=== PATIENT | male | born 1945 | race Caucasian/White ===

== ENCOUNTER 2024-09-14 16:15 | Emergency (ER) | payer OTHER, SELFPAY ==
[2024-09-14 16:22] VITALS: BP 167/94; PULSE 72; RESP 18; TEMP 36.5; O2SAT 97; BMI 23.5
--- NOTE | 2024-09-14 16:45 | ED.GENADULT ---
HPI - General Adult General Chief complaint: Abdominal Pain Stated complaint: Abdominal Pain Time Seen by Provider: 09/14/24 16:23 Source: patient Mode of arrival: ambulatory Limitations: no limitations History of Present Illness HPI narrative: 79-year-old male with a history of hypertension, hyperlipidemia, upper extremity paresthesia, recent diagnosis of bronchitis, history of cholecystectomy presents today with epigastric pain for the last 2 or 3 days. Mylanta makes it better. Nothing seems to make it worse. It is not associated with eating. Does not take his appetite away. He denies diarrhea or constipation. He denies fevers or chills. He denies pain with movement. Denies alcohol use. Denies tobacco use. Is currently on a Medrol Dosepak for his bronchitis. Otherwise denies any new medications. Pain does not radiate into his back. Pain does radiate into the left and right upper quadrant. Related Data Home Medications ?Medication ?Instructions ?Recorded ?Confirmed albuterol 90 mcg/actuation aerosol mcg inhalation Q4-6H PRN 09/14/24 inhaler amlodipine 5 mg tablet 5 mg PO DAILY 09/14/24 09/14/24 aspirin 81 mg chewable tablet 81 mg PO DAILY 09/14/24 09/14/24 (Roberto Chewable Low Dose Aspirin) famotidine 20 mg tablet (Acid 20 mg PO DAILY 09/14/24 09/14/24 Sock Ironer (famotidine)) gabapentin 100 mg capsule 100 mg PO TID 09/14/24 09/14/24 lisinopril 5 mg tablet 5 mg PO DAILY 09/14/24 09/14/24 methylprednisolone 4 mg tablets in See Rx Instructions PO .COMPLEX 09/14/24 09/14/24 a dose pack (Medrol (Artemio)) Previous Rx's ?Medication ?Instructions ?Recorded sucralfate 1 gram tablet (Carafate) 1 g PO QID PRN #30 tabs 09/14/24 Allergies Allergy/AdvReac Type Severity Reaction Status Date / Time No Known Drug Allergies Allergy Verified 09/14/24 16:33 Review of Systems Status of ROS: Reports: 10 or more systems reviewed and unremarkable except as noted in History and below PFSH PFSH Social History Smoking Status: Former smoker How often do you have a drink containing alcohol: never AUDIT-C Alcohol total score: 0 Non-prescribed substance use: denies use Exam Narrative: Exam Narrative: Well-nourished well-developed patient in no acute distress. Alert and oriented. Answers questions appropriately. Mood and affect are appropriate. Thoughts are goal oriented and rational. No tangential or magical thinking noted. Patient speaks in full sentences without needing to catch his breath. HEENT: Normocephalic atraumatic. Pupils are equally round reactive to light. Extraocular muscles are intact. Conjunctivae are moist without any icterus noted. Moist mucous membranes. Posterior pharynx is normal. Neck is soft without any lymphadenopathy or thyromegaly. No masses are appreciated. Cardiovascular: Heart is regular rate and rhythm S1 and S2 are present without any murmurs. Lungs: Clear to auscultation bilaterally no wheezes rhonchi or rales are appreciated. Patient takes deep breaths without any discomfort. Abdomen: Soft and nondistended with normal bowel sounds. He has mild epigastric discomfort. Mild right and left upper quadrant discomfort. Negative Carson sign. Hyperactive bowel sounds. Extremities: Bilateral lower extremities are without edema. Skin: Well perfused without any obvious rashes. Const: Vital Signs, click to edit/add: Vital Signs - 24 hr 09/14/24 16:22 Temperature 97.7 F Pulse Rate [Pulse Oximeter] 72 Respiratory Rate 18 Blood Pressure [Ri t Upper Arm] 167/94 H Pulse Oximetry 97 Oxygen Delivery Me thod Room Air Course Course ED Course: Patient was given a dose of Carafate. EKG, read by me, shows normal sinus rhythm, pulse 63. Right bundle-branch block. Blood work was unremarkable. Patient felt better after Carafate. Vital Signs Vital signs: Initial Vital Signs Temperature 97.7 F 09/14/24 16:22 Temperature Source Temporal Artery Scan 09/14/24 16:22 Pulse Rate 72 09/14/24 16:22 Respiratory Rate 18 09/14/24 16:22 Blood Pressure 167/94 H 09/14/24 16:22 Blood Pressure Mean 118 H 09/14/24 16:22 Blood Pressure Position Sitting 09/14/24 16:22 Pulse Oximetry 97 09/14/24 16:22 Oxygen Delivery Method Room Air 09/14/24 16:22 Vital Signs Temperature 97.7 F 09/14/24 16:22 Pulse Rate 72 09/14/24 16:22 Respiratory Rate 18 09/14/24 16:22 Blood Pressure 167/94 H 09/14/24 16:22 Pulse Oximetry 97 09/14/24 16:22 Oxygen Delivery Method Room Air 09/14/24 16:22 Temperature 97.7 F 09/14/24 16:22 Pulse Rate 72 09/14/24 16:22 Respiratory Rate 18 09/14/24 16:22 Blood Pressure 167/94 H 09/14/24 16:22 Pulse Oximetry 97 09/14/24 16:22 Oxygen Delivery Method Room Air 09/14/24 16:22 Medications Administered Medications: Discontinued Medications Generic Name Dose Route Start Last Admin Trade Name Freq PRN Reason Stop Dose Admin Sucralfate 1 gm 09/14/24 16:39 09/14/24 16:56 Sucralfate 1 Gm Tablet PO 09/14/24 16:40 1 gm ONCE ONE Administration Medical Decision Making MDM Narrative Medical decision making narrative: 79-year-old male with epigastric discomfort likely due to gastritis versus peptic ulcer disease. Other things considered included pancreatitis, ischemic bowel, hepatitis. Recommend daily Prilosec and Carafate p.r.n.. Follow-up as needed. Lab Data Lab results reviewed: Yes I reviewed the patient's lab results Labs: Lab Results 09/14/24 09/14/24 Range/Units 16:58 16:58 WBC 6.88 (4.50-11.00) K/uL RBC 4.18 L (4.30-5.90) m/uL Hgb 12.7 L (13.5-17.5) gm/dL Hct 38.0 (37.0-53.0) % MCV 91 (80-100) fL MCH 30 (26-34) pg MCHC 33 (32-36) gm/dL RDW Coeff of Diamond 12.2 (11.5-15.5) % Plt Count 300 (140-440) K/uL Neut % (Auto) 76.4 H (42.0-72.0) % Lymph % (Auto) 10.9 L (20-44) % [place] % (Auto) 11.3 H (0.0-11.0) % Eos % (Auto) 0.0 (0.0-7.0) % Baso % (Auto) 0.1 (0.0-3.0) % Neut # (Auto) 5.30 (1.7-7.0) K/uL Lymph # (Auto) 0.70 L (0.90-2.90) K/uL [place] # (Auto) 0.80 (0.00-0.90) K/UL Eos # (Auto) 0.00 (0.00-0.50) K/uL Baso # (Auto) 0.01 (0.00-0.30) K/uL Abs Immat Gran (auto) 0.09 (0.00-0.30) K/uL Imm/Tot Granulo (auto) 1.3 % Sodium 133 L (135-149) mmol/L Potassium 4.8 (3.6-5.1) mmol/L Chloride 96 (96-114) mmol/L Carbon Dioxide 29 (20-32) mmol/L Anion Gap 8 (7-15) mEq/L BUN 37 H (7-30) mg/dL Creatinine 0.9 (0.5-1.5) mg/dL Estimated Creat Clear 55.08 Estimated GFR 86 ml/min Glucose 135 H (60-115) mg/dL Lactate 1.2 (0.5-1.9) mmol/L Calcium 9.8 (8.4-10.6) mg/dL Total Bilirubin 1.1 (0.1-1.5) mg/dL Direct Bilirubin 0.3 (0.0-0.5) mg/dL AST 53 H (12-35) U/L ALT 44 (4-50) U/L Alkaline Phosphatase 65 (40-150) U/L Troponin I < 0.01 L Cancelled (0.01-0.04) ng/mL C-Reactive Protein < 0.5 L (0.5-1.0) mg/dL Total Protein 7.8 (6.0-8.3) g/dL Albumin 4.8 (3.3-5.0) g/dL Lipase 53 (23-300) U/L ECG Data Attestation: I personally reviewed and interpreted this ECG as follows: Discharge Plan Discharge Clinical Impression: Gastritis Patient Disposition: Home, Self-Care Condition: Stable Instructions: Diet for Stomach Ulcers and Gastritis (ED) Additional Instructions: Your pain is likely caused by an inflammation of the stomach or an ulcer of the stomach. You need to take a daily medication to decrease the amount of acid that is inside your stomach. You can buy omeprazole or Prilosec [id number] and take 1 tablet daily. In the meantime, you will be prescribed Carafate which will coat your stomach and relief your discomfort. You can take this up to 4 times a day. Usually, people do not need this for more than 1 week, until the Prilosec kicks in. You may need to have an endoscopy for a camera to look inside your stomach if you are not feeling better soon. I recommend you follow-up with your primary care provider in approximately 1 week to discuss how you are feeling and to discuss if you need any further testing. You can stop taking the Famotidine- this is similar to Prilosec but is a shorter acting, meaning it does not last as long. Prescriptions: New sucralfate [Carafate] 1 gram tablet 1 g PO QID PRNQty: 30 0RF No Action aspirin [Roberto Chewable Aspirin] 81 mg tablet,chewable 81 mg PO DAILY gabapentin 100 mg capsule 100 mg PO TID methylprednisolone [Medrol (Artemio)] 4 mg tablets,dose pack See Rx Instructions .ROUTE .COMPLEX Rx Instructions: orally per package directions amlodipine 5 mg tablet 5 mg PO DAILY famotidine [Acid Sock Ironer (famotidine)] 20 mg tablet 20 mg PO DAILY lisinopril 5 mg tablet 5 mg PO DAILY albuterol 90 mcg/actuation aerosol inhalation Q4-6H PRN Follow Up/Referrals: Provider,Not a Local [Primary Care Provider] - Stand Alone Forms: Local Eye [facility] Info Instructions
[2024-09-14] MEDS: SUCRALFATE 1 GM TABLET PO (16:56)
[2024-09-14 17:00] VITALS: BP 170/93; PULSE 64; O2SAT 94
[2024-09-14 17:04] LABS: Basophils Absolute Auto 0.01 K/uL (0.00-0.30); Basophils Percent Auto 0.1 % (0.0-3.0); Hemoglobin* 12.7 gm/dL (13.5-17.5); Immature Granulocytes Abs Auto 0.09 K/uL (0.00-0.30); Immature Granulocytes Pct Auto 1.3 %; Lymphocytes Percent Auto 10.9 % (20-44); Mean Corpuscular HGB Conc 33 gm/dL (32-36); Mean Corpuscular Hemoglobin 30 pg (26-34); Mean Corpuscular Volume 91 fL (80-100); Monocytes Percent Auto 11.3 % (0.0-11.0); Neutrophils Percent Auto 76.4 % (42.0-72.0); Platelet Count* 300 K/uL (140-440); RDW Coefficient of Variation % 12.2 % (11.5-15.5); Red Blood Count 4.18 m/uL (4.30-5.90); White Blood Count* 6.88 K/uL (4.50-11.00)
[2024-09-14 17:05] LABS: Lactate* 1.2 mmol/L (0.5-1.9)
[2024-09-14 17:24] LABS: Albumin* 4.8 g/dL (3.3-5.0); Chloride* 96 mmol/L (96-114); Sodium* 133 mmol/L (135-149)
[2024-09-14 17:25] LABS: Potassium* 4.8 mmol/L (3.6-5.1)
[2024-09-14 17:28] LABS: Alkaline Phosphatase* 65 U/L (40-150); Anion Gap 8 mEq/L (7-15); Aspartate Amino Transferase* 53 U/L (12-35); Bilirubin Direct* 0.3 mg/dL (0.0-0.5); Bilirubin Total* 1.1 mg/dL (0.1-1.5); Blood Urea Nitrogen* 37 mg/dL (7-30); Calcium* 9.8 mg/dL (8.4-10.6); Carbon Dioxide* 29 mmol/L (20-32); Creatinine* 0.9 mg/dL (0.5-1.5); Est. Creatinine Clearance* 55.08; Estimated Glomerular Filt Rate 86 ml/min; Glucose* 135 mg/dL (60-115); Lipase* 53 U/L (23-300); Total Protein* 7.8 g/dL (6.0-8.3)
[2024-09-14 17:29] VITALS: BP 159/109
[2024-09-14 17:29] LABS: Alanine Aminotransferase* 44 U/L (4-50)
[2024-09-14 17:30] LABS: Slide Review Reflex No
[2024-09-14 17:32] LABS: C Reactive Protein* < 0.5 mg/dL (0.5-1.0)
[2024-09-14 17:44] LABS: Troponin I* < 0.01 ng/mL (0.01-0.04)
[2024-09-14 18:00] VITALS: BP 158/74
== END 2024-09-14 18:44 | disposition home or self-care (01) ==
PROVIDERS: Emergency Provider Family Medicine
DX: K29.70 Gastritis, unspecified, without bleeding (principal)
CPT/HCPCS: 36415; 80048; 80076; 83605; 83690; 84484; 85025; 86140; 93005; 99284; A9270

== ENCOUNTER 2024-11-17 19:00 | Emergency (ER) | payer OTHER, SELFPAY ==
--- OUTSIDE RECORDS SUMMARY | 2024-11-17 19:03 | XMS_ITS | Encounter Summary ---
Author Organization [facility] Address [address] [place] [address] Care Team Providers Care It Technician Name Role Phone Tita Coates APRN, C.N.P., D.N.P. Primary Car e Provider Reason for Visit * Reason Comments Carpal Tunnel Carpal Tunnel * Outpatient (Routine) - Closed Specialty Diagnoses / Procedures Referred By Yaneth dawson Referred To Contact Orthopedic Surgery Diagnoses Carpal Tunnel Syndrome Bilateral Tita Coates APRN, C.N.P., D.N.P. [address] [place] [address] Phone: tel: fax: [facility] Region Referral ID Status Reason Start Date Expiration Date Visits Re quested Visits Authorized [id number] Closed 10/09/2024 04/10/2026 1 1 Encounter Details Date Type Department Care Team (Latest Contact Info) Description 10/30/2024 1:15 PM CDT Comprehensive Visit Department of Orthopedic Surgery in [place], [place] [address] [phone] Leonila Levy PWilber.-Eufemia., P.A. [address] [phone] Carpal Tunnel Syndrome Bilateral Social History Tobacco Use Types Packs/Day Years Used Date Smoking Tobacco: Former Cigarettes Q uit: 1988 Smokeless Tobacco: Never Alcohol Use Standard Drinks/Week Comments No 0 (1 standard drink = 0.6 oz pur e alcohol) [facility] Utilities Answer Date Recorded In the past 12 months has e electric, gas, oil, or water company threatened to shut off services in your home? No 10/27/2023 Humiliation, Afraid, Rape, and Kick questionnair e Answer Date Recorded Within the last year, have y ou been afraid of your partner or ex-partner? No 10/27/2023 Within the last year, have y ou been humiliated or emotionally abused in other ways by your partner or ex-partner? No Within the last year, have y ou been kicked, hit, slapped, or otherwise physically hurt by your partner or ex-partner? No 10/27/2023 Within the last year, have y ou been raped or forced to have any kind of sexual activity by your partner or ex-partner? No 10/27/2023 Social Connection and Isolat ion Panel [NHANES] Answer Date Recorded In a typical week, how many times do you talk on the phone with family, friends, or neighbors? More than three times a week 10/22/2021 How often do you get togethe r with friends or relatives? More than three times a week 10/22/2021 How often do you attend chur ch or samaritan services? Never 10/22/2021 Do you belong to any clubs o r organizations such as adventism groups, unions, fraternal or athletic groups, or school groups? No 10/22/2021 How often do you attend meet ings of the clubs or organizations you belong to? Never 10/22/2021 Are you , , di vorced, , never , or living with a partner? 10/22/2021 AUDIT-C Answer Date Recorded Q1: How often do you have a drink containing alc ohol? Never 10/22/2021 Average Number of Drinks Not on file 022 Frequency of Binge Drinking Not on file 01/2022 Overall Financial Resource Strain (CARDIA) Answe r Date Recorded How hard is it for you to pa y for the very basics like food, housing, medical care, and heating? Not hard at all 10/22/2021 PHQ-2 Answer Date Recorded PHQ-2 Score 0 09/05/2024 [facility] - Occupational Stress Questionnaire Answer Date Recorded Do you feel stress - tense, restless, nervous, or anxious, or unable to sleep at night because your mind is troubled all the time - these days? Not at all 10/22/2021 Exercise Vital Sign Answer Date Recorde d On average, how many days pe r week do you engage in moderate to strenuous exercise (like a brisk walk)? 4 days 10/27/2023 On average, how many minutes do you engage in exercise at this level? 10 min 10/27/2023 Hunger Vital Sign Answer Date Recorded Within the past 12 months, y ou worried that your food would run out before you got the money to buy more. Never true 10/27/19 24 Within the past 12 months, t he food you bought just didn't last and you didn't have money to get more. Never true 10/27/2023 PRAPARE - Transportation Answer Date Re corded In the past 12 months, has l ack of transportation kept you from medical appointments or from getting medications? No 10/16 In the past 12 months, has l ack of transportation kept you from meetings, work, or from getting things needed for daily living? No 10/27/2023 Depression Answer Date Recor ded PHQ-9 Total Score (max 27) 0 10/26 Nutrition Answer Date Recorded On average, how many serving s of fruits and vegetables do you eat per day (serving size is equal to 1 cup or approximately the size of a tennis ball)? 0-2 10/27/2023 Dental Answer Date Recorded Dental: Regular Dentist No 10/23/19 22 Employment Answer Date Recorded Employment status Employed and actively working without restrictions 10/27/2023 Housing Stability Answer Date Recorded What is your living situation today? I have a [facility] [place] place to live 10/27/2023 Education Answer Date Recorded What is the highest level of school you have completed or the highest degree you have received? 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 - 10/30/2024 1:15 PM CDT The patient has been informed of the other medical supply locations in the immediate area. The patient has been fitted with a Comfort Form wrist brace size medium for his Bilateral wrist as requestedby Leonila Levy PA-C Instructions were given on the proper care and usage of the product with the patient verbalizing understanding of the instructions. [facility] return and warranty policy was given and reviewed with the patient paperwork has been faxed to the [facility]. Marvin Lawrence A.T.C. Clinical Statistical Engineer Department of Orthopedics documented in this encounter Consult Notes * Leonila Levy P.A.-C., P.A. - 10/30/2024 1:15 PM CDT CHIEF COMPLAINT Bilateral hand numbness HISTORY OF PRESENT ILLNESS Mr. Zamarripa is a pleasant 79 y.o. year old male here today for bilateral hand numbness. This has been going on for about 1 year. The left is worse than the right. 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 He has the worst pain at night, he states that his thumb, index, middle and sometimes the ring finger will go numb, at bedtime they become significantly painful. He has not been wearing any braces. He gets up to move around and changed positions which is helpful for him, then he is able to go back to sleep for about 15 minutes before he is awakened again due to numbness and pain. During the day he occasionally has numbness in his hand when he is driving or holding ontoobjects for period of time. He states that his symptoms are the same on the right side however muchless bothersome for him. PHYSICAL EXAM GENERAL: This is a well-nourished, well-developed 79 y.o. male. He is alert and oriented x3. No acute distress. He is cooperative and responds appropriately to all questions. MUSCULOSKELETAL: No tenderness to palpation of the left or right hand. Negative Tinel's at the wrist and elbow bilaterally, negative Phalen's test bilaterally. Negative median nerve compression test bilaterally. Negative Nathaniel's test bilaterally. NEURO: Sensation is intact to light touch throughout bilateral upper extremities. Cap refill is less than 2 seconds. DIAGNOSTICS Bilateral upper extremity EMG performed on 10/09/2024 reviewed and shows electrophysiologic evidence of severe median neuropathies at the wrists bilaterally consistent with carpal tunnel syndrome. 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 ASSESSMENT/PLAN #1 Carpal Tunnel Syndrome Bilateral We have discussed that his EMG is consistent with bilateral severe carpal tunnel syndrome. We have discussed options including corticosteroid injection and carpal tunnel release. Due to the severity of his carpal tunnel syndrome I have recommended surgical release. He states that his insurance [facility]allows [facility]. I will reach out to colleagues in [place] for potential surgery to occur there. I will call him when I have heard back from their facility. documented in this encounter Plan of Treatment Not on file documented as of this encounter Visit Diagnoses Diagnosis Carpal Tunnel Syndrome Bilateral documented in this encounter Additional Health Concerns Assessment Noted Time PHQ-9 Depression Total Score: 0 10/27/19 24 10:34 AM CDT documented as of this encounter Care Teams It Technician Relationship Specialty Start Date End Date Tita Coates APRN, C.N.P., D.N.P. [address], [place] [address] PCP - General 03/18/24 documented as of this encounter
--- OUTSIDE RECORDS SUMMARY | 2024-11-17 19:03 | XMS_ITS | Encounter Summary ---
Author Organization [facility] Address [address] [place] [address] Care Team Providers Care Site Safety Coordinator Name Role Phone JaxonTita Vick BUENO, C.N.P., D.N.P. Primary Car e Provider Encounter Details Date Type Department Care Team (Late st Contact Info) Description 11/02/2024 Clinical Communication Department of Orthopedic Surgery in [place], [place] [address] [address] Leonila Levy P.A.-C., P.A. [address] [phone] Social History Tobacco Use Types Packs/Day Years Used Date Smoking Tobacco: Former Cigarettes Q uit: 1988 Smokeless Tobacco: Never Alcohol Use Standard Drinks/Week Comments No 0 (1 standard drink = 0.6 oz pur e alcohol) [facility] Utilities Answer Date Recorded In the past 12 months has [employer], gas, oil, or water [employer] threatened to shut off services in your [...] often do you attend chur ch or anabaptist services? Never 10/22/2021 Do you belong to any clubs o r organizations such as uatsdin groups, unions, fraternal or athletic groups, or [...] Answer Date Recorded PHQ-2 Score 0 09/05/2024 [facility] - Occupational Stress Questionnaire Answer Date Recorded [...] Date Recorded Dental: Regular Dentist No 10/23/19 Employment Answer Date Recorded Employment status Employed and actively working without restrictions 10/27/2023 Housing Stability Answer Date Recorded What is your living situation today? I have a [facility] place to live 10/27/2023 Education Answer Date Recorded What is the highest level of school you have completed or the highest degree you have received? 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 - 11/06/2024 8:16 AM CDT Referral placed to [facility] region. * Telephone Encounter - Mimi Chand C.M.A. - 11/02/2024 4:51 PM CDT Contacted patient and informed him of Leonila Levy's advise. Please let patient know that he could have surgery in [facility] or possibly [place] (he would have to see Dr. Salinas) for consult and possible surgery for his carpal tunnel surgery at a [facility]. I can send a referral for him based on where he would like to go. Patient verified understanding and stated that he would like the Referral to go to [place]. Please place Referral for [place] location. Msg forwarded to provider for review and response. documented in this encounter Plan of Treatment Not on file documented as of this encounter Visit Diagnoses Not on filedocumented in this encounter Additional Health Concerns Assessment Noted Time PHQ-9 Depression Total Score: 0 10/27/19 24 10:34 AM CDT documented as of this encounter Care Teams Site Safety Coordinator Relationship Specialty Start Date End Date Tita Coates APRN, C.N.P., D.N.P. [address] [place] [address] PCP - General 03/18/24 documented as of this encounter
--- OUTSIDE RECORDS SUMMARY | 2024-11-17 19:03 | XMS_ITS | Encounter Summary ---
Author Organization [facility] Address [address] [place] [address] Care Team Providers Care Bean Roaster Name Role Phone Tita Coates APRN, C.N.P., D.N.P. Primary Car e Provider Reason for Referral * Medication Prior Authorization - Closed Specialty Diagnoses / Procedures Referred By Contalyssa t Referred To Contact Diagnoses Hypertension Essential Primary Tita Coates APRN, C.N.P., D.N.P. [address] [address] Phone: tel: fax: Referral ID Status Reason Start Date Expiration Date Visits Re quested Visits Authorized [id number] Closed 1 1 Encounter Details Date Type Department Care Team (Late st Contact Info) Description 10/09/2024 Orders Only Department of Internal Medicine in [place], [place] [address] [place] [phone] Tita Coates APRN, C.N.P., D.N.P. [address] [phone] Hypertension Essential Primary Social History Tobacco Use Types Packs/Day Years Used Date Smoking Tobacco: Former Cigarettes Q uit: 1988 Smokeless Tobacco: Never Alcohol Use Standard Drinks/Week Comments No 0 (1 standard drink = 0.6 oz pur e alcohol) [facility] Utilities Answer Date Recorded In the past [...] often do you attend chur ch or orthodox services? 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 [address] [phone] PCP - General 03/18/24 documented as of this encounter
--- OUTSIDE RECORDS SUMMARY | 2024-11-17 19:03 | XMS_ITS | Encounter Summary ---
Author Organization [facility] Address [address] [place] [address] Care Team Providers Care Mds Rn Name Role Phone Tita Coates MYLES, C.N.P., D.N.P. Primary Car e Provider Reason for Visit * Reason Comments Med Refill Encounter Details Date Type Department Care Team (Late st Contact Info) Description 09/23/2024 Refill Department of Family Medicine, [facility], in [place], [place] [address] [phone] Elsy Winn APRN, C.N.P., D.N.P. [address] [phone] Med Refill Social History Tobacco Use Types Packs/Day Years Used Date Smoking Tobacco: Former Cigarettes Q uit: 1988 Smokeless Tobacco: Never Alcohol Use Standard Drinks/Week Comments No 0 (1 standard drink = 0.6 oz pur e alcohol) [facility] Utilities Answer Date Recorded In the past 12 months has [employer], gas, oil, or water company threatened [...] often do you attend chur ch or yarsani services? Never 10/22/2021 Do you belong to any clubs o r organizations such as anglican groups, unions, fraternal or athletic groups, or [...] Answer Date Recorded PHQ-2 Score 0 09/05/2024 [facility] of Occupat ional Health - Occupational Stress [...] money to buy more. Never true 10/27/19 Within the past 12 months, t he [...] your living situation today? I have a [facility] place to live 10/27/2023 Education Answer Date Recorded What is the highest level of school you have completed or the highest degree you have received? 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 [address] [place] [phone] PCP - General 03/18/24 documented as of this encounter
--- OUTSIDE RECORDS SUMMARY | 2024-11-17 19:03 | XMS_ITS | Encounter Summary ---
Author Organization [facility] Address [address] [place] [address] Care Team Providers Care Obstetrics Gynecology Physician Name Role Phone Tita Coates APRN, C.N.P., D.N.P. Primary Car e Provider Reason for Visit * Reason Onset Date Comments Results 09/05/2024 Encounter Details Date Type Department Care Team (Late st Contact Info) Description 09/05/2024 Results Follow-Up Department of Internal Medicine in [place], [place] [address] [phone] Tita Coates APRN, C.N.P., D.N.P. [address] [phone] Albumin, Random, Urine, EMG Social History Tobacco Use Types Packs/Day Years Used Date Smoking Tobacco: Former Cigarettes Q uit: 1988 Smokeless Tobacco: Never Alcohol Use Standard Drinks/Week Comments No 0 (1 standard drink = 0.6 oz pur e alcohol) [facility] Utilities Answer Date Recorded In the past [...] 10/22/2021 How often do you attend chur or church services? Never 10/22/2021 Do you belong to any clubs o r organizations such as restorationism groups, unions, fraternal or athletic groups, or [...] Answer Date Recorded PHQ-2 Score 0 09/05/2024 [facility] of Occupat ional Health - Occupational Stress [...] your living situation today? I have a [facility] place to live 10/27/2023 Education Answer Date Recorded What is the highest level of school you have completed or the highest degree you have received? 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 [address] [place] [phone] PCP - General 03/18/24 documented as of this encounter
--- OUTSIDE RECORDS SUMMARY | 2024-11-17 19:03 | XMS_ITS | Encounter Summary ---
Author Organization [facility] Address [address] [place] [address] Care Team Providers Care Top Stop Attacher Name Role Phone Tita Alcala APRN, C.N.P., D.N.P. Primary Car e Provider Reason for Visit * Reason Comments Emg * Outpatient (Routine) - Closed Specialty Diagnoses / Procedures Referred By Yaneth dawson Referred To Contact Diagnoses Numbness Hand Procedures EMG Tita Alcala APRN, C.N.P., D.N.P. [address] [address] Phone: tel: fax: [facility] Referral ID Status Reason Start Date Expiration Date Visits Re quested Visits Authorized [id number] Closed 09/05/2024 12/06/2025 1 1 Encounter Details Date Type Department Care Team (Late st Contact Info) Description 10/09/2024 11:15 AM CDT Diagnostic Department of Neurology in [place], [place] [address] [place] [phone] Ayana Brooks D.O. [address] [place] [address] Numbness Hand Social History Tobacco Use Types Packs/Day Years Used Date Smoking Tobacco: Former Cigarettes Q uit: 1988 Smokeless Tobacco: Never Alcohol Use Standard Drinks/Week Comments No 0 (1 standard drink = 0.6 oz pur e alcohol) [facility] Utilities Answer Date Recorded In the [...] often do you attend chur ch or hindu services? Never 10/22/2021 Do you belong to any clubs o r organizations such as jewish groups, unions, fraternal or athletic groups, or [...] Answer Date Recorded PHQ-2 Score 0 09/05/2024 [facility] of Occupat ional Health - Occupational Stress [...] your living situation today? I have a [facility] place to live 10/27/2023 Education Answer Date Recorded What is the highest level of school you have completed or the highest degree you have received? 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 09-Oct-2024 Electromyography Final Report Study Number: 1 EMG Director Of Family Service Center: Ayana Brooks 127 or [phone] Referred by: TITA ALCALA () Referred for: L>R hand numbness Referral Code: 211 RX: 211 SUMMARY: Prior to starting the procedure, the patient's identity was verified, pertinent available records were reviewed, the nature of the procedure was explained, the appropriate sites of the exam were confirmed directly with the patient, and a pre-procedure pause was performed for final verification of all of the above. Nerve conduction studies showed low amplitude median compound muscle action potentials with prolonged median motor distal latencies bilaterally. Median sensory responses were absent bilaterally. Ulnar motor studies were normal bilaterally. The ulnar sensory nerve action potentials were reduced bilaterally and radial sensory nerve action potentials were reduced on the left. Needle examination remarkable for large motor units in C5-6 innervated muscles on the left. CLINICAL INTERPRETATION: Abnormal study. There is electrophysiologic evidence of the followin) Severe median neuropathies at both wrists as seen with carpal tunnel syndrome. 2) Old/chronic inactive C5-C6 radiculopathy on the left. 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 Wilder Brooks (127 or [phone]) NERVE CONDUCTIONS Record Rep Normal Normal Distal Normal F-Wave F-Wave Temp Nerve Type Site Stim Side Amp Amp CV CV Lat Lat Lat Est ( C) Median Motor APB L 3.1 (> 4.0) 51 (> 48) 8.4 (< 4.5) 33.8 Ulnar Motor ADM L 6.5 (> 6.0) 52 (> 51) 2.4 (< 3.6) 33.5 Median Sensory Dig II L NR (> 15.0) (> 56) NR (< 3.6) 33.1 Radial Sensory Wrist L 11 (> 20.0) (> 49) 2.2 (< 2.9) 32.9 Ulnar Sensory Dig V L 6 (> 10.0) 54 (> 54) 3.0 (< 3.1) 33.8 Median Motor APB R 2.7 (> 4.0) 47 (> 48) 8.5 (< 4.5) 33.7 Ulnar Motor ADM R 6.4 (> 6.0) 52 (> 51) 2.8 (< 3.6) 34.2 Median Sensory Dig II R NR (> 15.0) (> 56) NR (< 3.6) 33.3 Ulnar Sensory Dig V R 4 (> 10.0) 54 (> 54) 2.9 (< 3.1) 34.7 NEEDLE EMG Ins Spont MUP Recruitment Duration Amplitude Phases Muscle Side Act Fib Fasc Normal Activ Reduced Rapid Long Short High Low % Turns First dorsal interosseous L NL 0 0 ----- +/- +/- +/- Extensor indicis proprius L NL 0 0 NL Pronator teres L NL 0 0 NL Biceps brachii L NL 0 0 ----- + + + Deltoid L NL 0 0 ----- + + + Triceps brachii L NL 0 0 NL First dorsal interosseous R NL 0 0 NL Pronator teres R NL 0 0 ----- +/- +/- +/- Triceps brachii R NL 0 0 NL This interpretation has been electronically signed: Ayana Brooks D.O. at 10/09/2024 12:54:29 PM CDT Tita Alcala APRN, C.N.P., D.N.P. NEUROLOGY OR DERABLES Final Result EMG documented in this encounter Visit Diagnoses Diagnosis Numbness Hand documented in this encounter Additional Health Concerns Assessment Noted Time PHQ-9 Depression Total Score: 0 10/27/19 24 10:34 AM CDT documented as of this encounter Care Teams Top Stop Attacher Relationship Specialty Start Date End Date Tita Alcala APRN, C.N.P., D.N.P. [address] [place] [phone] PCP - General 03/18/24 documented as of this encounter
--- OUTSIDE RECORDS SUMMARY | 2024-11-17 19:03 | XMS_ITS | Encounter Summary ---
Author Organization [facility] Address [address] [place] [address] Care Team Providers Care Rotary Furnace Tender Name Role Phone Tita Coates APRN, C.N.P., D.N.P. Primary Car e Provider Encounter Details Date Type Department Care Team (Late st Contact Info) Description 10/09/2024 Clinical Communication Department of Internal Medicine in [place], [place] [address] [phone] Tita Coates APRN, C.N.P., D.N.P. [address] [phone] Social History Tobacco Use Types Packs/Day Years Used Date Smoking Tobacco: Former Cigarettes Q uit: 1988 Smokeless Tobacco: Never Alcohol Use Standard Drinks/Week Comments No 0 (1 standard drink = 0.6 oz pur e alcohol) [facility] Utilities Answer Date Recorded In the past 12 months has [employer], gas, oil, or water [employer] threatened to shut off services in your [...] often do you attend chur ch or tenriism services? Never 10/22/2021 Do you belong to any clubs o r organizations such as episcopal groups, unions, fraternal or athletic groups, or [...] Answer Date Recorded PHQ-2 Score 0 09/05/2024 [facility] of Occupat ional Health - Occupational Stress [...] your living situation today? I have a [facility] place to live 10/27/2023 Education Answer Date Recorded What is the highest level of school you have completed or the highest degree you have received? 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 - 10/09/2024 11:43 AM CDT Patient was in for EMG testing today and brought a letter with him that he received from [employer] 09/27/24 stating that they need more information before they can fill his amlodipine 10 mg tab prescription. You can either call them at [phone] or fax the information to [phone]. Thank you. documented in this encounter Plan of Treatment Not on file documented as of this encounter Visit Diagnoses Not on filedocumented in this encounter Additional Health Concerns Assessment Noted Time PHQ-9 Depression Total Score: 0 10/27/19 10:34 AM CDT documented as of this encounter Care Teams Rotary Furnace Tender Relationship Specialty Start Date End Date Tita Coates APRN, C.N.P., D.N.P. [address] [place] [phone] PCP - General 03/18/24 documented as of this encounter
--- OUTSIDE RECORDS SUMMARY | 2024-11-17 19:03 | XMS_ITS | Encounter Summary ---
Author Organization [facility] Address [address] [place] [address] Care Team Providers Care Diamond Driller Helper Name Role Phone JaxonTita Vick BUENO C.N.PMey, D.N.P. Primary Car e Provider Reason for Referral * Outpatient (Routine) - Authorized Specialty Diagnoses / Procedures Referred By Yaneth dawson Referred To Contact Orthopedic Surgery Diagnoses Carpal Tunnel Syndrome Bilateral Leonila Levy P.A.-C., P.A. [address] [phone] Phone: tel: fax: [facility] Region Referral ID Status Reason Start Date Expiration Date V isits Requested Visits Authorized [id number] Authorized 11/06/2024 05/08/2026 1 1 Scheduling Instructions Wants to see Dr. Salinas, with potential to have surgery in [place]. Encounter Details Date Type Department Care Team (Late st Contact Info) Description 11/06/2024 Orders Only Department of Orthopedic Surgery in [place], [place] [address] [phone] Leonila Levy P.A.-C., P.A. [address] [phone] Carpal Tunnel Syndrome Bilateral (Primary Dx) Social History Tobacco Use Types Packs/Day Years Used Date Smoking Tobacco: Former Cigarettes Q uit: 1988 Smokeless Tobacco: Never Alcohol Use Standard Drinks/Week Comments No 0 (1 standard drink = 0.6 oz pur e alcohol) [facility] Utilities Answer Date Recorded In the [...] How often do you attend chur or muslim services? 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 Gender Identity Not on file Sexual Orientation Not on file documented as of this encounter Plan of Treatment Scheduled Referrals Name Type Priority Associated Diagnoses Order Schedule Orthopedic Surgery - Wrist / hand non surgical consult (clinic) Outpatient Referral Routine Carpal Tunnel Syndrome Bilateral Expected: 11/06/2024 (Approximate), Expires: 02/05/2026 documented as of this encounter Visit Diagnoses Diagnosis Carpal Tunnel Syndrome Bilateral- Primary documented in this encounter Additional Health Concerns Assessment Noted Time PHQ-9 Depression Total Score: 0 10/27/19 10:34 AM CDT documented as of this encounter Care Teams Diamond Driller Helper Relationship Specialty Start Date End Date Tita Coates APRN, C.N.P., D.N.P. [address] [place] [phone] PCP - General 03/18/24 documented as of this encounter
--- OUTSIDE RECORDS SUMMARY | 2024-11-17 19:03 | XMS_ITS | Encounter Summary ---
Author Organization [facility] Address [address] [place] [address] Care Team Providers Care Can Tender Name Role Phone Tita Coates APRN, C.N.P., D.N.P. Primary Car e Provider Reason for Referral * Outpatient (Routine) - Closed Specialty Diagnoses / Procedures Referred By Yaneth dawson Referred To Contact Orthopedic Surgery Diagnoses Carpal Tunnel Syndrome Bilateral Tita Coates APRN, C.N.P., D.N.P. [address] [address] Phone: tel: fax: [facility] Referral ID Status Reason Start Date Expiration Date Visits Re quested Visits Authorized [id number] Closed 10/09/2024 04/10/2026 1 1 Encounter Details Date Type Department Care Team (Late st Contact Info) Description 10/09/2024 Orders Only Department of Internal Medicine in [place], [place] [address] [place] [phone] Tita Coates APRN, C.N.P., D.N.P. [address] [phone] Carpal Tunnel Syndrome Bilateral (Primary Dx) Social History Tobacco Use Types Packs/Day Years Used Date Smoking Tobacco: Former Cigarettes Q uit: 1988 Smokeless Tobacco: Never Alcohol Use Standard Drinks/Week Comments No 0 (1 standard drink = 0.6 oz pur e alcohol) [facility] Utilities Answer Date Recorded In the past 12 months has th e electric, gas, oil, or water company [...] any clubs o r organizations such as christian groups, unions, fraternal or athletic groups, or [...] Answer Date Recorded PHQ-2 Score 0 09/05/2024 [facility] of Occupat ional [facility] - Occupational Stress Questionnaire Answer [...] your living situation today? I have a [facility] place to live 10/27/2023 Education Answer Date Recorded What is the highest level of school you have completed or the highest degree you have received? 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 Gender Identity Not on file Sexual Orientation Not on file documented as of this encounter Plan of Treatment Scheduled Referrals Name Type Priority Associated Diagnoses Order Schedule Orthopedic Surgery - Wrist / hand non surgical consult (clinic) Outpatient Referral Routine Carpal Tunnel Syndrome Bilateral Expected: 10/09/2024 (Approximate), Expires: 01/09/2026 documented as of this encounter Visit Diagnoses Diagnosis Carpal Tunnel Syndrome Bilateral- Primary documented in this encounter Additional Health Concerns Assessment Noted Time PHQ-9 Depression Total Score: 0 10/27/19 10:34 AM CDT documented as of this encounter Care Teams Can Tender Relationship Specialty Start Date End Date Tita Coates APRN, C.N.P., D.N.P. [address] [phone] PCP - General 03/18/24 documented as of this encounter
--- OUTSIDE RECORDS SUMMARY | 2024-11-17 19:04 | XMS_ITS | Clinical Summary ---
Author Organization [email or web address] Address [address] [place] [id number] Care Team Providers Care Director Of Global Sales Name Role Phone Thiago Huffman MD Primary Care Provider Allergies No known active allergies Medications DOCOSAHEXANOIC ACID/EPA (FISH OIL ORAL) Take 1,000 mg by mouth once daily. 1 Active atorvastatin (LIPITOR) 10 mg tablet Take 10 mg by mouth at bedtime. 9 Active amLODIPine (NORVASC) 10 mg tabletIndications :HTN (hypertension) Take 1 Tablet (10 mg) by mouth once daily. 10 Tablet 2 Active metoprolol succinate SR (TOPROL XL) 12.5 mg as half tablet Take 12.5 mg by mouth once daily. Active aspirin (ECOTRIN) 81 mg enteric coated tablet Take 81 mg by mouth once daily with a meal. Active albuterol 0.083% (2.5 mg/3 mL) neb solutionIndicatio ns:COPD exacerbation (HC) Inhale 3 mL (2.5 mg) via a nebulizer every 6 hours if needed for Shortness Of Breath or Wheezing. 30 Each 4 Active rx albuterol HFA (PROVENTIL; VENTOLIN) (90 mcg each actuation) inhaler (ED DC MED)Indications:C OPD exacerbation (HC) Inhale 2 Puffs by mouth every 4 hours if needed (wheezing). 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 Cholangitis 11/30/2022 Acute pancreatitis 11/28/2022 Solitary pulmonary nodule 12/16/2018 Rigors 12/16/2018 Liver mass 12/16/2018 Increased bilirubin level 12/16/2018 Diverticulosis 12/16/2018 Cholangiectasis 12/16/2018 Abdominal pain 12/15/2018 Hypercholesterolemia 11/21/2017 Essential hypertension 08/04/2009 Chronic obstructive pulmonary disease 08/04/2009 Immunizations Immunization Administration Dates Next Due Influenza A (H1N1), Inactivated 03/07/2016,07/02 Influenza Virus, Unspecified 04/26/2017, 03/08/2016,04/15/2015,2012 Influenza, High-dose Inactivated 019,03/28/2018,04/26/2017,2014,07/19/2012 Influenza, High-dose Quadriv alent Inactivated 06/04/2021 Influenza, IIV3 (Age 6-35 mos) 05/31/2008 Influenza, IIV3 (Age >=3 years) 06/01/2010 Influenza, IIV4 06/30/2022,05/02/2014 Pneumococcal Poly,23-Valent (Pneumovax) 09/10/2009 Pneumococcal conj 13-Valent (Prevnar 13) 01/31/2015 Tdap 04/03/2019,10/13/2007 Zoster (Zostavax-ZVL, live) 12/09/2011 Family History Medical History Relation Name Comments Cancer Father Full of cancer of unknown type. at age 60. No Known Problems Mother of dsouza dden at around age 90. No Known Problems Other The patien t had no siblings and no biological children. Anesthesia Problem No Family History Relation Name Status Comments Father Mother Other Other Social History Tobacco Use Types Packs/Day Years Used Date Smoking Tobacco: Former Cigarettes Q uit: 1989 Smokeless Tobacco: Never Tobacco Cessation:Counseling Given: Not Answered Comments:He quit smoking around 1989. Alcohol Use Standard Drinks/Week Comments No 0 (1 standard drink = 0.6 oz pur e alcohol) PHQ-2 Answer Date Recorded PHQ-2 TOTAL SCORE 0 01/27/2023 Interpersonal Safety Answer Date Record ed Are you being hit, kicked, p ushed or yelled at (see row info)? No 04/22/2024 Interpersonal Safety Abuse 12 - 18 Not on file 04/22/2024 Interpersonal Safety Ambulatory Vulnerability No t on file 04/22/2024 Sex and Gender Information Value Date Recorded Sex Assigned at Not on file Legal Sex Male 6:19 AM COLLECTION ADMINISTRATOR Gender Identity Not on file Sexual Orientation Not on file Obstetrics History Last Filed Vital Signs Vital Sign Reading Time Taken Comments Blood Pressure 152/85 04/22/2024 8:00 PM CDT Pulse 65 04/22/2024 8:00 PM CDT Temperature 36.9 C (98.4 F) 04/22/2024 5:11 PM CDT Respiratory Rate 17 04/22/2024 6:30 PM CDT Oxygen Saturation 98% 04/22/2024 8:00 PM CDT Inhaled Oxygen Concentration - - Weight 69.8 kg (153 lb 14.1 oz) 04/22/2024 5:12 PM CDT Height 172.7 cm (5' 8) 04/22/2024 5:12 PM CDT Body Mass Index 23.4 04/22/2024 5:12 PM CDT Plan of Treatment Health Maintenance Due Date Last Done Comments Medicare Wellness for age 65+ 2009 Zoster (shingles) series for age 50+ (2 of 3) 02/03/2012 12/09/2011 RSV vaccine for adults or (1 - 1-dose 75+ series) 2019 BMI (ht and wt on same day) for age 18+ 01/28/2024 01/27/2023 Depression screening for age 12+ 01/28/2024 01/28/20 23 COVID-19 vaccine series ( season) 2024 06/30/2023, 06/30/2022, 06/04/2021, Additional history exists Influenza Vaccine (Season Ended) 2025 06/30/2022, 04/12/2019, 03/28/2018, Additional history exists Tetanus booster 04/03/2029 04/03/2019, 10/13/2007 Pneumococcal series for age 50+ Completed 5, 09/10/2009 Tdap Completed 04/03/2019, 10/13/2007 Medical Devices Implanted Type Area Pill Maker Device Identifier Shelf Expiration Date Model / Serial / Lot Stent Biliary [id number] Advanix Duodenal Bend Plst - [id number] Implanted:Qty: 1 on 12/03/2022 by Regan Heath MD at [facility] N/A: Common Bile Duct [facility] [id number] / / [id number] Insurance MEDICARE PART A HB ONLY [employer] CHOICE PPO MR Advance Directives * Full Code (Latest Code Status on File) Date Activated Date Inactivated Comments 02/01/2023 10:16 AM 02/01/2023 4:34 PM Question Answer Comments Code Status Discussion: Unable to Assess Preferences, Provider to review later * Full Code Date Activated Date Inactivated Comments 12/01/2022 7:58 AM 12/05/2022 5:21 PM Question Answer Comments Code Status Discussion: Reviewed Preferences * Full Code Date Activated Date Inactivated Comments 11/30/2022 10:48 PM 12/01/2022 7:58 AM Question Answer Comments Code Status Discussion: Unable to Assess Preferences, Provider to review later * Full Code Date Activated Date Inactivated Comments 11/27/2022 9:32 PM 11/30/2022 10:26 PM Question Answer Comments Code Status Discussion: Reviewed Preferences * Full Code Date Activated Date Inactivated Comments 09/21/2010 7:23 PM 09/22/2010 8:07 AM Care Teams Director Of Global Sales Relationship Specialty Start Date End Date Thiago Huffman MD PCP - General Family Practice 01/21/23
[2024-11-17 19:05] VITALS: BP 171/66; PULSE 78; RESP 16; TEMP 36.9; O2SAT 98; BMI 22.8
--- OUTSIDE RECORDS SUMMARY | 2024-11-17 19:05 | XMS_ITS | Continuity of Care Document ---
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 Primary Car e Provider Source Comments Patient records contain information from all sites at [facility]. For routine questions regarding patient records, call [phone] during business hours, M-F 8:00 AM - 5:00 PM Central Time. Record requests for emergency care only can be directed to [phone] at any time.[facility] Encounters Date Type Department Care Team Description 5 Orders Only Department of Orthopedic Surgery in [address] [address] Leonila Levy P.A.-C., P.A. Carpal Tunnel Syndrome Bilateral (Primary Dx) 5 Clinical Communication Department of Orthopedic Surgery in [place], [place] [address] [place] [phone] Leonila Levy P.A.-C., P.A. 5 1:15 PM CDT Comprehensive Visit Department of Orthopedic Surgery in [address] [address] Leonila Levy P.A.-C., P.A. Carpal Tunnel Syndrome Bilateral 5 Orders Only Department of Internal Medicine in [address] [address] Katharine Alcala APRN C.N.P., D.N.P. Carpal Tunnel Syndrome Bilateral (Primary Dx) 5 Orders Only Department of Internal Medicine in [address] [phone] Katharine Alcala APRN C.N.P., D.N.P. Hypertension Essential Primary 5 Clinical Communication Department of Internal Medicine in [address] [address] Katharine Alcala APRN C.N.P., D.N.P. 5 11:15 AM CDT Diagnostic Department of Neurology in [address] [address] Ayana Brooks D.O. Numbness Hand 5 Refill Department of [facility], [facility], in [address] [address] Elsy Winn APRN C.N.P., D.N.P. Med Refill 5 Clinical Communication Department of Internal Medicine in [address] [address] Katharine Alcala APRN C.N.PMey, D.N.P. Nurse Visit (BP check) 5 8:30 AM SUPERVISOR SPRING [employer] Nurse Only Department of Family Medicine, [facility], in [address] [address] Katharine Alcala APRN C.N.P., D.N.P. Jovanni Mast, L.P.N. Nurse Visit (BP check) 5 Results Follow-Up Department of Internal Medicine in [address] [address] Katharine Alcala APRN, C.N.P., D.N.P. Albumin, Random, Urine, EMG 5 Orders Only Department of Internal Medicine in [address] [address] Katharine Alcala APRN, C.N.P., D.N.P. Hypertension Essential Primary (Primary Dx) 5 8:23 AM SUPERVISOR SPRING UP - 5 11:59 PM SUPERVISOR SPRING UP Hospital Encounter Department of Laboratory Medicine in [address] [address] Katharine Alcala APRN, C.N.P., D.N.P. Hypertension Essential Primary Discharge Disposition: Home or Self Care 5 8:00 AM SUPERVISOR SPRING [employer] Office Visit Department of Internal Medicine in [address] [address] Katharine Alcala APRN, C.N.P., D.N.P. Numbness Hand (Primary Dx); Chronic Obstructive Pulmonary Disease (HCC); Hypertension Essential Primary 5 Refill Department of Family Medicine, [facility], in [address] [address] Elsy Winn APRN, C.N.P., D.N.P. Med Refill 5 Refill Department of Internal Medicine in [address] [place] [address] Katharine Alcala APRN C.N.P., D.N.P. Med Refill 4 11:15 AM SUPERVISOR SPRING UP Comprehensive Visit Department of Ophthalmology in [place] [address] Jordan Gaspar M.D. Injury Conjunctiva And Corneal Abrasion Without Foreign Body Left Eye Initial 4 2:30 PM SUPERVISOR SPRING UP Office Visit Department of [facility], [facility], in [address] [address] Israel Mar M.D., M.B.A. Injury Conjunctiva And Corneal Abrasion Without Foreign Body Left Eye Initial (Primary Dx) 4 Clinical Communication Department of [facility], [facility], in [address] [address] Thiago Huffman M.D. Blood Pressure Check 4 8:30 AM CDT Nurse Only Department of [facility], [facility], in [address] [address] Thiago Huffman M.D. Eisterhold, Kellee J, L.P.NMey Blood Pressure Check 4 Clinical Communication Department of [facility], [facility], in [address] [address] Thiago Huffman M.D. 4 8:45 AM CDT Nurse Only Department of [facility], [facility], in [address] [address] Elsy Winn APRN, C.N.P., D.N.P. Darren Simon, L.P.N. Blood Pressure Check 4 11:02 AM CDT - 4 11:59 PM CDT Hospital Encounter Department of Laboratory Medicine in [address] [address] Elsy Winn APRN C.N.PMey, D.N.P. Hypertension Essential Primary; Screening Examination Diabetes Mellitus; Hypercholesterolemia; Screening Test Laboratory Discharge Disposition: Home or Self Care 4 11:00 AM CDT Office Visit Department of Family Medicine, [facility], in [place], [place] [address] [place] [phone] Elsy Winn APRN C.N.P., D.N.P. Sissy Robles R.N. Annual Medicare Examination Return (Primary Dx) 4 10:30 AM CDT Office Visit Department of Family Medicine, [facility], in [place], [place] [address] [place] [address] Elsy Winn APRN, C.N.PMey, D.N.P. Hypercholesterolemia (Primary Dx); Chronic Obstructive Pulmonary Disease (HCC); Hypertension Essential Primary; Screening Examination Diabetes Mellitus; Screening Test Laboratory 4 Orders Only Department of Family Medicine, [facility], in [place], [place] [address] [place] [phone] Elsy Winn APRN C.N.PMey, D.N.P. 4 Refill Department of Family Medicine, [facility], in [place], [place] [address] [place] [phone] Thiago Huffman M.D. Med Refill 4 Refill Department of Family Medicine, [facility], in [place], [place] [address] [place] [phone] Thiago Huffman M.D. Med Refill 3 Refill Department of Family Medicine, [facility], in [place], [place] [address] [place] [address] Thiago Huffman M.D. Med Refill 3 Orders Only Department of Family Medicine, [facility], in [address] [address] Refugio Falk P.A.-C. 3 2:28 PM CDT - 3 11:59 PM CDT Hospital Encounter Department of Laboratory Medicine in [address] [address] Refugio Falk P.A.-C. Cholangitis Acute Discharge Disposition: Home or Self Care 3 2:15 PM CDT Office Visit Department of [facility], in [address] [address] Thiago Huffman M.D. Procedure And Treatment Not Carried Out Due To Patient Leaving Prior To Being Seen By Health Care Provider (Primary Dx) 3 2:00 PM CDT Office Visit Department of Family [facility], in [address] [address] Refugio Falk P.A.-C. Diarrhea (Primary Dx); Cholangitis Acute 3 10:37 AM CDT - 3 11:59 PM CDT Hospital Encounter Department of Laboratory Medicine in [address] [address] Ryan Villatoro M.B.B.SMey, Darlene Cholangitis Acute Discharge Disposition: Home or Self Care 3 10:00 AM CDT Office Visit Department of [facility], in [address] [address] Ryan Villatoro M.B.B.SMey, Darlene Cholangitis Acute (Primary Dx); Chronic Obstructive Pulmonary Disease (HCC) 3 Clinical Communication Department of Family [facility], in [place], [place] [address] [place] [phone] Tia Stephenson R.N. Post Hospital Follow-up (TCM call completed) 3 Orders Only [facility] Thiago Huffman M.D. 3 4:59 PM CDT - 3 11:59 PM CDT Emergency [facility] [address] [place] [phone] Pancreatitis Acute (HCC) (Primary Dx); Pain Chest; Abdominal Pain; Shortness Of Breath Discharge Disposition: Admitted as an Inpatient 3 Refill Department of Family Medicine, [facility], in [place], [place] [address] [place] [phone] Thiago Huffman M.D. Med Refill 3 Refill Department of Family Medicine, [facility], in [place], [place] [address] [place] [phone] Thiago Huffman M.D. Med Refill 2 2:40 PM CDT Office Visit Express [facility] in [address] [address] Jaime Fowler P.A.-C. Chronic Obstructive Pulmonary Disease Exacerbation (HCC) (Primary Dx) 2 Refill Department of Family Medicine, [facility], in [place], [place] [address] [place] [phone] Thiago Huffman M.D. Med Refill 2 Orders Only [facility] Thiago Schaeffer M.D. 2 3:15 PM CDT Nurse Only Department of Family Medicine, [facility], in [address] [address] Brennan Pepper APRN C.N.P. Liane Zepeda, L.P.N. Hypertension (Home device comparison) 2 9:30 AM CDT Office Visit Department of Family Medicine, [facility], in [place], [place] [address] [place] [phone] Brennan Pepper APRN, C.N.P. Hypertension Essential Primary (Primary Dx) 2 11:57 AM CDT - 2 4:27 PM CDT Emergency [facility] [address] [place] [phone] Hypertension Emergency (Primary Dx); Chronic Obstructive Pulmonary Disease (HCC) Discharge Disposition: Home or Self Care 2 10:30 AM CDT Office Visit Department of Family Medicine, [facility], [place], [place] [address] [place] [phone] Jina Avila APRN, C.N.P. Cough Unspecified Type (Primary Dx); Shortness Of Breath; Hypertensive Crisis Unspecified 2 3:15 PM CDT Office Visit Department of Family Medicine, [facility], in [place], [place] [address] [place] [phone] Rancho Winslow M.D. Chronic Obstructive Pulmonary Disease Exacerbation (HCC) (Primary Dx) 2 Refill Department of Family Medicine, [facility], in [place], [place] [address] [place] [phone] Linda Winslow M.D. Med Refill 2 Refill Department of Family Medicine, [facility], in [place], [place] [address] [place] [phone] Linda Winslow M.D. Med Refill 1 5:14 AM SUPERVISOR SPRING UP - 1 10:00 AM SUPERVISOR SPRING UP Emergency [facility] [address] [place] [phone] Other Chest Pain (Primary Dx); Pain Chest Discharge Disposition: Home or Self Care 1 9:40 AM SUPERVISOR SPRING UP Immunization Department of Family [facility], [address] [phone] Antonia Millard M.D. 1 Orders Only [facility] Anton[facility] Millard M.D. 1 4:23 PM CDT - 1 11:59 PM CDT Hospital Encounter Department of Radiology in [place], [place] [address] [place] [address] Zeinab Morris P.AMey-C. Pain Leg Left Discharge Disposition: Home or Self Care 1 Clinical Communication Department of Family [facility], [facility], [place], [place] [address], [place] [address] Thiago Huffman M.D. COVID Inquiry 1 4:00 PM CDT Office Visit Department of Family Medicine, [facility], in [place], [place] [address] [place] [address] Zeinab Morris P.AMey-CMey Pain Leg Left (Primary Dx) 1 1:00 PM CDT Immunization Department of Family [facility], [address] [address] Casa Roper M.D. Encounter For COVID-19 Vaccine Immunization 1 8:40 AM SUPERVISOR SPRING UP Immunization Department of Family [facility], [address] [address] Antonia Millard M.D. Encounter For COVID-19 Vaccine Immunization (Primary Dx) 1 Clinical Communication Department of Family Medicine, [facility], in [place], [place] [address] [place] [phone] Thiago Huffman M.D. COVID Inquiry 1 Refill Department of Family Medicine, [facility], in [place], [place] [address], [place] [address] Thiago Huffman M.D. Med Refill 1 Orders Only [facility] Antonia Millard M.D. [address] [facility], [facility], Sixth Floor [address] [place] [phone] Thiago Huffman M.D. Med Refill 0 Refill [facility], Sixth Floor [address] [place] [address] Thiago Huffman M.D. Med Refill 0 Orders Only [facility] [address] [place] [phone] Marah Lamb, MYLES, C.N.P. 0 Refill Department of Family Medicine, [facility], in [place], [place] [address], [place] [address] Thiago Huffman M.D. Med Refill 0 Orders Only [facility] Thiago Schaeffer M.D. 0 Clinical Communication Division of Pulmonary Medicine in [place], [place] [address] [place] [phone] Germain Posada M.D. 0 Documentation Division of Pulmonary Medicine in [place], [place] [address] [place] [address] Hector Blevins M.D. 0 Clinical Communication Division of Pulmonary Medicine in [place], [place] [address] [place] [address] Germain Posada M.D. 0 12:10 PM SUPERVISOR SPRING UP - 0 11:59 PM SUPERVISOR SPRING UP Hospital Encounter Department of Radiology, [place], [place] [address] [place] [address] Germain Posada M.D. Nodule Pulmonary Discharge Disposition: Home or Self Care 9 6:33 AM CDT - 9 11:59 PM CDT Hospital Encounter Department of Radiology, [place], [place] [address] [place] [address] Thiago Huffman M.D. Nodule Pulmonary Discharge Disposition: Home or Self Care 9 1:30 PM CDT Comprehensive Visit Division of Pulmonary Medicine in [place], [place] [address] [place] [address] Germain Posada M.D. Nodule Pulmonary Solitary (Primary Dx); Nodule Pulmonary 9 8:05 AM CDT - 9 11:59 PM CDT Hospital Encounter Department of Laboratory Medicine in [place], [place] [address] [place] [phone] Thiago Huffman M.D. Nodule Pulmonary Discharge Disposition: Home or Self Care 9 8:00 AM CDT - 9 8:04 AM CDT Hospital Encounter Department of Laboratory Medicine in [place], [place] [address] [place] [address] Thiago Huffman M.D. Nodule Pulmonary Discharge Disposition: Home or Self Care 9 7:32 PM CDT - 9 11:59 PM CDT Hospital Encounter Department of Radiology in [place], [place] [address] [place] [phone] Jaime Fowler P.A.-C. Infection Upper Respiratory Discharge Disposition: Home or Self Care 9 6:00 PM CDT Office Visit Urgent Care in [address] [address] Jaime Fowler P.A.-C. Infection Upper Respiratory (Primary Dx) 9 Clinical Communication Department of Family Medicine, [facility], in [address] [address] Thiago Huffman M.D. 9 7:15 AM CDT Internal E-Consult Division of Pulmonary Medicine in [place], [place] [address] [place] [phone] Sabrina Garnett M.D. Nodule Pulmonary 9 Orders Only Department of [facility] Medicine, [facility], in [address] [address] Thiago Huffman M.D. Nodule Pulmonary (Primary Dx) 9 2:24 PM CDT - 9 11:59 PM CDT Hospital Encounter Department of Radiology in [address] [address] Thiago Huffman M.D. Nodule Pulmonary Discharge Disposition: Home or Self Care 9 8:50 AM CDT - 9 11:59 PM CDT Hospital Encounter Department of Laboratory Medicine in [place], [place] [address] [place] [address] Thiago Huffman M.D. Mass Hepatic Discharge Disposition: Home or Self Care 9 Clinical Communication Department of Radiology in [place], [place] [address] [place] [address] Thiago Huffman M.D. 9 Clinical Communication Department of Family Medicine, [facility], in [place], [place] [address] [place] [address] Thiago Huffman M.D. 9 11:45 AM CDT Office Visit Department of Family Medicine, [facility], in [place], [place] [address] [place] [address] Thiago Huffman M.D. Nodule Pulmonary (Primary Dx); Abscess Hepatic Bacterial (HCC) 9 Clinical Communication Section of Infectious Diseases in [place], [place] [address] [place] [address] Britney Pineda R.N. [facility] End 9 2:05 PM CDT Office Visit Section of Infectious Diseases in [place], [place] [address] [place] [address] Liana Ramirez M.B.B.S. Long-Term Antibiotic Treatment (Primary Dx) 9 11:34 AM CDT - 9 11:59 PM CDT Hospital Encounter Department of Radiology, [facility], in [place], [place] [address] [place] [address] Raman Snider M.D. Mass Hepatic Discharge Disposition: Home or Self Care 9 8:00 AM CDT Infusion Department of Infusion Therapy in [place], [place] [address] [address] Marah Lamb APRN, C.N.P. Mass Hepatic (Primary Dx); Rigors 9 8:00 AM CDT Infusion Department of Infusion Therapy in [place], [place] [address] [address] Marah Lamb APRN, C.N.P. Rigors (Primary Dx); Mass Hepatic 9 9:05 AM CDT - 9 9:29 AM CDT Hospital Encounter [facility], Second Floor [address] [place] [address] Basilia Barahona D.O. Mass Hepatic (Primary Dx) Discharge Disposition: Home or Self Care 9 9:25 AM CDT - 9 9:51 AM CDT Hospital Encounter [facility], Second Floor [address] [place] [address] Basilia Barahona D.O. Mass Hepatic (Primary Dx) Discharge Disposition: Home or Self Care 9 Clinical Communication Section of Infectious Diseases in [place], [place] [address] [place] [address] Cosmo Dempsey R.N. OPAT Normal Labs 9 8:00 AM CDT Infusion Department of Infusion Therapy in [address] [address] Marah Lamb APRN, C.N.P. Long-Term Antibiotic Treatment (Primary Dx); Mass Hepatic; Rigors 9 8:00 AM CDT Infusion Department of Infusion Therapy in [place], [place] [address] [address] Marah Lamb APRN, C.N.P. Mass Hepatic (Primary Dx); Rigors 9 8:00 AM CDT Infusion Department of Infusion Therapy in [place], [place] [address] [address] Marah Lamb APRN, C.N.P. Mass Hepatic (Primary Dx); Rigors 9 Orders Only Section of Infectious Diseases in [place], [place] [address] [place] [address] Glo Quigley, Kindra.A.-Amisha 9 Clinical Communication Section of Infectious Diseases in [place], [place] [address] [place] [address] Lily Herrmann, Pharm.D., R.Ph., [facility] 9 8:00 AM CDT Infusion Department of Infusion Therapy in [place], [place] [address] [place] [phone] Marah Lamb APRN, C.N.P. Rigors (Primary Dx); Mass Hepatic 9 8:30 AM CDT Infusion Department of Infusion Therapy in [place], [place] [address] [place] [address] Marah Lamb APRN, C.N.P. Mass Hepatic (Primary Dx); Rigors 9 9:08 AM CDT - 9 9:34 AM CDT Hospital Encounter [facility], Second Floor [address] [place] [address] Christiano Bales M.D. Mass Hepatic (Primary Dx) Discharge Disposition: Home or Self Care 9 9:09 AM CDT - 9 9:28 AM CDT Hospital Encounter [facility], Second Floor [address] [place] [address] Christiano Bales M.D. Mass Hepatic (Primary Dx) Discharge Disposition: Home or Self Care 9 Orders Only Section of Infectious Diseases in [place], [place] [address] [place] [address] Raman Snider M.D. Mass Hepatic (Primary Dx) 9 Clinical Communication Section of Infectious Diseases in [place], [place] [address] [place] [address] Lily Herrmann, Pharm.D., R.Ph., [facility] 9 8:30 AM CDT Infusion Department of Infusion Therapy in [place], [place] [address] [address] Marah Lamb APRN, C.N.P. Long-Term Antibiotic Treatment (Primary Dx); Mass Hepatic; Rigors 9 9:30 AM CDT Lab Department of Infusion Therapy in [address] [phone] Kym Car MPAS, P.A.-C., M.S. Vianey Parkinson, R.[place]ano. [employer] Antibiotic Treatment 9 8:00 AM CDT Infusion Department of Infusion Therapy in [address] [phone] Marah Lamb APRN, C.N.P. Rigjusto (Primary Dx); Mass Hepatic 9 9:00 AM CDT Infusion Department of Infusion Therapy in [address] [phone] Marah Lamb APRN, C.N.P. Mass Hepatic (Primary Dx); Rigors 9 8:00 AM CDT Infusion Department of Infusion Therapy in [address] [phone] Marah Lamb APRN, C.N.P. Mass Hepatic (Primary Dx); Rigors 9 Clinical Communication Section of Infectious Diseases in [place], [place] [address] [place] [address] Anya Angela R.N. OPAT Intervention Note 9 10:30 AM CDT Infusion Department of Infusion Therapy in [address] [phone] Marah Lamb APRN, C.N.P. Rigors (Primary Dx); Mass Hepatic 9 8:56 AM CDT - 9 9:17 AM CDT Hospital Encounter [facility], Second Floor [address] [place] [address] Len Malone M.D. Mass Hepatic (Primary Dx) Discharge Disposition: Home or Self Care 9 9:00 AM CDT - 9 9:26 AM CDT Hospital Encounter [facility], Second Floor [address] [place] [address] Len Malone M.D. Mass Hepatic (Primary Dx) Discharge Disposition: Home or Self Care 9 8:00 AM CDT Infusion Department of Infusion Therapy in [address] [address] Marah Lamb APRN, C.N.P. [employer] Antibiotic Treatment (Primary Dx); Rigors; [facility] Hepatic 9 8:00 AM CDT Infusion Department of Infusion Therapy in [address] [place] [address] Marah Lamb APRN, C.N.P. Rigjusto (Primary Dx); [facility] Hepatic 9 8:30 AM CDT Infusion Department of Infusion Therapy in [address] [address] Marah Lamb APRN, C.N.P. Mass Hepatic (Primary Dx); Rigors 9 8:00 AM CDT Infusion Department of Infusion Therapy in [address] [place] [address] Marah Lamb APRN, C.N.P. Rigjusto (Primary Dx); [facility] Hepatic 9 8:30 AM CDT Infusion Department of Infusion Therapy in [address] [address] AdonisMarah burnham APRN, C.NJenny Mass Hepatic (Primary Dx); Rigors 9 9:01 AM CDT - 9 9:24 AM CDT Hospital Encounter [facility], Second Floor [address] [place] [address] Fox Luciano M.D. Mass Hepatic (Primary Dx) Discharge Disposition: Home or Self Care 9 9:07 AM CDT - 9 9:33 AM CDT Hospital Encounter [facility], Second Floor [address] [place] [address] Fox Luciano M.D. Mass Hepatic (Primary Dx) Discharge Disposition: Home or Self Care 9 Orders Only Section of Infectious Diseases in [place], [place] [address] [place] [address] Rhoda Gill, P.A.Elsa 9 Clinical Communication Section of Infectious Diseases in [place], [place] [address] [place] [address] Raman Snider M.D. ITC order 9 Clinical Communication Section of Infectious Diseases in [place], [place] [address] [place] [phone] Britney Pineda R.N. OPAT Normal Labs 9 8:00 AM CDT Infusion Department of Infusion Therapy in [place], [place] [address] [place] [address] Marah Lamb APRN CMeyNMeyPMey Mass Hepatic (Primary Dx); [employer] Antibiotic Treatment; Rigors 9 9:03 AM CDT - 9 9:36 AM CDT Hospital Encounter [facility], Second Floor [address] [place] [address] Christiano Bales M.D. Mass Hepatic (Primary Dx) Discharge Disposition: Home or Self Care 9 9:49 AM CDT - 9 11:59 PM CDT Hospital Encounter Department of Radiology in [address] [address] Raman Snider M.D. Mass Hepatic; Pain Cervical Discharge Disposition: Home or Self Care 9 8:00 AM CDT Infusion Department of Infusion Therapy in [address] [address] Marah Lamb APRN, C.N.P. Mass Hepatic (Primary Dx); Rigors 9 3:10 PM CDT Lab Department of Infusion Therapy in [place], [place] [address] [place] [address] Raman Snider M.D. Mass Hepatic (Primary Dx); Pain Cervical; Rigors 9 Clinical Communication Department of Infusion Therapy in [address] [address] Irene Adams, R.NMey 9 Clinical Communication Department of Infusion Therapy in [address] [address] Irene Adams, R.N. 9 1:50 PM CDT Office Visit Section of Infectious Diseases in [place], [place] [address] [place] [phone] Raman Snider M.D. Long-Term Antibiotic Treatment (Primary Dx); Mass Hepatic; Pain Cervical 9 8:00 AM CDT Infusion Department of Infusion Therapy in [address] [address] Marah Lamb APRN, C.N.P. Mass Hepatic (Primary Dx); Rigors 9 12:53 PM CDT - 9 11:59 PM CDT Hospital Encounter Department of Radiology, [facility], in [place], [place] [address] [place] [address] Carlyle Kessler M.D. Mass Hepatic Discharge Disposition: Home or Self Care 9 10:30 AM CDT Infusion Department of Infusion Therapy in [place], [place] [address] [place] [address] Marah Lamb APRN C.N.PMey Mass Hepatic (Primary Dx); Rigors 9 8:47 AM CDT - 9 8:54 AM CDT Hospital Encounter [facility], Second Floor [address] [place] [address] Fox Luciano M.D. Mass Hepatic (Primary Dx) Discharge Disposition: Home or Self Care 9 9:16 AM CDT - 9 10:13 AM CDT Hospital Encounter [facility], Second Floor [address] [place] [address] Fox Luciano M.D. Mass Hepatic (Primary Dx) Discharge Disposition: Home or Self Care 9 8:00 AM CDT Infusion Department of Infusion Therapy in [place], [place] [address] [place] [address] Marah Lamb APRN, C.N.PMey Mass Hepatic (Primary Dx); Rigors 9 10:30 AM CDT - 9 11:59 AM CDT Hospital Encounter Department of Radiology in [place], [place] [address] [place] [address] Sade Vera APRN, C.N.P. Jayshree Blanca M.D. Carroll, Evelyn F, M.D. Mass Hepatic Discharge Disposition: Home or Self Care 9 8:00 AM CDT Infusion Department of Infusion Therapy in [place], [place] [address] [place] [phone] Marah Lamb APRN, C.N.PMey Mass Hepatic (Primary Dx); Rigors 9 Clinical Communication Section of Infectious Diseases in [place], [place] [address] [place] [address] Anya Angela R.N. OPAT Normal Labs 9 9:36 AM CDT - 9 11:59 PM CDT Hospital Encounter Department of Laboratory Medicine in [place], [place] [address] [place] [phone] Brennan Pepper APRN C.N.P. Pain Neck Discharge Disposition: Home or Self Care 9 Orders Only Department of [facility], [facility], in [address] [address] Brennan Pepper APRN, C.N.P. Pain Neck (Primary Dx) 9 9:00 AM CDT Nurse Only Department of [facility], in [address] [address] Gayatri Summers Nurse Visit 9 8:00 AM CDT Infusion Department of Infusion Therapy in [address] [address] Marah Lamb APRN C.N.P. Mass Hepatic (Primary Dx); Rigors 9 8:00 AM CDT Infusion Department of Infusion Therapy in [place], [place] [address] [place] [phone] Marah Lamb APRN C.N.P. Mass Hepatic (Primary Dx); Rigors 9 3:30 PM CDT Office Visit Department of Family Medicine, [facility], in [place], [place] [address] [place] [address] Brennan Pepper APRN C.N.PMey Pain Neck (Primary Dx); Pain Wrist Left 9 8:30 AM CDT Infusion Department of Infusion Therapy in [place], [place] [address], [place] [address] Marah Lmab APRN, C.N.PMey Mass Hepatic (Primary Dx); Rigors 9 9:19 AM CDT - 9 9:40 AM CDT Hospital Encounter [facility], Second Floor [address] [place] [address] Basilia Barahona D.O. Mass Hepatic (Primary Dx) Discharge Disposition: Home or Self Care 9 6:29 PM CDT - 9 5:45 PM CDT Emergency [facility] [address] [place] [address] Strain Of Muscle Fascia And Tendon At Neck Level Sequela (Primary Dx) Discharge Disposition: Home or Self Care 9 9:16 AM CDT - 9 9:31 AM CDT Hospital Encounter [facility], Second Floor [address] [place] [address] Basilia Barahona D.O. Mass Hepatic (Primary Dx) Discharge Disposition: Home or Self Care 9 8:00 AM CDT Infusion Department of Infusion Therapy in [place], [place] [address] [address] Marah Lamb APRN, C.N.P. Mass Hepatic (Primary Dx); Rigors 9 Orders Only Department of Radiology, [facility], in [place], [place] [address] [place] [address] Sade Vera APRN, C.N.PMey Mass Hepatic (Primary Dx) 9 8:47 AM CDT - 9 10:25 AM CDT Hospital Encounter Department of Laboratory Medicine in [address] [address] Thiago Huffman M.D. Diarrhea Discharge Disposition: Home or Self Care 9 Orders Only Department of Family Medicine, [facility], in [place], [place] [address] [place] [phone] Thiago Huffman M.D. Diarrhea (Primary Dx) 9 10:26 AM CDT - 9 2:05 PM CDT Hospital Encounter Department of Radiology in [place], [place] [address] [place] [phone] Leann Smith APRN, C.N.P., M.S.N. Roel Kellogg M.D. Mass Hepatic Discharge Disposition: Home or Self Care 9 8:30 AM CDT Infusion Department of Infusion Therapy in [place], [place] [address] [place] [phone] Marah Lamb APRN, C.N.PMey Mass Hepatic (Primary Dx); Rigors 9 Clinical Communication Section of Infectious Diseases in [place], [place] [address] [place] [address] Cosmo Dempsey R.N. OPAT Normal Labs 9 9:00 AM CDT Infusion Department of Infusion Therapy in [place], [place] [address] [place] [phone] Marah Lamb APRN C.N.PMey Mass Hepatic (Primary Dx); Rigors 9 8:00 AM CDT Infusion Department of Infusion Therapy in [place], [place] [address] [place] [phone] Marah Lamb APRN C.N.P. Mass Hepatic (Primary Dx); Rigors 9 8:30 AM CDT Infusion Department of Infusion Therapy in [place], [place] [address] [address] Marah Lamb APRN, C.N.P. Mass Hepatic (Primary Dx); Rigors 9 9:21 AM CDT - 9 9:40 AM CDT Hospital Encounter [facility], Second Floor [address] [place] [address] Christiano Bales M.D. Mass Hepatic (Primary Dx) Discharge Disposition: Home or Self Care 9 9:13 AM CDT - 9 9:29 AM CDT Hospital Encounter [facility], Second Floor [address] [place] [address] Christiano Bales M.D. Mass Hepatic (Primary Dx) Discharge Disposition: Home or Self Care 9 8:00 AM CDT Infusion Department of Infusion Therapy in [place], [place] [address] [address] Marah Lamb APRN, C.N.P. Mass Hepatic (Primary Dx); Rigors 9 8:00 AM CDT Infusion Department of Infusion Therapy in [place], [place] [address] [address] Marah Lamb APRN, C.N.P. Mass Hepatic (Primary Dx); Rigors 9 Clinical Communication Section of Infectious Diseases in [place], [place] [address] [place] [address] Cosmo Dempsey R.N. OPAT Intervention 9 8:00 AM CDT Infusion Department of Infusion Therapy in [place], [place] [address] [address] Marah Lamb APRN, C.NMeyPMey Mass Hepatic (Primary Dx); Rigors 9 Orders Only Department of Radiology, [facility], in [place], [place] [address] [place] [address] Leann Smith APRN, C.N.PMey, M.S.N. Mass Hepatic (Primary Dx) 9 Orders Only Department of Infusion Therapy in [place], [place] [address] [address] Lena Oleary R.N. Mass Hepatic (Primary Dx) 9 11:07 AM CDT - 9 11:59 PM CDT Hospital Encounter Department of Radiology in [place], [place] [address] [place] [address] Marah Lamb APRN, C.N.P. Jayshree Blanca M.D. Frimpong, Richard G, M.D. Mass Hepatic Discharge Disposition: Home or Self Care 9 8:00 AM CDT Infusion Department of Infusion Therapy in [place], [place] [address] [place] [phone] Marah Lamb APRN C.N.PMey Mass Hepatic (Primary Dx); Rigors 9 8:00 AM CDT Infusion Department of Infusion Therapy in [place], [place] [address] [address] Marah Lamb APRN C.N.P. Mass Hepatic (Primary Dx); Rigors 9 10:45 AM CDT Office Visit Department of Family Medicine, [facility], in [place], [place] [address] [place] [address] Thiago Huffman M.D. Mass Hepatic (Primary Dx); Nodule Pulmonary Solitary 9 9:20 AM CDT - 9 9:42 AM CDT Hospital Encounter [facility], Second Floor [address] [place] [address] eLn Malone M.D. Mass Hepatic (Primary Dx) Discharge Disposition: Home or Self Care 9 9:07 AM CDT - 9 9:33 AM CDT Hospital Encounter [facility], Second Floor [address] [place] [address] Len Malone M.D. Mass Hepatic (Primary Dx) Discharge Disposition: Home or Self Care 9 8:00 AM CDT Infusion Department of Infusion Therapy in [address] [address] Marah Lamb APRN, C.N.P. Mass Hepatic (Primary Dx); Rigors 9 Clinical Communication Department of Internal Medicine in [place], [place] [address] [place] [phone] Janeth Rollins R.N. Post Hospital Follow-up (TCM Complete) 9 Clinical Communication [facility] [address] [address] Marah Lamb APRN, C.N.P. Pre-visit Testing Orders 9 Clinical Communication [facility] [address] [address] Carlyle Kessler M.D. 9 12:00 PM CDT Infusion Department of Infusion Therapy in [place], [place] [address] [place] [address] Marah Lamb APRN, C.N.P. Mass Hepatic (Primary Dx); Rigors 9 Clinical Communication Department of Family Medicine, [facility], in [place], [place] [address] [place] [phone] Thiago Huffman M.D. Medical Information 9 Episode Changes [facility] [address] [place] [phone] Elsa Lang 9 Clinical Communication [facility] [address] [place] [phone] Marah Lamb APRN, C.N.P. 9 5:54 PM CDT - 9 6:04 PM CDT Hospital Encounter [facility], Sixth Floor [address] [place] [phone] Pedro Treadwell M.D. Lizette Garcia M.D., M.S. Cece Mcgowan M.D. Marcia Schaefer M.D., Ph.D. Sushant Christian D.O. Abdominal Pain (Primary Dx); Hypertension Essential Primary Discharge Disposition: Home or Self Care 9 Clinical Communication Department of Family Medicine, [facility], in [place], [place] [address] [address] Thiago Huffman M.D. 9 12:55 PM CDT Ancillary Procedure Department of Gastroenterology 9 1:46 PM CDT Anesthesia Event Division of Gastroenterology in [address] [address] Jon Lundberg APRN, CRNA 9 1:21 PM CDT - 9 11:59 PM CDT Hospital Encounter Department of Radiology, [facility] in [place], [place] [address] [place] [address] Marah Lamb APRN, C.N.P. Discharge Disposition: Home or Self Care 9 2:23 PM CDT - 9 5:53 PM CDT Hospital Encounter [facility] Discharge Disposition: Home or Self Care 9 11:16 AM CDT - 9 2:22 PM CDT Hospital Encounter Department of Radiology in [address] [address] Lucila Jimenez P.A.-C., P.A. Pain Right Upper Quadrant Discharge Disposition: Home or Self Care 9 9:41 AM CDT - 9 11:15 AM CDT Hospital Encounter Department of Radiology in [place], [place] [address] [place] [phone] Lucila Jimenez P.A.-C., P.A. Night Sweats Discharge Disposition: Home or Self Care 9 9:15 AM CDT Office Visit Urgent Care in [address] [address] Lucila Jimenez P.A.-C., P.A. Night Sweats (Primary Dx); Pain Right Upper Quadrant 9 Refill Department of Family Medicine, [facility], in [address] [address] Thiago Huffman M.D. Med Refill 8 4:30 PM CDT Office Visit Department of Family Medicine, [facility], in [place], [place] [address] [place] [phone] Thiago Huffman M.D. Hypertension Essential Primary (Primary Dx); Chronic Obstructive Pulmonary Disease (HCC) 8 6:26 PM CDT - 8 5:45 PM CDT Emergency [facility] [address] [place] [phone] Shortness Of Breath (Primary Dx) Discharge Disposition: Home or Self Care 8 5:45 PM CDT Office Visit Urgent Care in [place], [place] [address] [place] [phone] Jaime Fowler P.A.-C. Dyspnea On Exertion (Primary Dx) 8 11:22 AM CDT - 8 11:59 PM CDT Hospital Encounter Department of Radiology in [address] [address] Thiago Huffman M.D. Cough; Chronic Obstructive Pulmonary Disease (HCC) Discharge Disposition: Home or Self Care 8 11:30 AM CDT Office Visit Department of Family Medicine, [facility], in [address] [address] Thiago Huffman M.D. Cough (Primary Dx); Chronic Obstructive Pulmonary Disease (HCC) 8 3:30 PM CDT Office Visit Urgent Care in [address] [address] Gabrielle Caceres P.A.-C. Bronchitis Acute (Primary Dx) 8 10:15 AM CDT Office Visit Department of Family Medicine, [facility], in [address] [address] Thiago Huffman M.D. Hypertension Essential Primary (Primary Dx); Chronic Obstructive Pulmonary Disease (HCC); Hypercholesterolemia 8 Refill Department of Family Medicine, [facility], in [address] [address] Thiago Huffman M.D. Med Refill 8 8:33 AM [employer] - 8 11:59 PM [employer] Hospital Encounter Department of Laboratory Medicine in [address] [address] Michael Schmitz, MYLES, C.N.P. Department Of Transportation Examination Department Of Weekend-a-gogo Discharge Disposition: Home or Self Care 8 Abstract Department of Internal Medicine in [place], [place] [address] [place] [phone] Provider, Historical 8 9:15 AM [employer] Office Visit Department of Internal Medicine in [place], [place] [address] [place] [phone] Michael Schmitz, MYLES, C.N.P. Department Of Transportation Examination Department Of Motor Vehicles (Primary Dx) 8 Refill Department of Family Medicine, [facility], in [place], [place] [address] [place] [phone] Thiago Huffman M.D. Med Refill 7 10:39 AM CDT - 7 11:59 PM CDT Hospital Encounter [facility] Thiago Huffman M.D. 7 Orders Only Department of Family Medicine, [facility], in [place], [place] [address] [place] [phone] Thiago Huffman M.D. Hypertension NOS; Hypercholesterolemia Familial 7 2:58 PM CDT - 7 11:59 PM CDT Hospital Encounter [facility] José Antonio Sams M.D. 7 11:38 AM CDT - 7 11:59 PM CDT Hospital Encounter [facility] Lupillo Worrell M.D. 7 8:14 AM CDT - 7 11:59 PM CDT Hospital Encounter [facility] Koby Baumann, P.A.-CMey 7 5:39 AM CDT - 7 11:59 PM CDT Hospital Encounter HX NO MAPPING Koby Baumann P.A.-C. 7 8:57 AM CDT - 7 11:59 PM CDT Hospital Encounter [facility] Thiago Huffman M.D. 7 9:42 AM CDT - 7 11:59 PM CDT Hospital Encounter [facility] Thiago Huffman M.D. 7 9:22 AM CDT - 7 11:59 PM CDT Hospital Encounter [facility] Thiago Huffman M.D. 7 2:30 PM [employer] - 7 11:59 PM [employer] Hospital Encounter [facility] Sabrina Guzman M.D. 7 1:52 PM [employer] - 7 11:59 PM [employer] Hospital Encounter [facility] Cade Roper M.D. 7 10:03 AM [employer] - 7 11:59 PM [employer] Hospital Encounter [facility] Thiago Huffman M.D. 7 7:59 AM [employer] - 7 11:59 PM [employer] Hospital Encounter [facility] Thiago Huffman M.D. 6 1:35 PM CDT - 6 11:59 PM CDT Hospital Encounter [facility] José Antonio Sams M.D. 6 8:59 AM CDT - 6 11:59 PM CDT Hospital Encounter [facility] Thiago Huffman M.D. 6 9:55 AM CDT - 6 11:59 PM CDT Hospital Encounter [facility] Thiago Huffman M.D. 5 7:52 AM CDT - 5 11:59 PM CDT Hospital Encounter [facility] Navi Cruz M.D. 5 8:42 AM CDT - 5 11:59 PM CDT Hospital Encounter [facility] Navi Cruz M.D. 5 1:45 PM CDT - 5 11:59 PM CDT Hospital Encounter [facility] Navi Cruz M.D. 5 12:42 PM CDT - 5 11:59 PM CDT Hospital Encounter [facility] Sowmya Huang, [facility], P.A.-C. 4 4:29 PM CDT - 4 11:59 PM CDT Hospital Encounter [facility] Ryan Woodson M.D. 4 12:58 PM CDT - 4 11:59 PM CDT Hospital Encounter [facility] Cade Roper M.D. 4 9:09 AM CDT - 4 11:59 PM CDT Hospital Encounter [facility] Navi Cruz M.D. 4 9:25 AM CDT - 4 11:59 PM CDT Hospital Encounter [facility] Thiago Huffman M.D. 3 12:09 PM CDT - 3 11:59 PM CDT Hospital Encounter [facility] Cade Roper M.D. 3 10:54 AM CDT - 3 11:59 PM CDT Hospital Encounter [facility] Khushi Mobley, C.N.P. 3 2:16 PM CDT - 3 11:59 PM CDT Hospital Encounter [facility] Tono Medina M.D. 2 8:00 AM CDT - 2 11:59 PM CDT Hospital Encounter [facility] Navi Cruz M.D. 2 8:03 AM CDT - 2 11:59 PM CDT Hospital Encounter [facility] Navi Cruz M.D. 2 7:31 AM CDT - 2 11:59 PM CDT Hospital Encounter [facility] aNvi Cruz M.D. 2 10:57 AM CDT - 2 11:59 PM CDT Hospital Encounter [facility] Navi Cruz M.D. 2 1:39 PM CDT - 2 11:59 PM CDT Hospital Encounter [facility] Navi Cruz M.D. 1 3:36 PM [employer] - 1 11:59 PM [employer] Hospital Encounter [facility] Navi Cruz M.D. 1 2:05 PM [employer] - 1 11:59 PM [employer] Hospital Encounter [facility] Navi Cruz M.D. 1 8:42 AM [employer] - 1 11:59 PM [employer] Hospital Encounter HX NO MAPPING Thanh Card M.D. 1 9:35 AM [employer] - 1 11:59 PM [employer] Hospital Encounter [facility] Navi Cruz M.D. 1 9:23 AM [employer] - 1 11:59 PM [employer] Hospital Encounter [facility] Navi Cruz M.D. 1 9:23 AM [employer] - 1 11:59 PM [employer] Hospital Encounter [facility] Navi Cruz M.D. 1 7:51 AM [employer] - 1 11:59 PM [employer] Hospital Encounter [facility] Navi Cruz M.D. 0 Hospital Encounter [facility] Navi Cruz M.D. 0 Hospital Encounter [facility] Thiago Huffman M.D. 0 Hospital Encounter [facility] Provider, Historical 0 Hospital Encounter [facility] Provider, Historical 0 Hospital Encounter [facility] ElliottepifaniovickTaya APRN, C.N.P. 0 Hospital Encounter [facility] Provider, Historical 9 Hospital Encounter [facility] Norberto Multani M.D. 9 Hospital Encounter [facility] Navi Cruz M.D. 8 Hospital Encounter [facility] Navi Cruz M.D. 8 Hospital Encounter [facility] Navi Cruz M.D. 8 Hospital Encounter [facility] Navi Cruz M.D. 8 Hospital Encounter [facility] Navi Cruz M.D. 8 Hospital Encounter [facility] Provider, Historical 8 Hospital Encounter [facility] José Antonio Sams M.D. 8 Hospital Encounter [facility] Ramos Glasgow M.D. 8 Hospital Encounter [facility] Provider, Historical 8 Hospital Encounter [facility] Provider, Historical 8 Hospital Encounter [facility] Tia Hurst M.D. 8 Hospital Encounter HX NO MAPPING Andrés Betancur M.D. 6 Hospital Encounter [facility] Ryan Kennedy M.D. 5 Hospital Encounter [facility] Sheela Chaudhari M.D. 5 Hospital Encounter [facility] Ryan Kennedy M.D. 5 Hospital Encounter [facility] Ryan Kennedy M.D. 5 Hospital Encounter [facility] Sheela Chaudhari M.D. 5 Hospital Encounter [facility] Khoi Oh M.D. 5 Hospital Encounter [facility] Sheela Chaudhari M.D. 5 Hospital Encounter [facility] Ryan Kennedy M.D. 5 Hospital Encounter [facility] Provider, Historical 5 Hospital Encounter [facility] Norberto Multani M.D. 2 Hospital Encounter [facility] Kristian Hartmann M.D. 1 Hospital Encounter [facility] Provider, Historical 1 Hospital Encounter [facility] FAMILYRyan Soares M.D. 1 Hospital Encounter [facility] FAMILYRyan Soares M.D. Allergies No known active allergies Medications aspirin [address] tablet Take 1 tablet by mouth daily. 10/06/19 16 Active albuterol 90 mcg/actuation inhaler Inhale 2 puffs every 4 (four) hours as needed for wheezing. 6.7 g 1 10/09/19 22 Active atorvastatin (Lipitor) 10 mg tablet Take 1 tablet (10 mg total) by mouth at bedtime. 90 tablet 3 08/07/19 25 Active metoprolol succinate (Toprol XL) 25 mg 24 hr tablet Take 0.5 tablets (12.5 mg total) by mouth daily. Do not crush or chew. 45 tablet 3 09/05/19 25 Active albuterol 2.5 mg /3 mL nebulizer solution Inhale 3 mL (2.5 mg total) by nebulization every 4 (four) hours as needed for wheezing. 75 mL 3 09/05/19 25 Active gabapentin (Neurontin) 100 mg capsuleIndicati ons:Numbness Hand Take 1 capsule (100 mg total) by mouth 3 (three) times a day. 60 capsule 1 09/05/19 25 Active lisinopriL 5 mg tabletIndicatio ns:Hypertension Essential Primary Take 1 tablet (5 mg total) by mouth daily. 30 tablet 5 09/05/19 25 Active amLODIPine (Norvasc) 5 mg tabletIndicatio ns:Hypertension Essential Primary Take 1 tablet (5 mg total) by mouth daily. 90 tablet 3 10/10/19 25 Active omega-3 fatty acids 500 mg capsule Take 500 mg by mouth daily. 09/16/19 11 025 Discontin ued(Thera py completed ) ofloxacin (Ocuflox) 0.3 % ophthalmic solution Administer 1 drop into the left eye 4 (four) times a day. 10 mL 06/04/20 24 025 Discontin ued(Thera py completed ) methylPREDNISol one (MedroL DosePak) 4 mg tabletIndicatio ns:Chronic Obstructive Pulmonary Disease (HCC) Follow package directions. 21 tablet 09/05/19 25 025 Discontin ued(Thera py completed ) Active Problems Problem Noted Date Diagnosed Date Diverticulosis 12/16/2018 Hypercholesterolemia 11/21/2017 Hypertension Essential Primary 08/04/2009 Chronic Obstructive Pulmonary Disease 08/04/2009 Resolved Problems Problem Noted Date Diagnosed Date Resolved Date History Of Falling 12/10/2022 Other Cholangitis 11/30/2022 12/10/2022 10/27/2023 Other Specified Diseases Of Biliary Tract 11/30/2022 12/10/2022 10/27/2023 Acute Pancreatitis Without N ecrosis Or Infection Unspecified 11/28/2022 12/10/2022 10/27/2023 Mass Hepatic 12/16/2018 10/27/2023 Rigors 12/16/2018 10/27/2023 Dilated Common Bile Duct 12/16/201805/2024 Elevated Bilirubin 12/16/2018 Nodule Pulmonary Solitary 12/16/2018 Hepatomegaly 12/16/2018 12/10/2022 10/27/2023 Jaundice 12/16/2018 12/10/2022 10/27/2023 Other Specified Diseases Of Biliary Tract 12/16/2018 12/10/2022 10/27/2023 Abdominal Pain 12/15/2018 10/27/2023 Immunizations Immunization Administration Dates Next Due HZV (ZOSTAVAX) 12/09/2011 Influenza TIV (IM) 07/30/2024,06/01/2010 Influenza high dose QV(65 ye ars or older) (PF) 06/04/2021 Influenza, Quadrivalent, Adj uvanted, Preservative Free 06/30/2023 Influenza, Unspecified 04/26/2017,2015,04/15/2015,2012 PCV13 01/31/2015 PPSV23 09/10/2009 RZV (SHINGRIX) 10/28/2023,06/30/2023 SARS-COV-2 (COVID-19) - PFIZ ER (Discontinued)(12 years or older) 06/04/2021,10/03/2020,09/10/2020 Tdap 04/03/2019,10/13/2007 influenza trivalent high dos e (HD)(PF) 04/12/2019,03/28/2018 influenza vaccine quad (FLUZONE/FLUARIX) (6 months and older)(PF) 06/30/2022 Social History Smoking Status as of 11/17/2024 Tobacco Use Types Packs/Day Years Used Date Smoking Tobacco: Never Assessed [facility] Utilities Answer Date Recorded In the past 12 months has Dash Hudson, [employer], or water [employer] threatened to shut off services in your [...] week 10/22/2021 How often do you attend [facility] or [facility] services? Never 10/22/2021 Do you belong to any clubs o r organizations such as congregation groups, unions, fraternal or athletic groups, or [...] Answer Date Recorded PHQ-2 Score 0 09/05/2024 [facility] - Occupational Stress Questionnaire Answer Date Recorded [...] your living situation today? I have [facility] place to live 10/27/2023 Education Answer Date Recorded What is the highest level of school you have completed or the highest degree you have received? 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 Sex Male 10:26 AM [employer] Gender Identity Not on file Sexual Orientation Not on file Last Filed Vital Signs Vital Sign Reading Time Taken Comments Blood Pressure 99/55 09/12/2024 8:48 AM [employer] Pulse 55 09/12/2024 8:48 AM [employer] Temperature 36.1 C (97 F) 09/05/2024 7:59 AM [employer] Respiratory Rate 16 09/05/2024 7:59 AM [employer] Oxygen Saturation 96% 09/05/2024 7:59 AM [employer] Inhaled Oxygen Concentration - - Weight 76.8 kg (169 lb 5 oz) 09/05/2024 7:59 AM [employer] Height 168 cm (5' 6.14) 09/05/2024 7:59 AM [employer] Body Mass Index 27.21 09/05/2024 7:59 AM [employer] Plan of Treatment Not on file Procedures Procedure Name Priority Date/Time Associated Diagnosis Comments EMG Routine 10/09/2024 10:50 AM CDT Numbness Hand BASIC METABOLIC PANEL, S/P Routine 09/05/2024 8:32 AM [employer] Hypertension Essential Primary ALBUMIN, RANDOM, U Routine 09/05/2024 8:30 AM [employer] Hypertension Essential Primary GLUCOSE, FASTING, S/P Routine 10/27/2023 11:38 AM CDT Screening Examination Diabetes Mellitus LIPID PANEL, S Routine 10/27/2023 11:37 AM CDT Hypercholesterolemi a COMPREHENSIVE METABOLIC PANEL, S/P Routine 10/27/2023 11:37 AM CDT Hypertension Essential Primary HCV AB SCRN W/REFLEX TO HCV PCR, S Routine 10/27/2023 11:37 AM CDT Screening Test Laboratory CBC WITH DIFFERENTIAL, B Routine 12/17/2022 2:36 PM CDT Cholangitis Acute COMPREHENSIVE METABOLIC PANEL, S/P Routine 12/17/2022 2:36 PM CDT Cholangitis Acute CBC WITH DIFFERENTIAL, B Routine 12/10/2022 10:50 AM CDT Cholangitis Acute COMPREHENSIVE METABOLIC PANEL, S/P Routine 12/10/2022 10:50 AM CDT Cholangitis Acute US ABDOMEN COMPLETE RAD - Semiurgent (Fast; most ED patients; some inpatients) 11/30/2022 11:09 AM CDT DX CHEST PORTABLE 1 VIEW RAD - Semiurgent (Fast; most ED patients; some inpatients) 11/29/2022 10:11 PM CDT Shortness Of Breath CT ABDOMEN PELVIS WITHOUT IV CONTRAST RAD - Semiurgent (Fast; most ED patients; some inpatients) 11/27/2022 7:20 PM CDT Abdominal Pain DX CHEST AP OR PA AND LATERAL 2 VIEWS RAD - Routine (most inpatients and all outpatients) 11/27/2022 5:33 PM CDT Pain Chest SARS CORONAVIRUS 2, PCR STAT 05/01/2022 3:[address] HEAD WITHOUT IV CONTRAST RAD - Semiurgent (Fast; most ED patients; some inpatients) 10/14/2021 1:16 PM CDT DX CHEST AP OR PA AND LATERAL 2 VIEWS RAD - Semiurgent (Fast; most ED patients; some inpatients) 10/14/2021 1:[address] CHEST ANGIOGRAM AND PULMONARY ARTERIES WITH IV CONTRAST RAD - Semiurgent (Fast; most ED patients; some inpatients) 06/30/2021 7:11 AM [employer] Pain Chest DX PELVIS 1-2 VIEWS RAD - Routine (most inpatients and all outpatients) 11/24/2020 4:43 PM CDT Pain Leg Left DX FEMUR LEFT 2 VIEWS RAD - Routine (most inpatients and all outpatients) 11/24/2020 4:43 PM CDT Pain Leg Left CT CHEST WITHOUT IV CONTRAST RAD - Routine (most inpatients and all outpatients) 08/06/2019 12:35 PM [employer] Nodule Pulmonary PET CT SKULL TO THIGH RAD - Routine (most inpatients and all outpatients) 05/08/2019 8:31 AM CDT Nodule Pulmonary ECG Routine 04/26/2019 8:36 AM CDT Nodule Pulmonary CBC WITH DIFFERENTIAL, B Routine 04/26/2019 8:10 AM CDT Nodule Pulmonary DX CHEST AP OR PA AND LATERAL 2 VIEWS RAD - Routine (most inpatients and all outpatients) 04/24/2019 8:02 PM CDT Infection Upper Respiratory CBC WITH DIFFERENTIAL, B STAT 04/24/2019 7:47 PM CDT Infection Upper Respiratory CT CHEST WITHOUT IV CONTRAST RAD - Routine (most inpatients and all outpatients) 04/10/2019 2:52 PM CDT Nodule Pulmonary CREATININE WITH EGFR, S/P Routine 04/09/2019 9:03 AM CDT Mass Hepatic CT ABDOMEN PELVIS WITH IV CONTRAST RAD - Routine (most inpatients and all outpatients) 02/13/2019 12:58 PM CDT Mass Hepatic CREATININE WITH EGFR, S/P Routine 02/09/2019 8:08 AM CDT [employer] Antibiotic Treatment CBC WITH DIFFERENTIAL, B Routine 02/09/2019 8:08 AM CDT [employer] Antibiotic Treatment ALANINE AMINOTRANSFERASE (ALT), S/P Routine 02/09/2019 8:08 AM CDT Long-Term Antibiotic Treatment ALKALINE PHOSPHATASE, S/P Routine 02/09/2019 8:08 AM CDT Long-Term Antibiotic Treatment CREATININE WITH EGFR, S/P Routine 02/02/2019 9:04 AM CDT Long-Term Antibiotic Treatment CBC WITH DIFFERENTIAL, B Routine 02/02/2019 9:04 AM CDT [employer] Antibiotic Treatment ALANINE AMINOTRANSFERASE (ALT), S/P Routine 02/02/2019 9:04 AM CDT [employer] Antibiotic Treatment ALKALINE PHOSPHATASE, S/P Routine 02/02/2019 9:04 AM CDT Long-Term Antibiotic Treatment CREATININE WITH EGFR, S/P Routine 01/26/2019 8:24 AM CDT Long-Term Antibiotic Treatment CBC WITH DIFFERENTIAL, B Routine 01/26/2019 8:24 AM CDT Long-Term Antibiotic Treatment ALANINE AMINOTRANSFERASE (ALT), S/P Routine 01/26/2019 8:24 AM CDT Long-Term Antibiotic Treatment ALKALINE PHOSPHATASE, S/P Routine 01/26/2019 8:24 AM CDT [employer] Antibiotic Treatment CREATININE WITH EGFR, S/P Routine 01/19/2019 8:12 AM CDT Long-Term Antibiotic Treatment CBC WITH DIFFERENTIAL, B Routine 01/19/2019 8:12 AM CDT Long-Term Antibiotic Treatment ALANINE AMINOTRANSFERASE (ALT), S/P Routine 01/19/2019 8:12 AM CDT Long-Term Antibiotic Treatment ALKALINE PHOSPHATASE, S/P Routine 01/19/2019 8:12 AM CDT Long-Term Antibiotic Treatment MR CERVICAL SPINE WITHOUT AND WITH IV CONTRAST RAD - Routine (most inpatients and all outpatients) 01/17/2019 10:44 AM CDT Mass Hepatic Pain Cervical BACTERIA / NARGIS CULTURE, BLOOD Routine 01/16/2019 3:45 PM CDT Mass Hepatic Pain Cervical BACTERIA / NARGIS CULTURE, BLOOD Routine 01/16/2019 3:44 PM CDT Mass Hepatic Pain Cervical CT ABDOMEN PELVIS WITH IV CONTRAST RAD - Routine (most inpatients and all outpatients) 01/15/2019 1:50 PM CDT Mass Hepatic IR ABSCESS DRAIN REMOVAL RAD - Routine (most inpatients and all outpatients) 01/11/2019 11:51 AM CDT Mass Hepatic TICK-BORNE AB PANEL Routine 01/10/2019 9:43 AM CDT Pain Neck CBC WITH DIFFERENTIAL, B Routine 01/09/2019 8:14 AM CDT Mass Hepatic ALANINE AMINOTRANSFERASE (ALT), S/P Routine 01/09/2019 8:14 AM CDT Mass Hepatic CREATININE WITH EGFR, S/P Routine 01/09/2019 8:14 AM CDT Mass Hepatic ALKALINE PHOSPHATASE, S/P Routine 01/09/2019 8:14 AM CDT Mass Hepatic IR ABSCESS DRAIN EXCHANGE RAD - Routine (most inpatients and all outpatients) 01/04/2019 1:31 PM CDT Mass Hepatic CBC WITH DIFFERENTIAL, B Routine 01/02/2019 8:19 AM CDT Mass Hepatic ALANINE AMINOTRANSFERASE (ALT), S/P Routine 01/02/2019 8:19 AM CDT Mass Hepatic CREATININE WITH EGFR, S/P Routine 01/02/2019 8:19 AM CDT Mass Hepatic ALKALINE PHOSPHATASE, S/P Routine 01/02/2019 8:19 AM CDT Mass Hepatic IR ABSCESS DRAIN CHECK RAD - Routine (most inpatients and all outpatients) 12/26/2018 1:17 PM CDT Mass Hepatic ALKALINE PHOSPHATASE, S/P Routine 12/26/2018 8:35 AM CDT Mass Hepatic CBC WITH DIFFERENTIAL, B Routine 12/26/2018 8:35 AM CDT Mass Hepatic ALANINE AMINOTRANSFERASE (ALT), S/P Routine 12/26/2018 8:35 AM CDT Mass Hepatic CREATININE WITH EGFR, S/P Routine 12/26/2018 8:35 AM CDT Mass Hepatic US LIVER DRAIN PLACEMENT RAD - Routine (most inpatients and all outpatients) 12/20/2018 3:21 PM CDT COMPREHENSIVE METABOLIC PANEL, S/P Routine 12/20/2018 2:[address] PERIPHERALLY INSERTED CENTRAL CATHETER (PICC) Routine 12/19/2018 12:48 PM CDT Hypertension Essential Primary CBC WITHOUT DIFFERENTIAL, B Routine 12/19/2018 7:54 AM CDT COMPREHENSIVE METABOLIC PANEL, S/P Routine 12/19/2018 7:54 AM CDT FL FLUORO LESS THAN 1 HOUR Routine 12/18/2018 2:31 PM CDT LDA ANE ENDOTRACHEAL AIRWAY Routine 12/18/2018 1:58 PM CDT ERCP Routine 12/18/2018 12:55 PM CDT ERCP Routine 12/18/2018 12:55 PM CDT GASTROENTEROLOGY IMAGE EXAM Routine 12/18/2018 12:55 PM CDT US LIVER ASPIRATION WITH IMAGE GUIDANCE RAD - Routine (most inpatients and all outpatients) 12/18/2018 10:47 AM CDT CYTOLOGY FINE NEEDLE ASPIRATION (INCLUDES CORE BIOPSIES Routine 12/18/2018 10:35 AM CDT FUNGAL SMEAR Timed 12/18/2018 10:30 AM CDT FUNGAL CULTURE, ROUTINE Timed 12/18/2018 10:30 AM CDT GRAM STAIN Timed 12/18/2018 10:30 AM CDT BACTERIAL CULTURE, ANAEROBIC + SUSC Timed 12/18/2018 10:30 AM CDT BACTERIAL CULTURE, AEROBIC + SUSC Timed 12/18/2018 10:30 AM CDT CBC WITHOUT DIFFERENTIAL, B Routine 12/18/2018 2:59 AM CDT COMPREHENSIVE METABOLIC PANEL, S/P Routine 12/18/2018 2:59 AM CDT CBC WITHOUT DIFFERENTIAL, B Timed 12/17/2018 6:27 AM CDT HEPATIC FUNCTION PANEL, S Timed 12/17/2018 6:27 AM CDT BASIC METABOLIC PANEL, S/P Timed 12/17/2018 6:27 AM CDT PROTHROMBIN TIME (PT), P STAT 12/16/2018 3:20 PM CDT BACTERIA / NARGIS CULTURE, BLOOD Routine 12/16/2018 1:10 AM CDT ALPHA-FETOPROTEIN (AFP) TM, S Routine 12/16/2018 12:52 AM CDT CBC WITHOUT DIFFERENTIAL, B Routine 12/16/2018 12:52 AM CDT COMPREHENSIVE METABOLIC PANEL, S/P Routine 12/16/2018 12:52 AM CDT BACTERIA / NARGIS CULTURE, BLOOD Routine 12/16/2018 12:52 AM CDT RESPIRATORY ASSESS AND TREAT Routine 12/16/2018 12:12 AM CDT DIPSTICK, POCT, U (DIPC1) Routine 12/15/2018 8:54 PM CDT MICROSCOPIC MANUAL STAT 12/15/2018 8:52 PM CDT URINALYSIS WITH MICROSCOPIC STAT 12/15/2018 8:[address], U STAT 12/15/2018 8:52 PM CDT BACTERIAL CULTURE, AEROBIC + SUSC, URINE STAT 12/15/2018 8:52 PM CDT US ABDOMEN LIMITED LIVER RAD - Semiurgent (Fast; most ED patients; some inpatients) 12/15/2018 8:46 PM CDT LACTATE, B/P STAT 12/15/2018 7:53 PM CDT LIPASE, S/P STAT 12/15/2018 7:53 PM CDT HEPATIC FUNCTION PANEL, S STAT 12/15/2018 7:53 PM CDT BASIC METABOLIC PANEL, S/P STAT 12/15/2018 7:53 PM CDT CBC WITHOUT DIFFERENTIAL, B STAT 12/15/2018 7:[address] ABDOMEN PELVIS WITH IV CONTRAST RAD - Routine (most inpatients and all outpatients) 12/15/2018 1:05 PM CDT Pain Right Upper Quadrant MICROSCOPIC AUTOMATED STAT 12/15/2018 11:02 AM CDT URINALYSIS WITH MICROSCOPIC IF INDICATED, U STAT 12/15/2018 11:02 AM CDT Night Sweats DX CHEST AP OR PA AND LATERAL 2 VIEWS RAD - Routine (most inpatients and all outpatients) 12/15/2018 10:34 AM CDT Night Sweats LIPASE, S/P STAT 12/15/2018 9:49 AM CDT Pain Right Upper Quadrant AMYLASE, TOT, S STAT 12/15/2018 9:49 AM CDT Pain Right Upper Quadrant COMPREHENSIVE METABOLIC PANEL, S/P STAT 12/15/2018 9:49 AM CDT Pain Right Upper Quadrant CBC WITH DIFFERENTIAL, B STAT 12/15/2018 9:49 AM CDT Pain Right Upper Quadrant DX CHEST AP OR PA AND LATERAL 2 VIEWS RAD - Semiurgent (Fast; most ED patients; some inpatients) 03/24/2018 8:01 PM CDT Shortness Of Breath DX CHEST AP OR PA AND LATERAL 2 VIEWS RAD - Routine (most inpatients and all outpatients) 01/30/2018 11:32 AM CDT Cough Chronic Obstructive Pulmonary Disease (HCC) LIPID PANEL, S Routine 11/21/2017 11:14 AM CDT Hypertension Essential Primary Hypercholesterolemi a COMPREHENSIVE METABOLIC PANEL, S/P Routine 11/21/2017 11:14 AM CDT Hypertension Essential Primary Hypercholesterolemi a URINALYSIS, DIPSTICK Routine 09/21/2017 8:39 AM [employer] Department Of Transportation Examination [employer] DX CHEST AP OR PA AND LATERAL 2 VIEWS Routine 04/26/2017 4:24 PM CDT ECG Routine 04/26/2017 4:16 PM CDT THYROID-STIMULATING HORMONE-SENSITIVE (S-TSH) Routine 04/26/2017 4:10 PM CDT POTASSIUM, S/P Routine 04/26/2017 4:10 PM CDT SODIUM, S/P Routine 04/26/2017 4:10 PM CDT AUTOMATED DIFFERENTIAL, B Routine 04/26/2017 4:10 PM CDT CBC WITH DIFFERENTIAL, B Routine 04/26/2017 4:10 PM CDT US SCROTUM Routine 12/03/2016 10:02 AM CDT BACTERIAL CULTURE, AEROBIC, URINE Routine 12/03/2016 9:43 AM CDT URINALYSIS, MIDSTREAM, WITH CULTURE IF INDICATED Routine 12/03/2016 9:12 AM CDT CHLAMYDIA TRACHOMATIS AMPLIFIED RNA Routine 12/03/2016 9:12 AM CDT CHLAMYDIA/GONORRHOEAE AMPLIFIED RNA Routine 12/03/2016 9:12 AM CDT DIPSTICK, U Routine 09/27/2016 9:41 AM CDT COMPREHENSIVE METABOLIC PANEL, S/P Routine 07/28/2016 8:09 AM [employer] LIPID PANEL, S Routine 07/28/2016 8:09 AM [employer] DIPSTICK, U Routine 10/06/2015 10:09 AM CDT LIPID PANEL, S Routine 01/30/2015 8:59 AM CDT ALANINE AMINOTRANSFERASE (ALT), S/P Routine 01/30/2015 8:59 AM CDT CBC WITHOUT DIFFERENTIAL, B Routine 10/31/2014 2:58 PM CDT PROSTATE-SPECIFIC AG (PSA) SCRN, S Routine 10/31/2014 2:58 PM CDT GLUCOSE, FASTING, S/P Routine 10/31/2014 2:58 PM CDT ALANINE AMINOTRANSFERASE (ALT), S/P Routine 10/31/2014 2:58 PM CDT LIPID PANEL, S Routine 10/31/2014 2:58 PM CDT DX CHEST AP OR PA AND LATERAL 2 VIEWS Routine 12/17/2013 4:53 PM CDT DIPSTICK, U Routine 10/10/2013 9:23 AM CDT ASPARTATE AMINOTRANSFERASE (AST), S/P Routine 03/01/2012 8:11 AM CDT LIPID PANEL, S Routine 03/01/2012 8:11 AM CDT ASPARTATE AMINOTRANSFERASE (AST), S/P Routine 12/31/2011 8:35 AM CDT GLUCOSE, P Routine 12/02/2011 7:37 AM CDT LIPID PANEL, S Routine 12/02/2011 7:37 AM CDT PROSTATE-SPECIFIC AG (PSA) SCRN, S Routine 12/02/2011 7:37 AM CDT URINE MICROSCOPIC Routine 10/21/2011 12:06 PM CDT URINALYSIS, ROUTINE Routine 10/21/2011 12:06 PM CDT SURGICAL PATHOLOGY Routine 09/22/2010 12:00 AM [employer] SURGICAL PATHOLOGY Routine 09/22/2010 12:00 AM [employer] DX CHEST AP OR PA AND LATERAL 2 VIEWS Routine 08/02/2009 10:32 AM [employer] DX CHEST AP OR PA AND LATERAL 2 VIEWS Routine 04/29/2008 2:16 PM CDT RADIOLOGY IMAGE EXAM Routine 04/29/2008 2:05 PM CDT Results * EMG (10/09/2024 10:50 AM CDT) 10/09/2024 11:1 5 AM CDT Narrative EMG - 10/09/2024 12:55 PM CDT Table formatting from the original result was not included. 09-Oct-2024 Electromyography Final Report Study Number: 1 EMG Storm Window Installer: Ayana Brooks 127 or [phone] Referred by: KATHARINE ALCALA () Referred for: L>R hand numbness [...] sensory predominant polyneuropathy. Wilder Brooks (127 or [phone]) NERVE CONDUCTIONS Record Rep Normal Normal Distal [...] Brooks D.O. at 10/09/2024 12:54:29 PM CDT us Katharine Alcala APRN, C.N.P., D.N.P. NEUROLOGY OR DERABLES Final Result [facility] * Basic Metabolic Panel (09/05/2024 8:32 AM [employer]) Only the most recent of3 resultswithin the time period is included. [facility] Potassium, P 4.4 3.6 - 5.2 mmol/L 09/05/2024 9:14 AM [employer] Sodium, P 140 135 - 145 mmol/L 09/05/2024 9:14 AM [employer] Chloride, P 104 98 - 107 mmol/L 09/05/2024 9:14 AM [employer] Bicarbonate, P 25 22 - 29 mmol/L 09/05/2024 9:14 AM [employer] Anion Gap, P 11 7 - 15 09/05/2024 9:14 AM [employer] BUN (Blood Urea Nitrogen), P 18 8 - 24 mg/dL 09/05/2024 9:14 AM [employer] Creatinine 0.76 0.74 - 1.35 mg/dL 09/05/2024 9:14 AM [employer] Estimated GFR (eGFR) >90 >=60 mL/min/BSA 09/05/2024 9:14 AM [employer] Comment: Estimated GFR calculated using the 2020 CKD_EPI creatinine equation. Calcium, Total, P 9.0 8.8 - 10.2 mg/dL 09/05/2024 9:14 AM [employer] Glucose, P 97 70 - 140 mg/dL 09/05/2024 9:14 AM [employer] Blood (Blood, Venous) 09/05/2024 8:32 AM [employer] 09/05/2024 8:49 AM [employer] us Katharine Alcala APRN, C.N.P., D.N.P. LAB BLOOD AD D-ON Final Result [facility] [address] [place] [address], [facility] OWAT [facility] [place] [address] [place] [address] * (ABNORMAL) Albumin, Random, Urine (09/05/2024 8:30 AM [employer]) Microalbumin 56.0 mg/L 09/05/2024 9:26 AM [employer] Creatinine 105 mg/dL 09/05/2024 9:26 AM [employer]AT Albumin/Creatinin e Ratio 53(H) <17 mg/g 09/05/2024 9:26 AM [employer] Urine (Urine, Midstream) 09/05/2024 8:30 AM [employer] 09/05/2024 8:40 AM [employer] us Katharine Alcala APRN, C.N.P., D.N.P. LAB URINE OR DERABLES Final Result Performing Organization Address [facility] Co de Phone Number [facility] [address] [place] [address], [facility] OWAT [facility] [place] [address] [place] [address] * Glucose, Fasting (10/27/2023 11:38 AM CDT) Only the most recent of2 resultswithin the time period is included. Glucose, P 93 70 - 100 mg/dL 10/27/2023 12:26 PM CDT OWAT Last Intake 6 hr 10/27/2023 11:41 AM CDT OWAT Blood (Blood, Venous) 10/27/2023 11:38 AM CDT 10/27/2023 11:40 AM CDT us Elsy Winn APRN, C.N.P., D.N.P. LAB BLOO D NON ADD-ON Final Result Performing Organization Address [facility] Co de Phone Number [facility] [address] [place] [address], [facility] OWAT [facility] [place] [address] [place] [address] * Lipid Panel (10/27/2023 11:37 AM CDT) Only the most recent of7 resultswithin the time period is included. Triglycerides 57 mg/dL 10/27/2023 12:31 PM CDT OWAT Comment: ----REFERENCE VALUE---- Normal: <150 mg/dL Borderline High: 150-199 mg/dL High: 200-499 mg/dL Very High: > or =500 mg/dL Cholesterol, Total 127 mg/dL 2023 12:31 PM CDT OWAT Comment: ----REFERENCE VALUE---- Desirable: < 200 mg/dL Borderline High: 200 - 239 mg/dL High: > or = 240 mg/dL Cholesterol, LDL, Calculated 66 mg/dL 10/27/2023 12:31 PM CDT OWAT Comment: ----REFERENCE VALUE---- Desirable: <100 mg/dL Above Desirable: 100-129 mg/dL Borderline High: 130-159 mg/dL High: 160-189 mg/dL Very High: >=190 mg/dL ----ADDITIONAL INFORMATION---- LDL cholesterol calculated using the Tejada/NIH equation. Cholesterol, HDL 49 >=40 mg/dL 10/27/19 12:31 PM CDT OWAT Cholesterol, Non-HDL, Calculated 78 mg/dL 10/27/2023 12:31 PM CDT OWAT Comment: ----REFERENCE VALUE---- Desirable: <130 mg/dL Above Desirable: 130-159 mg/dL Borderline High: 160-189 mg/dL High: 190-219 mg/dL Very High: > or =220 mg/dL Fasting (8 HR or more) No 10/27/2023 11:40 AM CDT OWAT Blood (Blood, Venous) 10/27/2023 11:37 AM CDT 10/27/2023 11:40 AM CDT Elsy Winn APRN, C.N.P., D.N.P. LAB BLOO D ADD-ON Final Result [facility] [address] [place] [address], [facility] [place] [address] [place] [address] * HCV Ab Scrn w/Reflex to HCV PCR, Serum (10/27/2023 11:37 AM CDT) HCV Ab Screen, S Negative Negative 10/27/19 2:32 PM CDT MKTO Comment: Biotin has been identified by the learn to swim instructor as a potential interfering substance. Higher concentrations of biotin may be found in multivitamins, hair/nail supplements, and workout supplements. If the result does not match clinical observations, repeat testing after patient refrains from the use of supplements for at least 12 hours. Blood (Blood, Venous) 10/27/2023 11:37 AM CDT 10/27/2023 1:34 PM CDT Narrative [facility] - 10/27/2023 2:32 PM CDT Specimen Information: Specimen ID: [id number] Specimen Type: Blood Specimen Collection Start Date: 10/27/2023 11:37 AM Specimen Received Date: 10/27/2023 1:34 PM Specimen ID: [id number] Specimen Type: Blood Specimen Collection Start Date: 10/27/2023 11:37 AM Specimen Received Date: 10/27/2023 1:59 PM [facility] Nolan Winn APRN C.N .P., D.N.P. LAB MICROBIOLOGY - BLOOD [place] [address], [facility] [place] [address] * Comprehensive Metabolic Panel (10/27/2023 11:37 AM CDT) Only the most recent of10 resultswithin the time period is included. Potassium, P 4.9 3.6 - 5.2 mmol/L 10/27/2023 12:31 PM CDT OWAT Sodium, P 141 135 - 145 mmol/L 10/27/2023 12:31 PM CDT OWAT Chloride, P 104 98 - 107 mmol/L 10/27/2023 12:31 PM CDT OWAT Bicarbonate, P 28 22 - 29 mmol/L 10/27/2023 12:31 PM CDT OWAT Anion Gap, P 9 7 - 15 10/27/2023 12:31 PM CDT OWAT BUN (Blood Urea Nitrogen), P 17 8 - 24 mg/dL 10/27/2023 12:31 PM CDT OWAT Creatinine 0.79 0.74 - 1.35 mg/dL 10/27/2023 12:31 PM CDT OWAT Estimated GFR (eGFR) >90 >=60 mL/min/BS A 10/27/2023 12:31 PM CDT OWAT Comment: Estimated GFR calculated using the 2020 CKD_EPI creatinine equation. Calcium, Total, P 9.4 8.8 - 10.2 mg/dL 10/27/2023 12:31 PM CDT OWAT Glucose, P CANCELED mg/dL 10/27/2023 11:41 AM CDT OWAT Comment: Duplicate test request. Result canceled by the ancillary. Protein, Total, P 7.5 6.3 - 7.9 g/dL 10/27/2023 12:31 PM CDT OWAT Albumin, P 4.4 3.5 - 5.0 g/dL 10/27/2023 12:31 PM CDT OWAT Aspartate Aminotransferase (AST), P 26 8 - 48 U/L 10/27/2023 12:31 PM CDT OWAT Alkaline Phosphatase, P 97 40 - 129 U/L 10/27/2023 12:31 PM CDT OWAT Alanine Aminotransferase (ALT), P 26 7 - 55 U/L 10/27/2023 12:31 PM CDT OWAT Bilirubin, Total, P 0.6 0.0 - 1.2 mg/dL 10/27/2023 12:31 PM CDT OWAT Blood (Blood, Venous) 10/27/2023 11:37 AM CDT 10/27/2023 11:40 AM CDT Elsy Winn APRN, C.N.P., D.N.P. LAB BLOO D ADD-ON Final Result [facility] [address] [place] [address], [facility] OWAT [facility] [place] [address] [place] [address] * (ABNORMAL) CBC with Differential, Blood (12/17/2022 2:36 PM CDT) Only the most recent of13 resultswithin the time period is included. Hemoglobin 12.1(L) 13.2 - 16.6 g/dL 12/17/2022 2:41 PM CDT FB60 Hematocrit 38.2(L) 38.3 - 48.6 % 12/17/2022 2:41 PM CDT FB60 Erythrocytes 4.00(L) 4.35 - 5.65 x10(12)/L 12/17/2022 2:41 PM CDT FB60 MCV 95.5 78.2 - 97.9 fL 12/17/2022 2:41 PM CDT FB60 RBC Distrib Width 14.1 11.8 - 14.5 % 12/17/2022 2:41 PM CDT FB60 Platelet Count 546(H) 135 - 317 x10(9)/L 12/17/2022 2:41 PM CDT FB60 Leukocytes 5.5 3.4 - 9.6 x10(9)/L 12/17/2022 2:41 PM CDT FB60 Neutrophils 3.73 1.56 - 6.45 x10(9)/L 12/17/2022 2:41 PM CDT FB60 Lymphocytes 0.84(L) 0.95 - 3.07 x10(9)/L 12/17/2022 2:41 PM CDT FB60 Monocytes 0.67 0.26 - 0.81 x10(9)/L 12/17/2022 2:41 PM CDT FB60 Eosinophils 0.18 0.03 - 0.48 x10(9)/L 12/17/2022 2:41 PM CDT FB60 Basophils 0.05 0.01 - 0.08 x10(9)/L 12/17/2022 2:41 PM CDT FB60 Blood (Blood, Venous) 12/17/2022 2:36 PM CDT 12/17/2022 2:36 PM CDT us Refugio Falk P.A.-C. LAB BLOOD ADD-ON Final Result [facility] [address] [facility] [place] [address], [facility] FB60 [facility] [place] [address] [place] [address] * US Abdomen Complete (11/30/2022 11:09 AM CDT) Anatomical Region Laterality Modality Abdomen, Ultrasound RST LOS, Ultrasound ARZ LOS, Ultrasound FLA LOS N/A Ultrasound 11/30/2022 11:2 9 AM CDT Impressions 11/30/2022 11:39 AM CDT No suspicious hepatic abnormality is identified. Dilated intrahepatic ducts as well as the common bile duct. Polypoid echogenic material in the gallbladder suggests biliary sludge. For further assessment of the biliary system, consider correlation with MRI/MRCP as clinically appropriate. Narrative 11/30/2022 11:39 AM CDT EXAM: US ABDOMEN COMPLETE COMPARISON: Liver ultrasound 12/15/2018 FINDINGS: Liver: No suspicious hepatic abnormality is identified. Gallbladder: Polypoid echogenic material without internal vascularity suggests biliary sludge. No definite findings to suggest acute cholecystitis. Negative sonographic Carson's sign. Intrahepatic ducts: Dilated measuring up to 8.7 mm Common duct: Dilated measuring up to 12.3 mm Pancreas: Not seen due to overlying bowel gas. Right kidney: Length: 11.2 cm. Normal echogenicity. No hydronephrosis. Left kidney: Length: 12.1 cm. Normal echogenicity. No hydronephrosis. Spleen: Normal. Spleen length: 9.1 cm Aorta: Normal caliber. Distal aorta is obscured due to bowel gas. IVC: Normal where seen. Ascites: Trace free fluid in the left upper and right upper quadrants. Procedure Note Simon Ramires M.D. - 11/30/2022 EXAM: US ABDOMEN COMPLETE COMPARISON: Liver ultrasound 12/15/2018 FINDINGS: Liver: No suspicious hepatic abnormality is identified. Gallbladder: Polypoid echogenic material without internal vascularitysuggests biliary sludge. No definite findings to suggest acute cholecystitis. Negative sonographicMurphy's sign. Intrahepatic ducts: Dilated measuring up to 8.7 mm Common duct: Dilated measuring up to 12.3 mm Pancreas: Not seen due to overlying bowel gas. Right kidney: Length: 11.2 cm. Normal echogenicity. No hydronephrosis. Left kidney: Length: 12.1 cm. Normal echogenicity. No hydronephrosis. Spleen: Normal. Spleen length: 9.1 cm Aorta: Normal caliber. Distal aorta is obscured due to bowel gas. IVC: Normal where seen. Ascites: Trace free fluid in the left upper and right upper quadrants. IMPRESSION: No suspicious hepatic abnormality is identified. Dilated intrahepaticducts as well as the common bile duct. Polypoid echogenic material in the gallbladdersuggests biliary sludge. For further assessment of the biliary system, consider correlation withMRI/MRCP as clinically appropriate. Erlin Caballero M.D. IMG US PROCEDURES F inal Result * DX Chest Portable 1 View (11/29/2022 10:11 PM CDT) Anatomical Region Laterality Modality Chest, Thoracic RST LOS, Tho racic ARZ LOS, Thoracic FLA LOS N/A Digital Radiography 11/29/2022 10:1 2 PM CDT Impressions 11/29/2022 10:13 PM CDT Normal heart size. Aortic arch calcification. No consolidation, pleural effusion, or pneumothorax. No other acute osseous or soft tissue abnormality. No other concerning change from 11/27/2022. Narrative 11/29/2022 10:13 PM CDT EXAM: DX CHEST PORTABLE 1 VIEW Procedure Note Jordon Ortega M.D. - 11/29/2022 EXAM: DX CHEST PORTABLE 1 VIEW IMPRESSION: Normal heart size. Aortic arch calcification. No consolidation, pleuraleffusion, or pneumothorax. No other acute osseous or soft tissue abnormality. No otherconcerning change from 11/27/2022. Charmaine Carvalho APRN, C.N.P., D.N.P. IM DIAGNOST IC IMAGING PROCEDURES Final Result * CT Abdomen Pelvis without IV Contrast (11/27/2022 7:20 PM CDT) Anatomical Region Laterality Modality Abdomen, Pelvis, Abdominal R ST LOS, Abdominal ARZ LOS, Abdominal FLA LOS N/A Computed Tomography 11/27/2022 7:58 PM CDT Impressions 11/27/2022 8:09 PM CDT 1. Findings suggestive of acute pancreatitis. Stable appearing chronic dilatation of the pancreatic duct at the head/neck with tiny focus of intraductal gas. No loculated fluid collection. 2. Stable appearing chronic mild intra and extrahepatic biliary ductal dilatation. 3. Possible mild acute enteritis. No bowel obstruction. Narrative 11/27/2022 8:09 PM CDT EXAM: CT ABDOMEN PELVIS WITHOUT IV CONTRAST COMPARISON: CTA chest 06/30/2021, CT abdomen/pelvis with IV contrast 02/13/2019 FINDINGS: Diffuse pancreatic and peripancreatic inflammatory stranding/edema. Mild pancreatic ductal dilatation at the pancreatic head/neck with tiny focus of gas within the pancreatic duct (2), similar to 02/13/2019. 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 Limited evaluation for pancreatic necrosis in this unenhanced examination. No loculated fluid collection. Stable chronic mild intra and extrahepatic biliary ductal dilatation. Cholelithiasis without evidence of gallbladder wall thickening. Grossly unremarkable liver and adrenal glands. Calcified splenic granuloma. Splenule. Simple right renal cortical cyst. No hydronephrosis or obstructing urinary system calculi. Small hiatal hernia. Colonic diverticulosis without definite evidence of acute diverticulitis. Negative air-filled right lower quadrant appendix. A few fluid-filled loops of small bowel in the pelvis. No pneumatosis, portal venous gas or free intraperitoneal air. Enlarged prostate. Small fat-containing umbilical and left inguinal hernias. Diffuse urinary bladder wall thickening with trabeculation, likely secondary to chronic outlet obstruction. Bibasilar atelectasis/scarring. Degenerative changes of the spine and both hips. Procedure Note Mook Mariee M.D. - 11/27/2022 EXAM: CT ABDOMEN PELVIS WITHOUT IV CONTRAST COMPARISON: CTA chest 06/30/2021, CT abdomen/pelvis with IV contrast02/13/2019 FINDINGS: Diffuse pancreatic and peripancreatic inflammatory stranding/edema. Mildpancreatic ductal dilatation at the pancreatic head/neck with tiny focus of gas within thepancreatic duct (2/98), similar to 02/13/2019. Patient with known anomalous insertion of ventralpancreatic duct as reported on 12/18/2018 ERCP. Limited evaluation for pancreatic necrosis in thisunenhanced examination. No loculated fluid collection. Stable chronic mild intra and extrahepatic biliary ductal dilatation.Cholelithiasis without evidence of gallbladder wall thickening. Grossly unremarkable liver and adrenal glands. Calcified splenicgranuloma. Splenule. Simple right renal cortical cyst. No hydronephrosis or obstructing urinary systemcalculi. Small hiatal hernia. Colonic diverticulosis without definite evidence of acute diverticulitis.Negative air-filled right lower quadrant appendix. A few fluid-filled loops of small bowel in thepelvis. No pneumatosis, portal venous gas or free intraperitoneal air. Enlarged prostate. Smallfat- containing umbilical and left inguinal hernias. Diffuse urinary bladder wall thickening withtrabeculation, likely secondary to chronic outlet obstruction. Bibasilar atelectasis/scarring. Degenerative changes of the spine and bothhips. IMPRESSION: 1. Findings suggestive of acute pancreatitis. Stable appearing chronicdilatation of the pancreatic duct at the head/neck with tiny focus of intraductal gas. No loculatedfluid collection. 2. Stable appearing chronic mild intra and extrahepatic biliary ductaldilatation. 3. Possible mild acute enteritis. No bowel obstruction. us Sussy Braxton P.A.-C., P.A., M.S. IMG CT PRO CEDURES Final Result * DX Chest AP or PA and Lateral 2 Views (11/27/2022 5:33 PM CDT) Only the most recent of10 resultswithin the time period is included. Anatomical Region Laterality Modality Chest, Thoracic RST LOS, Tho racic ARZ LOS, Thoracic FLA LOS N/A Digital Radiography 11/27/2022 6:08 PM CDT Impressions 11/27/2022 6:11 PM CDT No acute findings. No active disease. Mild linear atelectasis or scarring in both lung bases. Normal cardiac size and pulmonary vascularity. Narrative 11/27/2022 6:11 PM CDT EXAM: DX CHEST AP OR PA AND LATERAL 2 VIEWS Procedure Note Noé Henderson M.D. - 05/13/2023 EXAM: DX CHEST AP OR PA AND LATERAL 2 VIEWS IMPRESSION: No acute findings. No active disease. Mild linear atelectasis or scarringin both lung bases. Normal cardiac size and pulmonary vascularity. us Sussy Braxton P.A.-C., David MMeyS. IMG DIAGNO STIC IMAGING PROCEDURES Final Result * SARS Coronavirus 2, PCR (05/01/2022 3:01 PM CDT) SARS Coronavirus 2, PCR Undetected Undetected 05/01/2022 3:39 PM CDT OWAT Comment: SARS-CoV-2 RNA absent. This result does not rule out COVID-19 in the patient, as the sensitivity of the test depends on the timing of the specimen collection and the quality of the specimen. Result should be correlated with patient's history and clinical presentation. ----ADDITIONAL INFORMATION---- This RT-PCR test using the Xpert Xpress CoV-2 plus assay ([employer] performed on the GeneQuarterSpot DX systems has received Emergency Use Authorization (EUA) by the U.S. Food and Drug Administration. Performance characteristics were verified by [facility] in a manner consistent with CLIA requirements. Fact sheets for this Emergency Use Authorization (EUA) assay can be found at the following links: For Healthcare Providers: https://www.fda.gov/media/949290/download For Patients: https://www.fda.gov/media/813152/download SARS Coronavirus 2, Source Nasopharynx 05/01/2022 3:39 PM CDT OWAT 05/01/2022 3:01 PM CDT 05/01/2022 3:39 PM CDT us Jaime Fowler P.A.-C. LAB MICROBIOLOGY - GE NERAL ORDERABLES Final Result [facility] [address] [place] [address], [place] [facility] [facility] [place] [address] [place] [address] * CT Head without IV Contrast (10/14/2021 1:16 PM CDT) Anatomical Region Laterality Modality Head, Neuroradiology RST LOS , Neuroradiology ARZ LOS, Neuroradiology FLA LOS N/A Computed Tomography 10/14/2021 1:21 PM CDT Impressions 10/14/2021 1:26 PM CDT 1. No acute intracranial hemorrhage or mass effect. 2. Moderate scattered paranasal sinus mucosal thickening most pronounced in the left maxillary sinus with an air-fluid level, this can be seen with acute sinusitis in the appropriate clinical setting. Narrative 10/14/2021 1:26 PM CDT EXAM: CT HEAD WITHOUT IV CONTRAST COMPARISON: None FINDINGS: No acute intracranial hemorrhage or mass effect. Mild global brain parenchymal volume loss. Scattered areas of decreased attenuation within the hemispheric white matter, these findings are nonspecific but given the patient's age likely reflect sequela of chronic small vessel ischemia. Intracranial atheromatous disease. Moderate scattered paranasal sinus mucosal thickening most pronounced in the left maxillary sinus with an air-fluid level, this can be seen with acute sinusitis in the appropriate clinical setting. 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 Punctate foreign body along the upper margin of the left orbit. Procedure Note Jon Orozco M.D. - 10/14/2021 EXAM: CT HEAD WITHOUT IV CONTRAST COMPARISON: None FINDINGS: No acute intracranial hemorrhage or mass effect. Mild global brainparenchymal volume loss. Scattered areas of decreased attenuation within the hemispheric whitematter, these findings are nonspecific but given the patient's age likely reflect sequela of chronicsmall vessel ischemia. Intracranial atheromatous disease. Moderate scattered paranasal sinusmucosal thickening most pronounced in the left maxillary sinus with an air-fluid level, this canbe seen with acute sinusitis in the appropriate clinical setting. Chronic maxillofacialdeformities with scattered postoperative changes. Punctate foreign body along the upper margin of theleft orbit. IMPRESSION: 1. No acute intracranial hemorrhage or mass effect. 2. Moderate scattered paranasal sinus mucosal thickening most pronouncedin the left maxillary sinus with an air-fluid level, this can be seen with acute sinusitis inthe appropriate clinical setting. us Dleroy Restrepo III, M.D. IMG CT PROCEDURES Final Result * CT Chest Angiogram and Pulmonary Arteries with IV Contrast (06/30/2021 7:11 AM [employer]) Anatomical Region Laterality Modality Chest, Cardiovascular RST LO S, Thoracic ARZ LOS, Thoracic FLA LOS N/A Computed Tomography 06/30/2021 7:21 AM [employer] Impressions 06/30/2021 7:30 AM [employer] 1. Negative for acute pulmonary embolism. 2. Pulmonary emphysema. 3. Similar partial collapse the right middle lobe with a more focal nodular area of consolidation. Recommend continued imaging follow-up. 4. Borderline bilateral hilar lymphadenopathy of indeterminate significance. Narrative 06/30/2021 7:30 AM [employer] EXAM: CT CHEST ANGIOGRAM AND PULMONARY ARTERIES WITH IV CONTRAST Including 3-D image postprocessing. COMPARISON: Chest CT 08/06/2019 FINDINGS: Negative for acute pulmonary embolism. Pulmonary emphysema. Similar partial collapse the right middle lobe with similar approximately 18 mm nodular consolidation or mass on the right pericardial border (series 4 image 184). Dependent bilateral embolus opacities, likely atelectasis. Trace atelectasis or scarring in the lingula. No focal consolidation. No pleural effusion. Borderline bilateral hilar and mediastinal lymphadenopathy, possibly increased since previously. Not well seen on prior exams due to lack of IV contrast Pneumobilia, likely secondary to prior procedure. Procedure Note Freddie Thomas M.D. - 06/30/2021 EXAM: CT CHEST ANGIOGRAM AND PULMONARY ARTERIES WITH IV CONTRAST Including 3-D image postprocessing. COMPARISON: Chest CT 08/06/2019 FINDINGS: Negative for acute pulmonary embolism. Pulmonary emphysema. Similar partial collapse the right middle lobe with similar [id number] mm nodular consolidation or mass on the right pericardial border (series 4image 184). Dependent bilateral embolus opacities, likely atelectasis. Traceatelectasis or scarring in the lingula. No focal consolidation. No pleural effusion. Borderline bilateral hilar and mediastinal lymphadenopathy, possiblyincreased since previously. Not well seen on prior exams due to lack of IVcontrast Pneumobilia, likely secondary to prior procedure. IMPRESSION: 1. Negative for acute pulmonary embolism. 2. Pulmonary emphysema. 3. Similar partial collapse the right middle lobe with a more focalnodular area of consolidation. Recommend continued imaging follow-up. 4. Borderline bilateral hilar lymphadenopathy of indeterminatesignificance. Cade Maniclla M.D. [facility] [place] PROCEDURES Final Result * DX Pelvis 1-2 Views (11/24/2020 4:43 PM CDT) Anatomical Region Laterality Modality Pelvis, Musculoskeletal RST LOS, Musculoskeletal ARZ LOS, Muskuloskeletal FLA LOS N/A Digital Radiography 11/24/2020 4:49 PM CDT Impressions 11/24/2020 4:50 PM CDT 1. No acute abnormalities are identified in the pelvis. 2. Degenerative and hypertrophic changes in the lower lumbar spine. Narrative 11/24/2020 4:50 PM CDT EXAM: DX PELVIS 1-2 VIEWS COMPARISON: Left femur 11/24/[address] examination of the abdomen and pelvis 02/13/2019 FINDINGS: No acute fractures are seen. Mineralization is within normal limits. There are degenerative and hypertrophic changes in the lower lumbar spine. There are vascular calcifications. Procedure Note Fox Ko M.D. - 11/24/2020 EXAM: DX PELVIS 1-2 VIEWS COMPARISON: Left femur 11/24/[address] examination of the abdomen andpelvis 02/13/2019 FINDINGS: No acute fractures are seen. Mineralization is within normallimits. There are degenerative and hypertrophic changes in the lower lumbar spine.There are vascular calcifications. IMPRESSION: 1. No acute abnormalities are identified in the pelvis. 2. Degenerative and hypertrophic changes in the lower lumbar spine. Zeinab Morris P.A.-C. [facility] DIAGNOSTIC IMAGING PRO CEDURES Final Result * DX Femur Left 2 Views (11/24/2020 4:43 PM CDT) Anatomical Region Laterality Modality Lower Extremity, Femur, Musc uloskeletal RST LOS, Musculoskeletal ARZ LOS, Muskuloskeletal FLA LOS Left Digit al Radiography 11/24/2020 4:46 PM CDT Impressions 11/24/2020 4:49 PM CDT 1. No acute abnormalities are identified in the left femur. 2. Mild osteoarthritis in the medial left knee. 3. Vascular calcifications. Narrative 11/24/2020 4:49 PM CDT EXAM: DX FEMUR LEFT 2 VIEWS COMPARISON: CT examination of the abdomen and pelvis 02/13/2019 FINDINGS: No acute fractures or dislocations are seen. There is mild osteoarthritis in the left knee. There are vascular calcifications. There are degenerative changes in the lower lumbar spine. Procedure Note Fox Ko M.D. - 11/24/2020 EXAM: DX FEMUR LEFT 2 VIEWS COMPARISON: CT examination of the abdomen and pelvis 02/13/2019 FINDINGS: No acute fractures or dislocations are seen. There is mild osteoarthritis in the left knee. There are vascular calcifications. Thereare degenerative changes in the lower lumbar spine. IMPRESSION: 1. No acute abnormalities are identified in the left femur. 2. Mild osteoarthritis in the medial left knee. 3. Vascular calcifications. Zeinab Morris P.A.-C. IM DIAGNOSTIC IMAGING PRO CEDURES Final Result * CT Chest without IV Contrast (08/06/2019 12:35 PM [employer]) Only the most recent of2 resultswithin the time period is included. Anatomical Region Laterality Modality Chest, Thoracic RST LOS, Tho racic ARZ LOS, Thoracic FLA LOS N/A Computed Tomography, Compute d Tomography 08/06/2019 4:33 PM [employer] Impressions 08/06/2019 4:40 PM [employer] 1. Further right middle lobe collapse without a definite central obstructing lesion identified, may represent right middle lobe syndrome. 2. Other incidental findings are detailed in the body of the report. Narrative 08/06/2019 4:40 PM [employer] EXAM: CT CHEST WITHOUT IV CONTRAST No 3D post-processing performed. COMPARISON: PET/CT dated 05/08/2019, chest CT dated 04/10/2019 FINDINGS: Interval increase right middle lobe collapse without a definite centrally obstructing lesion. Upper lobe predominance centrilobular emphysema is again identified. Similar lingular scarring. The 2 mm solid noncalcified subpleural left lower lobe nodule on image 324 of series 3 has been stable since 04/10/2019, likely a lymph node. Mild diffuse bronchial wall thickening is again identified. Moderate to severe coronary and mild aortic calcifications are again identified. Shotty subcentimeter nodes without thoracic adenopathy by size criteria. Small sliding esophageal hiatal hernia is unchanged. Mild degenerative changes of the spine, stable. No aggressive osseous lesions identified. Thank you for the consultation. Procedure Note Jung Galindo M.D. - 08/06/2019 EXAM: CT CHEST WITHOUT IV CONTRAST No 3D post-processing performed. COMPARISON: PET/CT dated 05/08/2019, chest CT dated 04/10/2019 FINDINGS: Interval increase right middle lobe collapse without adefinite centrally obstructing lesion. Upper lobe predominance centrilobularemphysema is again identified. Similar lingular scarring. The 2 mm solid noncalcified subpleural left lower lobe nodule on image 324 of series 3 has been stablesince 04/10/2019, likely a lymph node. Mild diffuse bronchial wall thickening isagain identified. Moderate to severe coronary and mild aortic calcifications are againidentified. Shotty subcentimeter nodes without thoracic adenopathy by size criteria. Small sliding esophageal hiatal hernia is unchanged. Mild degenerative changes of the spine, stable. No aggressive osseous lesions identified. Thank you for the consultation. IMPRESSION: 1. Further right middle lobe collapse without a definite centralobstructing lesion identified, may represent right middle lobe syndrome. 2. Other incidental findings are detailed in the body of the report. us Germain Posada M.D. IMG CT PROCEDURES Final Resu lt * PET CT Skull to Thigh FDG (05/08/2019 8:31 AM CDT) Anatomical Region Laterality Modality Body, Nuclear Medicine PET R ST LOS, PET ARZ LOS, Nuclear Medicine PET FLA LOS N/A Positron Emission Tomography (PET), Positron Emission Tomography (PET) 05/08/2019 8:57 AM CDT Impressions 05/08/2019 9:23 AM CDT Resolving right middle lobe inflammatory consolidation. If clinically indicated, a follow-up in 6 months recommended to exclude the less likely potential for an indolent malignancy. Right testicular inflammation. Narrative 05/08/2019 9:23 AM CDT EXAM: PET CT SKULL TO THIGH FDG Finger stick glucose level at the time of the PET scan injection was 105 mg/dL. Patient followed standard dietary/fasting requirements for this exam. RADIOPHARMACEUTICAL/MEDS: Route: intravenous fludeoxyglucose F 18 injection FDC (FDG F-18),10.16 millicurie TECHNIQUE: F-18 FDG PET/CT scan was performed from the orbits through the thighs with CT fusion imaging for attenuation correction and anatomic coregistration only, with imaging beginning at approximately 60 minutes after radiotracer injection. COMPARISON: 04/10/2019 CT chest 02/13/2019 CT abdomen/pelvis INDICATION: Indeterminate right middle lobe consolidation. History of abscess involving the right lobe of the liver. Initial treatment strategy. FINDINGS: The anatomic configuration of the consolidation involving the medial segment of the right middle lobe abutting the mediastinum has partially decreased in size and configuration. Mild associated patchy FDG uptake, image 136, SUV max 2.7 compared to right and left hilar FDG uptake at 3.1 and 3.6, respectively, most compatible with an inflammatory process. No evidence of FDG avid malignancy on the remainder of the exam. Probable reactive left axillary lymph node, image 86. Minimal FDG activity within normal size paratracheal lymph nodes. Calcified atheromatous disease involving the coronary, aorta and iliac arteries. Question calcifications within the aortic valve. Prominent sigmoid diverticulosis. No evidence of FDG avid abscess involving the liver Asymmetric enlargement of the right testicle with increased FDG activity in small hydrocele may be due to inflammation. Clinical and if indicated sonographic evaluation recommended. Procedure Note Jose Manuel M.D. - 05/08/2019 EXAM: PET CT SKULL TO THIGH FDG Finger stick glucose level at the time of the PET scan injection was 105mg/dL. Patient followed standard dietary/fasting requirements for this exam. RADIOPHARMACEUTICAL/MEDS: Route: intravenous fludeoxyglucose F 18 injection FDC (FDG F-18),10.16 millicurie TECHNIQUE: F-18 FDG PET/CT scan was performed from the orbits throughthe thighs with CT fusion imaging for attenuation correction and anatomic coregistration only, with imaging beginning at approximately 60 minutesafter radiotracer injection. COMPARISON: 04/10/2019 CT chest 02/13/2019 CT abdomen/pelvis INDICATION: Indeterminate right middle lobe consolidation. History ofabscess involving the right lobe of the liver. Initial treatment strategy. FINDINGS: The anatomic configuration of the consolidation involving themedial segment of the right middle lobe abutting the mediastinum has partially decreased in size and configuration. Mild associated patchy FDG uptake, image 136, SUV max 2.7 compared toright and left hilar FDG uptake at 3.1 and 3.6, respectively, most compatible withan inflammatory process. No evidence of FDG avid malignancy on the remainderof the exam. Probable reactive left axillary lymph node, image 86. Minimal FDGactivity within normal size paratracheal lymph nodes. Calcified atheromatousdisease involving the coronary, aorta and iliac arteries. Question calcificationswithin the aortic valve. Prominent sigmoid diverticulosis. No evidence of FDGavid abscess involving the liver Asymmetric enlargement of the right testicle with increased FDG activityin small hydrocele may be due to inflammation. Clinical and if indicated sonographic evaluation recommended. IMPRESSION: Resolving right middle lobe inflammatory consolidation. If clinically indicated, a follow-up in 6 months recommended to exclude theless likely potential for an indolent malignancy. Right testicularinflammation. Thiago Huffman M.D. IMG NM PROCEDURES Final Resul t * ECG 12 Lead (04/26/2019 8:36 AM CDT) Only the most recent of2 resultswithin the time period is included. Ventricular Rate ECG/Min 48 BPM MUSE NJ Interval 198 ms MUSE QRSD Interval 162 ms MUSE QT Interval 506 ms MUSE QTC Interval 452 ms MUSE P [place] 75 degrees MUSE R Annabella -42 degrees MUSE T Wave Annabella 32 degrees MUSE 04/26/2019 8:09 AM CDT 04/26/2019 8:36 AM CDT Impressions MUSE - 04/26/2019 8:36 AM CDT Sinus bradycardia Premature atrial complexes Left atrial enlargement Left axis deviation Right bundle branch block with secondary ST-T abnormalities When compared with ECG of 26-APR-2017 16:16, No significant change was found Reviewed by CANDICE Lovelace Narrative Procedure Note Jordon Zhou M.D. - 04/26/2019 IMPRESSION: Sinus bradycardia Premature atrial complexes Left atrial enlargement Left axis deviation Right bundle branch block with secondary ST-T abnormalities When compared with ECG of 26-APR-2017 16:16, No significant change was found Reviewed by CANDICE Lovelace Thiago Huffman M.D. ECG ORDERABLES Final Result MUSE NA * Creatinine with Estimated GFR (04/09/2019 9:03 AM CDT) Only the most recent of8 resultswithin the time period is included. Creatinine 0.77 0.74 - 1.35 mg/dL 04/09/2019 10:04 AM CDT eGFR-Non Black/ 89 >=60 mL/min/BSA 04/09/2019 10:04 AM CDT Comment: ----ADDITIONAL INFORMATION---- Estimated GFR calculated using the 2009 CKD_EPI creatinine equation. eGFR-Black/Afric an [place]ian >90 >=60 mL/min/BSA 04/09/2019 10:04 AM CDT Comment: ----ADDITIONAL INFORMATION---- Estimated GFR calculated using the 2009 CKD_EPI creatinine equation. Blood (Blood, Venous) 04/09/2019 9:03 AM CDT 04/09/2019 9:06 AM CDT Thiago Huffman M.D. LAB BLOOD ADD-ON Final Result [facility] [address] [place] [address], [facility] * CT Abdomen Pelvis with IV Contrast (02/13/2019 12:58 PM CDT) Only the most recent of3 resultswithin the time period is included. Anatomical Region Laterality Modality Abdomen, Pelvis, Abdominal R ST LOS, Abdominal ARZ LOS, Abdominal FLA LOS N/A Computed Tomography 02/13/2019 12:3 6 PM CDT Impressions 02/13/2019 12:51 PM CDT Continued improvement in the right hepatic lobe abscess, with mild residual hypoenhancement. Narrative 02/13/2019 12:51 PM CDT EXAM: CT ABDOMEN PELVIS WITH IV CONTRAST COMPARISON: 01/15/2019 FINDINGS: The right hepatic lobe abscess noted on the 12/15/2018 examination continues to decrease in size. Residual hypoenhancement (series 3 image 41), without definite focal fluid, measures 2.5 x 1.9 cm versus 3.6 x 2.9 cm previously at a similar location. Mildly dilated adjacent posterior right lobe bile ducts have decreased in size. No new hepatic lesions. Stable mild prominence of intrahepatic ducts in the left lobe. Portal and hepatic veins are patent. Small amount of gas within the pancreatic duct. Small-mildly prominent bilateral pelvic lymph nodes are unchanged in appearance, the largest a left external iliac node measuring 10 mm in short axis diameter (series 3 image 106). Right renal cyst. Aortoiliac atherosclerosis. Colonic diverticulosis. Degenerative changes lumbar spine. Mild prostatic enlargement. Minimal linear atelectasis in the lung bases. Procedure Note Jon Damon M.D., Ph.D. - 02/13/2019 EXAM: CT ABDOMEN PELVIS WITH IV CONTRAST COMPARISON: 01/15/2019 FINDINGS: The right hepatic lobe abscess noted on the 12/15/2018examination continues to decrease in size. Residual hypoenhancement (series 3 image41), without definite focal fluid, measures 2.5 x 1.9 cm versus 3.6 x 2.9 cm previously at a similar location. Mildly dilated adjacent posterior rightlobe bile ducts have decreased in size. No new hepatic lesions. Stable mild prominence of intrahepatic ducts inthe left lobe. Portal and hepatic veins are patent. Small amount of gas withinthe pancreatic duct. Small-mildly prominent bilateral pelvic lymph nodes are unchanged inappearance, the largest a left external iliac node measuring 10 mm in short axisdiameter (series 3 image 106). Right renal cyst. Aortoiliac atherosclerosis.Colonic diverticulosis. Degenerative changes lumbar spine. Mild prostaticenlargement. Minimal linear atelectasis in the lung bases. IMPRESSION: Continued improvement in the right hepatic lobe abscess, with mild residual hypoenhancement. Raman FISHER CT PROCEDURES Fi nal Result * ALT (Alanine Aminotransferase) (02/09/2019 8:08 AM CDT) Only the most recent of9 resultswithin the time period is included. Alanine Aminotransferase (ALT), S 53 7 - 55 U/L 02/09/2019 9:24 AM CDT Blood (Blood, Venous) 02/09/2019 8:08 AM CDT 02/09/2019 8:13 AM CDT us Kym SHRESTHA P.A.-C., M.S. LAB BLOOD ADD-ON Final Result [facility] [address] [place] [address], [facility] * Alkaline Phosphatase (02/09/2019 8:08 AM CDT) Only the most recent of7 resultswithin the time period is included. Alkaline Phosphatase, S 79 40 - 129 U/L 02/09/2019 9:24 AM CDT Blood (Blood, Venous) 02/09/2019 8:08 AM CDT 02/09/2019 8:13 AM CDT us Kym SHRESTHA, P.A.-C., M.S. LAB BLOOD ADD-ON Final Result [facility] [address] [place] [address], [facility] * MR Cervical Spine without and with IV Contrast (01/17/2019 10:44 AM CDT) Anatomical Region Laterality Modality Spine, Cervical Spine, Neuro radiology RST LOS, Neuroradiology ARZ LOS, Neuroradiology FLA LOS N/A Magneti c Resonance 01/17/2019 12:2 2 PM CDT Impressions 01/17/2019 12:31 PM CDT 1. No evidence of epidural fluid collection or abscess. 2. No significant spinal canal stenosis. 3. Small effusion of the right C3-4 facet with periarticular T2 hyperintense edema and enhancement. This is very likely related to active inflammation in the setting of facet arthropathy. Facet arthritis due to infection is not excluded. No evidence of destructive changes. 4. Absence of the right vertebral artery flow-void may represent occlusion or slow flow. Consider further evaluation with ultrasound if indicated. Narrative 01/17/2019 12:31 PM CDT EXAM: MR CERVICAL SPINE WITHOUT AND WITH IV CONTRAST COMPARISON: None FINDINGS: No evidence of an epidural fluid collection or abscess. Skull base-C2: The spinal canal is patent. C2-3: The spinal canal and neuroforamina are patent. C3-4: The spinal canal is patent. Small disc bulge and mild ligamentum flavum hypertrophy. Uncovertebral hypertrophy and facet arthropathy result in mild bilateral neural foraminal narrowing. There is T2 hyperintense edema and enhancement about the right C3-4 facet compatible with acute inflammation. There is a small facet joint effusion. C4-5: Disc bulging, uncovertebral hypertrophy, and ligamentum flavum hypertrophy result in mild spinal canal stenosis. Uncovertebral hypertrophy and facet arthropathy result in mild bilateral neural foraminal narrowing. C5-6: The spinal canal and neural foramina are patent. Mild uncovertebral hypertrophy and facet arthropathy. C6-7: The spinal canal and neural foramina are patent. C7-T1: The spinal canal and neural foramina are patent. Alignment: Normal Bone Marrow: Normal Extra-spinal Findings: Absence of the right vertebral artery flow-void. Procedure Note Paul Elliott M.D. - 01/17/2019 EXAM: MR CERVICAL SPINE WITHOUT AND WITH IV CONTRAST COMPARISON: None FINDINGS: No evidence of an epidural fluid collection or abscess. Skull base-C2: The spinal canal is patent. C2-3: The spinal canal and neuroforamina are patent. C3-4: The spinal canal is patent. Small disc bulge and mild ligamentumflavum hypertrophy. Uncovertebral hypertrophy and facet arthropathy result inmild bilateral neural foraminal narrowing. There is T2 hyperintense edema and enhancement about the right C3-4 facet compatible with acute inflammation.There is a small facet joint effusion. C4-5: Disc bulging, uncovertebral hypertrophy, and ligamentum flavum hypertrophy result in mild spinal canal stenosis. Uncovertebralhypertrophy and facet arthropathy result in mild bilateral neural foraminal narrowing. C5-6: The spinal canal and neural foramina are patent. Milduncovertebral hypertrophy and facet arthropathy. C6-7: The spinal canal and neural foramina are patent. C7-T1: The spinal canal and neural foramina are patent. Alignment: Normal Bone Marrow: Normal Extra-spinal Findings: Absence of the right vertebral artery flow-void. IMPRESSION: 1. No evidence of epidural fluid collection or abscess. 2. No significant spinal canal stenosis. 3. Small effusion of the right C3-4 facet with periarticular [id number] edema and enhancement. This is very likely related to active inflammationin the setting of facet arthropathy. Facet arthritis due to infection is notexcluded. No evidence of destructive changes. 4. Absence of the right vertebral artery flow-void may represent occlusionor slow flow. Consider further evaluation with ultrasound if indicated. Raman Croft M.D. IMG MRI PROCEDURES F inal Result * Bacteria / Nargis Culture, Blood #1 (01/16/2019 3:45 PM CDT) Only the most recent of4 resultswithin the time period is included. Bacteria/Isela da Culture, Blood No growth after 5 days of incubation. 01/21/2019 5:02 PM CDT Blood (Blood, PICC) 01/16/2019 3:45 PM CDT 01/16/2019 4:20 PM CDT Comment:Specimen Source Site : [facility] - 01/21/2019 5:02 PM CDT Specimen Information: Specimen ID: [id number] Specimen Source: Blood, PICC Specimen Comment: Specimen Source Site: picc Specimen Collection Start Date: 01/16/2019 3:45 PM Specimen Received Date: 01/16/2019 4:20 PM Specimen ID: [id number] Specimen Source: Blood, PICC Specimen Comment: Specimen Source Site: picc Specimen Collection Start Date: 01/16/2019 3:45 PM Specimen Received Date: 01/16/2019 4:20 PM Specimen ID: [id number] Specimen Source: Blood, PICC Specimen Comment: Specimen Source Site: picc Specimen Collection Start Date: 01/16/2019 3:45 PM Specimen Received Date: 01/16/2019 4:20 PM Raman Croft M.D. LAB MICROBIOLOGY - G ENERAL ORDERABLES Final Result [facility] [address] [place] [address], [facility] * IR Abscess Drain Removal (01/11/2019 11:51 AM CDT) Anatomical Region Laterality Modality Body, Vascular Interventiona l RST LOS, Vascular Interventional ARZ LOS, Vascular Interventional FLA LOS N/A X-Ray Angiography 01/11/2019 12:1 9 PM CDT Impressions 01/11/2019 12:36 PM CDT Cavity has resolved. Drain removed. EP Narrative 01/11/2019 12:36 PM CDT EXAM: IR ABSCESS DRAIN REMOVAL CLINICAL HISTORY: No output from the drain for at least 24 hours. TECHNIQUE: With the patient in a supine position, diagnostic sinogram was performed through the right abdominal drain which demonstrates patency of the drain and no cavity. Therefore, the catheter was removed entirely without complication. PREPROCEDURE: Patient seen, evaluated, and history reviewed. Discussed risks, benefits, alternatives for procedure, and obtained informed consent. Patient understands information and questions answered. Immediately prior to starting the procedure, in the presence of the assisting personnel, procedural pause was conducted to verify correct patient identity and verification of procedure to be performed, and as applicable, correct side and site, correct patient position, availability of implants, special equipment, or special requirements, and all image and specimen identification data. The roles and responsibilities of care team members, residents, and fellows were discussed. Procedure Note Jayshree Blanca M.D. - 01/11/2019 EXAM: IR ABSCESS DRAIN REMOVAL CLINICAL HISTORY: No output from the drain for at least 24 hours. TECHNIQUE: With the patient in a supine position, diagnostic sinogramwas performed through the right abdominal drain which demonstrates patency ofthe drain and no cavity. Therefore, the catheter was removed entirelywithout complication. PREPROCEDURE: Patient seen, evaluated, and history reviewed. Discussedrisks, benefits, alternatives for procedure, and obtained informed consent.Patient understands information and questions answered. Immediately prior tostarting the procedure, in the presence of the assisting personnel, proceduralpause was conducted to verify correct patient identity and verification of procedureto be performed, and as applicable, correct side and site, correct patientposition, availability of implants, special equipment, or special requirements, andall image and specimen identification data. The roles and responsibilities ofcare team members, residents, and fellows were discussed. IMPRESSION: Cavity has resolved. Drain removed. EP Sade Vera APRN, C.N.P. IMG IR PROCEDURES Fi nal Result * Tick-Borne Ab Panel (01/10/2019 9:43 AM CDT) Lyme Disease Serology, S Negative Negative 01/11/2019 1:05 PM CDT Comment: No evidence of antibodies to B. burgdorferi detected. False negative results may occur in recently infected patients (<=2 weeks) due to low or undetectable antibody levels to B. burgdorferi. If recent exposure is suspected, a second sample should be collected and tested in 2-4 weeks. Anaplasma phagocytophilum Ab, IgG,S <1:64 <1:64 titer 01/11/2019 4:37 PM CDT Comment: ----ADDITIONAL INFORMATION---- This test was developed using an analyte specific reagent. Its performance characteristics were determined by [facility] in a manner consistent with CLIA requirements. This test has not been cleared or approved by the U.S. Food and Drug Administration. Ehrlichia Chaffeensis ([facility]) Ab, IgG <1:64 <1:64 titer 01/11/2019 4:39 PM CDT Comment: ----ADDITIONAL INFORMATION---- This test was developed using an analyte specific reagent. Its performance characteristics were determined by [facility] in a manner consistent with CLIA requirements. This test has not been cleared or approved by the U.S. Food and Drug Administration. Babesia microti IgG Ab, S <1:64 <1:64 titer 01/12/2019 10:14 AM CDT Comment: ----ADDITIONAL INFORMATION---- This test was developed using an analyte specific reagent. Its performance characteristics were determined by [facility] in a manner consistent with CLIA requirements. This test has not been cleared or approved by the U.S. Food and Drug Administration. Blood (Blood, Venous) 01/10/2019 9:43 AM CDT 01/11/2019 7:06 AM CDT us Brennan Pepper APRN CMeyNJenny LAB MICROBIOLOGY - B LOOD ORDERABLES Final Result [facility] [address] [place] [address] * IR Abscess Drain Exchange (01/04/2019 1:31 PM CDT) Anatomical Region Laterality Modality Body, Vascular Interventiona l RST LOS, Vascular Interventional ARZ LOS, Vascular Interventional FLA LOS N/A X-Ray Angiography 01/04/2019 2:52 PM CDT Impressions 01/04/2019 2:53 PM CDT Successful right lobe catheter change. NR Narrative 01/04/2019 2:53 PM CDT EXAM: IR ABSCESS DRAIN EXCHANGE CLINICAL HISTORY: Patient with abscess tube and the right lobe of the liver. Here for further evaluation. TECHNIQUE: Supervisor Firearms film was obtained. The tube was injected and found to be 6 occluded. The skin overlying the tube was prepped and draped usual sterile fashion. The tube was removed over an LR torque wire and a new 10 Slovenian tube was placed. There is a multiseptated collection within the right lower lobe of the liver. This communicates with the hepatic vein. Patient instructed to flush the tube twice a day 3 cc. Follow-up in 7-10 days is recommended. PREPROCEDURE: Patient seen, evaluated, and history reviewed. Discussed risks, benefits, alternatives for procedure, and obtained informed consent. Patient understands information and questions answered. Immediately prior to starting the procedure, in the presence of the assisting personnel, procedural pause was conducted to verify correct patient identity and verification of procedure to be performed, and as applicable, correct side and site, correct patient position, availability of implants, special equipment, or special requirements, and all image and specimen identification data. The roles and responsibilities of care team members, residents, and fellows were discussed. Procedure Note Roel Kellogg M.D. - 01/04/2019 EXAM: IR ABSCESS DRAIN EXCHANGE CLINICAL HISTORY: Patient with abscess tube and the right lobe of theliver. Here for further evaluation. TECHNIQUE: Supervisor Firearms film was obtained. The tube was injected and found to be6 occluded. The skin overlying the tube was prepped and draped usualsterile fashion. The tube was removed over an LR torque wire and a new 10 Frenchtube was placed. There is a multiseptated collection within the right lowerlobe of the liver. This communicates with the hepatic vein. Patient instructed toflush the tube twice a day 3 cc. Follow-up in 7-10 days is recommended. PREPROCEDURE: Patient seen, evaluated, and history reviewed. Discussedrisks, benefits, alternatives for procedure, and obtained informed consent.Patient understands information and questions answered. Immediately prior tostarting the procedure, in the presence of the assisting personnel, proceduralpause was conducted to verify correct patient identity and verification of procedureto be performed, and as applicable, correct side and site, correct patientposition, availability of implants, special equipment, or special requirements, andall image and specimen identification data. The roles and responsibilities ofcare team members, residents, and fellows were discussed. IMPRESSION: Successful right lobe catheter change. NR Leann Smith APRN, C.N.P., M.S.N. IMG IR PROCEDUR ES Final Result * IR Abscess Drain Check (12/26/2018 1:17 PM CDT) Anatomical Region Laterality Modality Body, Vascular Interventiona l RST LOS, Vascular Interventional ARZ LOS, Vascular Interventional FLA LOS N/A X-Ray Angiography 12/26/2018 3:04 PM CDT Impressions 12/26/2018 3:24 PM CDT Small intrahepatic collection adequately controlled by existing 10 F drain. Flush catheter with 3 cc of normal saline in and out twice daily. We will consider drain removal if drain output continues to decrease on the next sinogram to be scheduled in about a week. EP Narrative 12/26/2018 3:24 PM CDT EXAM: IR ABSCESS DRAIN CHECK CLINICAL HISTORY: Intrahepatic collection. Minimal output. TECHNIQUE: Initial camp assistant image demonstrated a right upper quadrant pigtail catheter. Diagnostic sinogram demonstrated small multi septated intrahepatic collection. The existing catheter was irrigated with normal saline. The catheter demonstrated satisfactory position and drainage. No immediate complication. PREPROCEDURE: Patient seen, evaluated, and history reviewed. Discussed risks, benefits, alternatives for procedure, and obtained informed consent. Patient understands information and questions answered. Immediately prior to starting the procedure, in the presence of the assisting personnel, procedural pause was conducted to verify correct patient identity and verification of procedure to be performed, and as applicable, correct side and site, correct patient position, availability of implants, special equipment, or special requirements, and all image and specimen identification data. The roles and responsibilities of care team members, residents, and fellows were discussed. Procedure Note Jayshree Blanca M.D. - 12/26/2018 EXAM: IR ABSCESS DRAIN CHECK CLINICAL HISTORY: Intrahepatic collection. Minimal output. TECHNIQUE: Initial camp assistant image demonstrated a right upper quadrantpigtail catheter. Diagnostic sinogram demonstrated small multi septatedintrahepatic collection. The existing catheter was irrigated with normal saline. Thecatheter demonstrated satisfactory position and drainage. No immediatecomplication. PREPROCEDURE: Patient seen, evaluated, and history reviewed. Discussedrisks, benefits, alternatives for procedure, and obtained informed consent.Patient understands information and questions answered. Immediately prior tostarting the procedure, in the presence of the assisting personnel, proceduralpause was conducted to verify correct patient identity and verification of procedureto be performed, and as applicable, correct side and site, correct patientposition, availability of implants, special equipment, or special requirements, andall image and specimen identification data. The roles and responsibilities ofcare team members, residents, and fellows were discussed. IMPRESSION: Small intrahepatic collection adequately controlled by existing 10 F drain. Flush catheter with 3 cc of normal saline in and out twice daily.We will consider drain removal if drain output continues to decrease on the next sinogram to be scheduled in about a week. EP us Marah Lamb APRN, C.N.P. IMG IR PROCEDURES Fin al Result * US Liver Drainage with Imaging Guidance (12/20/2018 3:21 PM CDT) Anatomical Region Laterality Modality Abdomen, Ultrasound RST LOS, Ultrasound ARZ LOS, Vascular Interventional FLA LOS, Procedural N/A Ultrasound 12/20/2018 3:02 PM CDT Impressions 12/20/2018 3:25 PM CDT 1. Ultrasound-guided placement of a 10 Slovenian catheter into the right hepatic lobe fluid collection. 2. Flush and aspirate the drainage catheter with 10 ml of sterile saline 2 times per day. 3. Consider a sinogram in vascular interventional radiology in a few days to assess catheter. NR Narrative 12/20/2018 3:25 PM CDT EXAM: US LIVER DRAINAGE WITH IMAGING GUIDANCE PRE-PROCEDURE: Patient seen, evaluated, and history reviewed. Discussed risks, benefits, alternatives for procedure, and obtained informed consent. Patient understands information and questions answered. Immediately prior to starting the procedure, in the presence of the assisting personnel, procedural pause was conducted to verify correct patient identity and verification of procedure to be performed, and as applicable, correct side and site, correct patient position, availability of implants, special equipment, or special requirements, and all image and specimen identification data. The roles and responsibilities of care team members, residents, and fellows were discussed. TECHNIQUE: Sterile. 1% lidocaine for local anesthesia. Location: Right hepatic lobe fluid collection Drainage catheter size: 10 Slovenian Volume aspirated: 6 cc sanguinous fluid was aspirated Complication: None. Blood loss: None. PATIENT INSTRUCTIONS: Patient may be dismissed from the radiology department when dismissal criteria met. POST-PROCEDURE DIAGNOSIS: Right hepatic lobe fluid collection Procedure Note Garrett Archuleta M.D. - 12/20/2018 EXAM: US LIVER DRAINAGE WITH IMAGING GUIDANCE PRE-PROCEDURE: Patient seen, evaluated, and history reviewed. Discussedrisks, benefits, alternatives for procedure, and obtained informed consent.Patient understands information and questions answered. Immediately prior tostarting the procedure, in the presence of the assisting personnel, proceduralpause was conducted to verify correct patient identity and verification of procedureto be performed, and as applicable, correct side and site, correct patientposition, availability of implants, special equipment, or special requirements, andall image and specimen identification data. The roles and responsibilities ofcare team members, residents, and fellows were discussed. TECHNIQUE: Sterile. 1% lidocaine for local anesthesia. Location: Right hepatic lobe fluid collection Drainage catheter size: 10 Slovenian Volume aspirated: 6 cc sanguinous fluid was aspirated Complication: None. Blood loss: None. PATIENT INSTRUCTIONS: Patient may be dismissed from the radiologydepartment when dismissal criteria met. POST-PROCEDURE DIAGNOSIS: Right hepatic lobe fluid collection IMPRESSION: 1. Ultrasound-guided placement of a 10 Slovenian catheter into the righthepatic lobe fluid collection. 2. Flush and aspirate the drainage catheter with 10 ml of sterile saline 2times per day. 3. Consider a sinogram in vascular interventional radiology in a few daysto assess catheter. NR us Marah Lamb APRN C.N.PMey IMG US PROCEDURES Fin al Result * Place peripherally inserted central catheter (PICC) (12/19/2018 12:48 PM CDT) Narrative MMODAL - 12/19/2018 12:48 PM CDT Estrella Hanna R.N. 12/19/2018 12:[address] peripherally inserted central catheter (PICC) Date/Time: 12/19/2018 12:48 PM Performed by: Estrella Hanna R.N. Authorized by: Marah Lamb APRN C.N.PMey Care team members present 1. Estrella Hanna R.N. 2. Jordan Scott R.N. PROCEDURE DETAILS Select Line: PICC Line Size: 4.0 FR Catheter to vain ration less than 45%: Yes Adult or [place]ito/Peds: Adult # of Lumens: Single lumen Type of Catheter: Power injectable and valved Laterality: Left IV Location: Basilic Optimal site selected: Yes Blood Return: Yes Placement Assistance: ECG guidance and ultrasound guided Tip Verification: ECG Catheter Length (cm): 40 Initial Exposed Catheter (cm): 1 Mid Upper Arm Circumference (cm): 29 All lumens flushed (Document volume in I/O): yes CONSENT Consent obtained: written UNIVERSAL PROTOCOL All relevant documentation and testing were reviewed and available. All required blood products, implants, devices and or special equipment were made available as applicable. Pre-procedure verification was conducted and the correct site was marked if required. A fire risk assessment was done as applicable. The procedural time-out was conducted prior to performing the procedure and confirmed in a procedural pause. PRE PROCEDURE DETAILS Indications: Needed after discharge for ongoing care Appropriate hand hygiene, gown, cap, mask, protective eyewear, sterile gloves, skin preparation, sterile drape, and strict aseptic technique were utilized as applicable for the procedure.: yes Site preparation: Chlorhexidine SEDATION / ANESTHESIA Anesthesia method: local infiltration Local infiltrate type: lidocaine POST PROCEDURE DETAILS Procedure completed successfully: yes Complications: no apparent complications us Marah Lamb APRN, C.N.P. PROCEDURE/MINOR SURGI HIEU ORDERABLES Final Result Performing Organization Address City/[facility]/ZIP Co de Phone Number MMODAL NA * (ABNORMAL) CBC without Differential (12/19/2018 7:54 AM CDT) Only the most recent of6 resultswithin the time period is included. Hemoglobin 12.5(L) 13.2 - 16.6 g/dL 12/19/2018 8:26 AM CDT Hematocrit 37.9(L) 38.3 - 48.6 % 12/19/2018 8:26 AM CDT Erythrocytes 4.08(L) 4.35 - 5.65 x10(12)/L 12/19/2018 8:26 AM CDT MCV 92.9 78.2 - 97.9 fL 12/19/2018 8:26 AM CDT RBC Distrib Width 11.9 11.8 - 14.5 % 12/19/2018 8:26 AM CDT Platelet Count 419(H) 135 - 317 x10(9)/L 12/19/2018 8:26 AM CDT Leukocytes 8.3 3.4 - 9.6 x10(9)/L 12/19/2018 8:26 AM CDT Blood (Blood, Venous) 12/19/2018 7:54 AM CDT 12/19/2018 8:06 AM CDT us Marah Lamb APRN, C.N.P. LAB BLOOD ADD-ON Lakisha l Result [place] [id number] * [place] Fluoro Less Than 1 Hour (12/18/2018 2:31 PM CDT) Narrative ERCP LOS RST - 12/18/2018 2:39 PM CDT This exam does not require a radiologist review or interpretation. Please refer to the patient's medical record on this date for clinical details. Marah Lamb APRN C.N.PMey IMG FLUOROSCOPY PROCE MISA Final Result ERCP LOS RST * LDA ANE ENDOTRACHEAL AIRWAY (12/18/2018 1:58 PM CDT) Narrative Jon Lundberg APRN, CRNA - 12/18/2018 1:58 PM CDT Jon Lundberg APRN, CRNA 12/18/2018 1:59 PM Airway Date/Time: 12/18/2018 1:56 PM Performed by: Jon Lundberg APRN, CRNA Authorized by: Jon Lundberg APRN, CRNA Patient location during procedure: OR / Procedure Area PROCEDURE DETAILS: Mask difficulty assessment: not attempted Final airway type: direct laryngoscopy, intubation Laryngeal Manipulation: no Final airway difficulty of direct laryngoscopy (DL): 0-easy Final best view of glottic structures - Cormack/Lehane Score: grade 1 ETT location: oral Adult blade type: Alcantara 2 Adult tube size: 7 Adult ETT distance at teeth/gum: 22 Oral tube type: standard ETT Cuffed: yes Number of attempt to successful placement: 1 Airway confirmation: bilateral breath sounds, positive ETCO2 and bilateral chest rise Other previous techniques attempted: none PRE PROCEDURE DETAILS: Pre evaluation for airway management: procedure Urgency: elective Preop assessment of probable difficulty: no difficulty anticipated Sedation level: anesthetized Preoxygenation: bag valve mask SEDATION / ANESTHESIA Anesthesia method: none POST PROCEDURE DETAILS: Procedure outcome: successful Airway event: no complications Jon Lundberg APRN, CRNA ANESTHESIA ORDERABLES Final Result * ERCP (12/18/2018 12:55 PM CDT) 12/18/2018 12:5 5 PM CDT Impressions ROBERTO PROVATION - 12/18/2018 3:28 PM CDT Post-op Diagnoses: - Diffuse dilation of extrahepatic biliary tree wihtout obstruction or evident stones. 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 - Mild dilatation of the ventral pancreatic duct in the head of the pancreas was found. Narrative MEJIA PROVATION - 12/18/2018 3:28 PM CDT Reji 6 GI GI Patient Name: Gustabo Zamarripa Date of : 1945 Age: 73 Gender: Male Procedure Date: 12/18/2018 Procedure: ERCP Providers: Kalia Carter MD Referring Provider: Marah Lamb Pre-op Diagnoses: Suspected ascending cholangitis, hepatic abscess Recommendation: - Return [facility] to [facility] for [facility] care. Findings: The camp assistant film was normal. The upper GI tract was traversed under direct vision without detailed examination. The major papilla was initially challenging to locate, as it was positioned very proximally in the angle between the duodenal bulb and the second portion. There was no papillary structure to speak of. The pancreatic and biliary openings were separate by 5-7 mm and drained through lax openings in the flat mucosal surface. The mucosa in the area was bland and perhaps mildly eroded but not grossly ulcerated. The ventral pancreatic duct and the bile duct were each deeply cannulated with the short-nosed traction sphincterotome. Contrast was injected in each. I personally interpreted the images. There was appropriate flow of contrast through the ducts. Image quality was adequate. Contrast extended to the pancreatic body, with evidence of a generous but non-obstructed ventral duct and uncinate side branch. The Navipro short slippery guidewire was passed into the biliary tree and contrast injection into the biliary tree demonstrated a dilated cystic duct, gallbladder and main extrahepatic duct. The intrahepatic ducts were largely normal. No strictures, stones, extravasation, or extraductal communications were seen in any area. Specifically no communication was noted near the lateral hepatic abscess. Drainage was reasonably prompt. No therapies were employed. Procedural Details: The patient was seen, evaluated, history reviewed, airway and heart-lung exams were performed by licensed provider and were satisfactory for planned level of sedation care. The risks, benefits and alternatives for the procedure and sedation were discussed and informed consent was obtained. A procedural pause was conducted in the presence of assisting personnel to verify the correct patient identity and procedure to be performed. Throughout the procedure, the patient's blood pressure, pulse, and oxygen saturations were monitored continuously. The Duodenoscope was introduced under direct vision through the mouth, and used to inject contrast into the bile, dorsal and ventral pancreatic ducts. The patient tolerated the procedure well. Complications: No immediate complications. Sedation: General director ship Participation: I personally performed the entire procedure. Kalia Carter MD 12/18/2018 3:28:34 PM This report has been signed electronically. Number of Addenda: 0 us Marah Fischer Amisha Lamb APRNNJenny GI PROCEDURE ORDERABL ES Final Result MEJIA PROVATION NA * ERCP-Gastroenterology Image Exam (12/18/2018 12:55 PM CDT) 12/18/2018 12:5 5 PM CDT Narrative IIMS - 12/18/2018 3:38 PM CDT This order has been created and auto-finalized to support the import of images acquired without order. The clinical documentation to support these images can be found on the encounter that produced images. us Provider Not In System IMG NON RAD IMAGING PROCE DURES Final Result Performing Organization Address [facility] Co de Phone Number IINV NA * US Liver Aspiration with Image Guidance (12/18/2018 10:47 AM CDT) Anatomical Region Laterality Modality Abdomen, Ultrasound RST LOS, Ultrasound ARZ LOS, Vascular Interventional FLA LOS, Procedural N/A Ultrasound 12/18/2018 10:5 4 AM CDT Impressions 12/18/2018 10:57 AM CDT Ultrasound-guided right hepatic lobe abscess aspiration. NR Narrative 12/18/2018 10:57 AM CDT EXAM: US LIVER ASPIRATION WITH IMAGE GUIDANCE PRE-PROCEDURE: Patient seen, evaluated, and history reviewed. Discussed risks, benefits, alternatives for procedure, and obtained informed consent. Patient understands information and questions answered. Immediately prior to starting the procedure, in the presence of the assisting personnel, procedural pause was conducted to verify correct patient identity and verification of procedure to be performed, and as applicable, correct side and site, correct patient position, availability of implants, special equipment, or special requirements, and all image and specimen identification data. The roles and responsibilities of care team members, residents, and fellows were discussed. TECHNIQUE: Sterile. 1% lidocaine for local anesthesia. Location: Ill-defined heterogeneous fluid collection in the right hepatic lobe as seen on image 42 of series [address] from 12/15/2018 Needle/catheter size: 17-gauge introducer. Volume aspirated: 50 mL of thick yellow, slightly bloody, purulent appearing fluid were aspirated Complication: None. Blood loss: None. PATIENT INSTRUCTIONS: Patient may be dismissed from the radiology department when dismissal criteria met. POST-PROCEDURE DIAGNOSIS: Hepatic abscess. Procedure Note Hero Schmid M.D. - 12/18/2018 EXAM: US LIVER ASPIRATION WITH IMAGE GUIDANCE PRE-PROCEDURE: Patient seen, evaluated, and history reviewed. Discussed risks,benefits, alternatives for procedure, and obtained informed consent. Patientunderstands information and questions answered. Immediately prior to starting theprocedure, in the presence of the assisting personnel, procedural pause was conductedto verify correct patient identity and verification of procedure to beperformed, and as applicable, correct side and site, correct patient position,availability of implants, special equipment, or special requirements, and all imageand specimen identification data. The roles and responsibilities of careteam members, residents, and fellows were discussed. TECHNIQUE: Sterile. 1% lidocaine for local anesthesia. Location: Ill-defined heterogeneous fluid collection in the right hepaticlobe as seen on image 42 of series [address] from 12/15/2018 Needle/catheter size: 17-gauge introducer. Volume aspirated: 50 mL of thick yellow, slightly bloody, purulentappearing fluid were aspirated Complication: None. Blood loss: None. PATIENT INSTRUCTIONS: Patient may be dismissed from the radiologydepartment when dismissal criteria met. POST-PROCEDURE DIAGNOSIS: Hepatic abscess. IMPRESSION: Ultrasound-guided right hepatic lobe abscess aspiration. NR us Tia Landa P.A.-C. IMG US PROCEDURES Fi nal Result * Cytology Fine Needle Aspiration (including core biopsies) (12/18/2018 10:35 AM CDT) Gross Description Received 35 cc of bloody/thick fluid. 12/19/2018 4:11 PM CDT Source A. Liver, fine needle aspiration 12/19/2018 4:11 PM CDT Report electronically signed by [place] M.D. [id number] I verify that I have examined all relevant slides/materi als for the specimen(s) and rendered or confirmed the diagnosis. 12/19/2018 4:11 PM CDT 12/19/2018 4:11 PM CDT Interpretation A. Liver, fine needle aspiration (ThinPrep): Negative for malignancy. Acute inflammation. consistent with abscess. 12/19/2018 4:11 PM CDT Varies 12/18/2018 10:3 5 AM CDT 12/18/2018 2:50 PM CDT Marcia Schaefer M.D., Ph.D. LAB SURG PATH OR DERABLES Final Result Performing Organization Address City/[facility] Co de Phone Number [facility] [address] * (ABNORMAL) Bacterial Culture, Aerobic + Susc (12/18/2018 10:30 AM CDT) Bacterial Culture, Aerobic + Susc STREPTOCOCCUS INTERMEDIUS 3+ Semi-Urgent Result. (A) 12/21/2018 3:09 PM CDT Semi-Urgent This is a semi-urgent result(BIANCHI) [facility] Fluid (Liver) 12/18/2018 10: 30 AM CDT 12/18/2018 11:20 AM CDT Comment:Specimen Source Site : Fluid Narrative Organism Antibiotic Method Susceptibility Streptococcus intermedius Penicillin SUSCEP TIBILITY, ARNIE (MCG/ML) <=0.06 mcg/mL: Susceptible Streptococcus intermedius Vancomycin SUSCEP TIBILITY, ARNIE (MCG/ML) <=1 mcg/mL: Susceptible Streptococcus intermedius Ceftriaxone SUSCEP TIBILITY, ARNIE (MCG/ML) <=0.5 mcg/mL: Susceptible Streptococcus intermedius Erythromycin SUSCEP TIBILITY, ARNIE (MCG/ML) <=0.25 mcg/mL: Susceptible Streptococcus intermedius Levofloxacin SUSCEP TIBILITY, ARNIE (MCG/ML) <=2 mcg/mL: Susceptible us Tia Landa P.A.-C. LAB MICROBIOLOGY - G ENERAL ORDERABLES Final Result Performing Organization Address City/State/[facility] Co de Phone Number [facility] [address] * Fungal Smear (12/18/2018 10:30 AM CDT) Fungal Smear Negative. 12/18/2018 3:24 PM CDT Fluid (Liver) 12/18/2018 10: 30 AM CDT 12/18/2018 11:20 AM CDT Comment:Specimen Source Site : Fluid us Tia SpencerCMey LAB MICROBIOLOGY - G ENERAL ORDERABLES Final Result Performing Organization Address [facility] Co de Phone Number [facility] [address] * (ABNORMAL) Gram Stain (12/18/2018 10:30 AM CDT) Gram Stain White blood cells,Many.(A) 12/18/2018 12:56 PM CDT Gram Stain GRAM POSITIVE COCCUS RESEMBLING STREPTOCOCCUS Few. (A) 12/18/2018 12:56 PM CDT Fluid (Liver) 12/18/2018 10: 30 AM CDT 12/18/2018 11:20 AM CDT Comment:Specimen Source Site : Fluid us Tia SpencerCMey LAB MICROBIOLOGY - G ENERAL ORDERABLES Final Result Performing Organization Address [facility] Co de Phone Number [facility] [address] * Fungal Culture, Routine (12/18/2018 10:30 AM CDT) Fungal Culture, Routine No growth after 24 days of incubation. 01/11/2019 1:01 PM CDT Fluid (Liver) 12/18/2018 10: 30 AM CDT 12/18/2018 11:20 AM CDT Comment:Specimen Source Site : Fluid Tia Rivas.MikeC. LAB MICROBIOLOGY - G ENERAL ORDERABLES Final Result Performing Organization Address City/[facility]/ZIP Co de Phone Number [facility] [address] * Bacterial Culture, Anaerobic + Susc (12/18/2018 10:30 AM CDT) Bacterial Culture, Anaerobic + Susc No growth after 14 days of incubation. 01/01/2019 9:57 AM CDT Fluid (Liver) 12/18/2018 10: 30 AM CDT 12/18/2018 11:20 AM CDT Comment:Specimen Source Site : Fluid us Tia Landa P.A.-C. LAB MICROBIOLOGY - G ENERAL ORDERABLES Final Result Performing Organization Address [facility] Co de Phone Number [facility] [address] * (ABNORMAL) Hepatic Function Panel (12/17/2018 6:27 AM CDT) Only the most recent of2 resultswithin the time period is included. Bilirubin, Total, S 0.9 <=1.2 mg/dL 12/17/2018 7:44 AM CDT Bilirubin, Direct, S 0.4(H) 0.0 - 0.3 mg/dL 12/17/2018 7:44 AM CDT Aspartate Aminotransferase (AST), S 56(H) 8 - 48 U/L 12/17/2018 7:44 AM CDT Alanine Aminotransferase (ALT), S 50 7 - 55 U/L 12/17/2018 7:44 AM CDT Alkaline Phosphatase, S 123 40 - 129 U/L 12/17/2018 7:44 AM CDT Albumin, S 3.0(L) 3.5 - 5.0 g/dL 12/17/2018 7:44 AM CDT Protein, Total, S 5.7(L) 6.3 - 7.9 g/dL 12/17/2018 7:44 AM CDT Blood (Blood, Venous) 12/17/2018 6:27 AM CDT 12/17/2018 6:51 AM CDT us Tia Landa P.A.-C. LAB BLOOD ADD-ON Fin al Result Performing Organization Address [facility] Co de Phone Number [address] * (ABNORMAL) PT (Prothrombin Time) with INR (12/16/2018 3:20 PM CDT) Prothrombin Time, P 15.6(H) 9.4 - 12.5 sec 12/16/2018 3:35 PM CDT INR 1.4 0.9 - 1.1 12/16/2018 3:35 PM CDT Comment: ----ADDITIONAL INFORMATION---- Standard intensity warfarin therapeutic range: 2.0 to 3.0 High intensity warfarin therapeutic range: 2.5 to 3.5 Blood (Blood, Venous) 12/16/2018 3:20 PM CDT 12/16/2018 3:26 PM CDT Tia Landa P.A.-C. LAB BLOOD ADD-ON Fin al Result Performing Organization Address [facility] de Phone Number [facility] [address] * AFP (Alpha-Fetoprotein), Tumor Marker (12/16/2018 12:52 AM CDT) Pathologist [facility] Alpha-Fetoprotein, Tumor Marker, S 0.9 <6.0 ng/mL 12/16/2018 11:35 AM CDT Comment: ----ADDITIONAL INFORMATION---- The testing method is an immunoenzymatic assay manufactured by [employer] and performed on the [employer] DxI 800. Values obtained with different assay methods or kits may be different and cannot be used interchangeably. Test results cannot be interpreted as absolute evidence for the presence or absence of malignant disease. Alpha-Fetoprotein values are not interpretable in females for the investigation of malignant disease. Blood (Blood, Venous) 12/16/2018 12:52 AM CDT 12/16/2018 10:12 AM CDT Cece Mcgowan M.D. LAB BLOOD ADD-ON Final Res ult Performing Organization Address [facility] Co de Phone Number [facility] [address] [place] [address] * (ABNORMAL) Dipstick, POCT, Urine (12/15/2018 8:54 PM CDT) Glucose, POCT, U Negative Negative 12/15/2018 8:56 PM CDT POC T [facility] Ketone, POCT, U Negative Negative mL 12/15/2018 8:56 PM CDT POC T [facility] Specific Carrier, POCT, U 1.010 1.001 - 1.035 12/15/2018 8:56 PM CDT POC T [facility] Blood, POCT, U Negative Negative 12/15/2018 8:56 PM CDT POC T [facility] pH, POCT, Urine 5.5 5.0 - 8.0 12/15/2018 8:56 PM CDT POC [facility] Protein, POCT, U 100(A) Negative 12/15/2018 8:56 PM CDT POC T [facility] Nitrites, POCT, U Negative Negative 12/15/2018 8:56 PM CDT POC [facility] Leukocytes, POCT, U Negative Negative 12/15/2018 8:56 PM CDT POC T [facility] Urine 12/15/2018 8:54 PM CDT 12/15/2018 8:57 PM CDT us Unknown Provider LAB POCT ORDERABLES - DEVICE Fi nal Result Performing Organization Address [facility] Co de Phone Number POC T [facility] [address] [place] [address], [facility] * Microscopic Manual (12/15/2018 8:52 PM CDT) Microscopy Normal 12/15/2018 9:39 PM CDT [facility] RBC <3 <3 /hpf 12/15/2018 9:39 PM CDT [facility] Urine 12/15/2018 8:52 PM CDT 12/15/2018 9:17 PM CDT Lupillo Araiza M.D. LAB URINE ORDERABLES Final Result Performing Organization Address [facility] Co de Phone Number [address] * Urine Culture (12/15/2018 8:52 PM CDT) Urine Culture No growth after 1 day of incubation. 12/17/2018 7:04 AM CDT Urine (Urine, Midstream) 12/15/2018 8:52 PM CDT 12/15/2018 10:03 PM CDT Comment:Specimen Source Site : Urine Lupillo Araiza M.D. LAB MICROBIOLOGY - GENERAL ORDERABLES Final Result Performing Organization Address [facility] de Phone Number [address] * Gram Stain, Urine (12/15/2018 8:52 PM CDT) Gram's Stain, Screen, U Negative 12/15/2018 9:24 PM CDT [facility] Comment: ----ADDITIONAL INFORMATION---- This test has been modified from the learn to swim instructor's instructions. Its performance characteristics were determined by [facility] in a manner consistent with CLIA requirements. This test has not been cleared or approved by the U.S. Food and Drug Administration. Urine (Urine, Midstream) 12/15/2018 8:52 PM CDT 12/15/2018 9:17 PM CDT Lupillo Araiza M.D. LAB URINE ORDERABLES Final Result Performing Organization Address [facility] Co de Phone Number [address] * (ABNORMAL) Urinalysis with Microscopic: Urine, Midstream (12/15/2018 8:52 PM CDT) Source Void 12/15/2018 9:42 PM CDT [facility] Appearance Normal Normal 12/15/2018 9:42 PM CDT [facility] Osmolality, U 784 150 - 1150 mOsm/kg 12/15/2018 9:30 PM CDT [facility] pH, U 5.3 4.5 - 8.0 12/15/2018 9:30 PM CDT [facility] Comment: ----ADDITIONAL INFORMATION---- This test was developed and its performance characteristics determined by [facility] in a manner consistent with CLIA requirements. This test has not been cleared or approved by the U.S. Food and Drug Administration. Glucose 14 0 - 15 mg/dL 12/15/2018 9:42 PM CDT [facility] Protein, U 81(H) <26 mg/dL 12/15/2018 9:42 PM CDT [facility] Comment: ----ADDITIONAL INFORMATION---- On 01/11/2017 the total protein assay method changed resulting in approximately a 15% increase in protein values. Protein/Osmolality 1.03(H) <0.42 Ratio 12/15 9:42 PM CDT [facility] Comment: ----ADDITIONAL INFORMATION---- On 01/11/2017 the total protein assay method changed resulting in approximately a 15% increase in protein values. Predicted 24 Hr Protein 971 mg/24 h 12/15/2018 9:42 PM CDT [facility] Predicted Range 308-3061 mg/24 h 9 9:42 PM CDT [facility] Hemoglobin, QL Negative Negative 12/15/2018 9:39 PM CDT [facility] Urine (Urine, Midstream) 12/15/2018 8:52 PM CDT 12/15/2018 9:17 PM CDT us Lupillo Araiza M.D. LAB URINE ORDERABLES Final Result [facility] [address] [place] [address], [facility] * US Abdomen Limited Liver (12/15/2018 8:46 PM CDT) Anatomical Region Laterality Modality Abdomen, Ultrasound RST LOS, Ultrasound ARZ LOS, Ultrasound FLA LOS N/A Ultrasound 12/15/2018 9:54 PM CDT Impressions 12/16/2018 9:13 AM CDT 1. Indeterminate 5.2 cm hypoechoic mass in the right hepatic lobe. Differential considerations include abscess and biliary cystadenoma/adenocarcinoma. A prior imaging or dedicated multiphasic cross-sectional exam may be helpful to further characterize the mass. 2. Nonspecific bile duct dilation and pneumobilia. No bile duct thickening or intraluminal material to suggest cholangitis. I have personally reviewed the images and agree with this interpretation. Narrative 12/16/2018 9:13 AM CDT EXAM: US ABDOMEN LIMITED LIVER COMPARISON: CT abdomen pelvis 12/15/2018. FINDINGS: Liver: There is a 5.2 x 4.8 x 3.5 cm heterogeneous hypoechoic mass in the right lateral anterior hepatic lobe. The mass appears solid in nature. There is no blood flow or calcifications within the mass. Bile ducts: Dilated. The common hepatic duct measures 8.9 mm. The common bile duct measures 10 mm. The distal portions of the ducts are not seen due to overlying bowel gas. No bile duct thickening. No intraluminal echogenic material. No obstructive lesion is seen. Pneumobilia is present. The right kidney appears normal where seen. No perinephric fluid. Procedure Note Yesenia Resendez M.D. - 12/16/2018 EXAM: US ABDOMEN LIMITED LIVER COMPARISON: CT abdomen pelvis 12/15/2018. FINDINGS: Liver: There is a 5.2 x 4.8 x 3.5 cm heterogeneous hypoechoic mass in theright lateral anterior hepatic lobe. The mass appears solid in nature. There isno blood flow or calcifications within the mass. Bile ducts: Dilated. The common hepatic duct measures 8.9 mm. The commonbile duct measures 10 mm. The distal portions of the ducts are not seen dueto overlying bowel gas. No bile duct thickening. No intraluminal echogenic material. No obstructive lesion is seen. Pneumobilia is present. The right kidney appears normal where seen. No perinephric fluid. IMPRESSION: 1. Indeterminate 5.2 cm hypoechoic mass in the right hepatic lobe.Differential considerations include abscess and biliary cystadenoma/adenocarcinoma. Aprior imaging or dedicated multiphasic cross-sectional exam may be helpful tofurther characterize the mass. 2. Nonspecific bile duct dilation and pneumobilia. No bile duct thickeningor intraluminal material to suggest cholangitis. I have personally reviewed the images and agree with thisinterpretation. us Pedro Treadwell M.D. IMG US PROCEDURES Final Resul t * (ABNORMAL) Lipase (12/15/2018 7:53 PM CDT) Only the most recent of2 resultswithin the time period is included. [facility] Lipase, S <10(L) 12 - 61 U/L 12/15/2018 8:51 PM CDT [facility] Blood (Blood, Venous) 12/15/2018 7:53 PM CDT 12/15/2018 8:10 PM CDT us Pedro Treadwell M.D. LAB BLOOD ADD-ON Final Result Performing Organization Address City/[facility]/ZIP Co de Phone Number [facility] [address] * Lactate (12/15/2018 7:53 PM CDT) [facility] Lactate, P 0.9 0.5 - 2.2 mmol/L 12/15/2018 8:10 PM CDT [facility] Blood (Blood, Venous) 12/15/2018 7:53 PM CDT 12/15/2018 7:59 PM CDT us Pedro Treadwell M.D. LAB BLOOD NON ADD-ON Final Re sult Performing Organization Address City/[facility]/ZIP Co de Phone Number [facility] [address] * (ABNORMAL) Urinalysis with Microscopic if Indicated (12/15/2018 11:02 AM CDT) [facility] Source Midstream 12/15/2018 11:14 AM CDT [facility] Clarity Clear Clear 12/15/2018 11:14 AM CDT [facility] Color Elsa 12/15/2018 11:14 AM CDT [facility] Comment: ----REFERENCE VALUE---- Colorless Yellow Elsa Blood Negative Negative 12/15/2018 11:14 AM CDT [facility] Nitrite Negative Negative 12/15/2018 11:14 AM CDT [facility] Leukocyte Esterase Negative Negative 12/15/2018 11:14 AM CDT [facility] Protein 100(A) mg/dL 12/15/2018 11:14 AM CDT [facility] Comment: ----REFERENCE VALUE---- Negative Trace Glucose Negative Negative mg/dL 12/15/2018 11:14 AM CDT [facility] Ketone Negative Negative mg/dL 12/15/2018 11:14 AM CDT [facility] Bilirubin Small(A) Negative 12/15/2018 11:14 AM CDT [facility] pH 5.0 5.0 - 8.0 12/15/2018 11:14 AM CDT [facility] Specific Carrier >1.035 1.001 - 1.035 12/15/2018 11:14 AM CDT [facility] [facility] Urobilinogen 2.0(A) 0.2 - 1.0 12/15/2018 11:14 AM CDT [facility] Urine (Urine, Clean Catch) 12/15/2018 11:02 AM CDT 12/15/2018 11:06 AM CDT us Lucila Jimenez P.A.-C., P.A. LAB URINE ORDERABLES Final Result [facility] [address] [place] [address], [facility] * Microscopic Automated (12/15/2018 11:02 AM CDT) White Blood Cells None Seen /hpf 12/15/2018 11:14 AM CDT [facility] Comment: ----REFERENCE VALUE---- Males: 0-3 Females: 0-10 Unknown: 0-10 Red Blood Cells Occ-2 0 - 2 /hpf 12/15/2018 11:14 AM CDT [facility] Hyaline Casts 4-10 /lpf 12/15/2018 11:14 AM CDT [facility] Squamous Cells Occ-3 /hpf 12/15/2018 11:14 AM CDT [facility] Urine 12/15/2018 11:0 2 AM CDT 12/15/2018 11:06 AM CDT Lucila Jimenez P.A.-C., P.A. LAB URINE ORDERABLES Final Result Performing Organization Address City/[facility]/ZIP Co de Phone Number [facility] [address] [place] [address] * Amylase, Total (12/15/2018 9:49 AM CDT) Pathologist [facility] Amylase, Total, P 34 26 - 102 U/L 12/15/2018 10:09 AM CDT [facility] Blood (Blood, Venous) 12/15/2018 9:49 AM CDT 12/15/2018 9:51 AM CDT Lucila Jimenez P.A.-C., P.A. LAB BLOOD ADD-ON Lakisha l Result Performing Organization Address City/[facility]/ZIP Co de Phone Number [facility] [address] [place] [address] * Urinalysis no Reflex (09/21/2017 8:39 AM [employer]) Source Midstream 09/21/2017 9:00 AM [employer] [facility] Clarity Clear Clear 09/21/2017 9:00 AM [facility] Color Yellow 09/21/2017 9:00 AM [facility] Comment: ----REFERENCE VALUE---- Colorless Yellow Elsa Blood Negative Negative 09/21/2017 9:00 AM [facility] Nitrite Negative Negative 09/21/2017 9:00 AM [facility] Leukocyte Esterase Negative Negative 09/21/2017 9:00 AM [facility] Protein, U Negative mg/dL 09/21/2017 9:00 AM [facility] Comment: ----REFERENCE VALUE---- Negative Trace Glucose Negative Negative mg/dL 09/21/2017 9:00 AM [facility] Ketone Negative Negative mg/dL 09/21/2017 9:00 AM [facility] Bilirubin Negative Negative 09/21/2017 9:00 AM [facility] pH 6.5 5.0 - 8.0 09/21/2017 9:00 AM [facility] Specific Carrier 1.029 1.001 - 1.035 09/21/2017 9:00 AM [facility] Urobilinogen 1.0 0.2 - 1.0 09/21/2017 9:00 AM [facility] Urine (Urine, Clean Catch) 09/21/2017 8:39 AM [employer] 09/21/2017 8:39 AM [facility] us Michael Schmitz APRN, C.N.P. LAB URINE ORDERABLES Final Result [facility] [address] [place] [address], [facility] * (ABNORMAL) Automated Differential (04/26/2017 4:10 PM CDT) Absolute Neutrophils 3.55 1.70 - 7.00 109L POWERCHART Lymphocytes 1.05 0.90 - 2.90 X109L POWERCHART Monocytes 0.98(H) 0.30 - 0.90 X109L POWERCHART Eosinophils 0.38 0.05 - 0.50 X109L POWERCHART Absolute Basophil 0.04 0.00 - 0.30 X109L POWERCHART Blood 04/26/2017 4:10 PM CDT 04/26/2017 4:10 PM CDT us José Antonio Sams M.D. LAB BLOOD ADD-ON Final Res ult Performing Organization Address [facility] de Phone Number POWERCHART NA * S-TSH (Thyroid-Stimulating Hormone - Sensitive) (04/26/2017 4:10 PM CDT) TSH (Thyrotropin) 2.45 0.27 - 4.20 MIUL POWERCHART Comment: Biotin has been identified by the learn to swim instructor as a potential interfering substance. Higher concentrations of biotin may be found in multivitamins, hair/nail supplements, and workout supplements. If the result does not match clinical observations, repeat testing after patient refrains from the use of supplements for at least 12 hours. Blood 04/26/2017 4:10 PM CDT us José Antonio Sams M.D. LAB BLOOD ADD-ON Final Res ult Performing Organization Address [facility] de Phone Number POWERCHART NA * Sodium (04/26/2017 4:10 PM CDT) Sodium, S 143 135 - 145 MMOLL POWERCHART Blood 04/26/2017 4:10 PM CDT us José Antonio Sams M.D. LAB BLOOD ADD-ON Final Res ult Performing Organization Address [facility] de Phone Number POWERCHART NA * Potassium, S (04/26/2017 4:10 PM CDT) Potassium, S 4.1 3.6 - 5.2 MMOLL POWERCHART Blood 04/26/2017 4:10 PM CDT us José Antonio Sams M.D. LAB BLOOD ADD-ON Final Res ult POWERCHART NA * US Scrotum (12/03/2016 10:02 AM CDT) Anatomical Region Laterality Modality Testes N/A Ultrasound 12/03/2016 10:0 2 AM CDT Addenda Addendum by ProviderAlan M.D. on 12/03/2016 10:02 AM CDT RAD^^^OW US Scrotum And Contents 12/03/2016 10:02:24 Impressions 12/03/2016 10:37 AM CDT 1. Moderate hyperemic fat within the left inguinal canal surrounding the left testicle. Findings suggest inflamed fatty hernia. 2. Bilateral epididymal cysts. 3. Bilateral varicoceles. Narrative 12/03/2016 10:37 AM CDT EXAM: US Scrotum And Contents INDICATION: left testicular swelling, pain swelling above testicle, x 1 week. AGE: 71 years-old COMPARISON: None. FINDINGS: RIGHT: Teste: Normal size at 4.3 x 2.9 x 2.5 cm. No intratesticular masses. Normal arteriovenous flow without torsion. Epididymis: 5 mm epididymal head cyst. Incidental epididymal appendix. Hydrocele: Small hydrocele. This contains echogenic debris, possibly blood products. Varicocele: Moderate varicocele. LEFT: There is moderate amount of fat within the left inguinal canal extending inferiorly to surround the testicle. This is suggestive of fat hernia. This fat is hyperemic, suggesting inflammation of the hernia. Pelvic CT could further characterize the hernia if clinically warranted. Teste: Normal size at 4.0 x 3.2 x 2.7 cm. No intratesticular masses. Normal arteriovenous flow without torsion. Epididymis: There are multiple epididymal cysts, largest 1.5 cm. Hydrocele: No. Varicocele: Small varicocele. Procedure Note Shun Ho M.D. / ProviderAlan M.D. - 01/06/2017 EXAM: US Scrotum And Contents INDICATION: left testicular swelling, pain swelling above testicle, x 1 week. AGE: 71 years-old COMPARISON: None. FINDINGS: RIGHT: Teste: Normal size at 4.3 x 2.9 x 2.5 cm. No intratesticular masses. Normal arteriovenous flow without torsion. Epididymis: 5 mm epididymal head cyst. Incidental epididymal appendix. Hydrocele: Small hydrocele. This contains echogenic debris, possibly blood products. Varicocele: Moderate varicocele. LEFT: There is moderate amount of fat within the left inguinal canal extending inferiorly to surround the testicle. This is suggestive of fat hernia. This fat is hyperemic, suggesting inflammation of the hernia. Pelvic CT could further characterize the hernia if clinically warranted. Teste: Normal size at 4.0 x 3.2 x 2.7 cm. No intratesticular masses. Normal arteriovenous flow without torsion. Epididymis: There are multiple epididymal cysts, largest 1.5 cm. Hydrocele: No. Varicocele: Small varicocele. IMPRESSION: 1. Moderate hyperemic fat within the left inguinal canal surrounding the left testicle. Findings suggest inflamed fatty hernia. 2. Bilateral epididymal cysts. 3. Bilateral varicoceles. Tia Liu R.V.T., R.PhongMMeyS. [facility] M[facility] BYNUM Edited Result - Final * (ABNORMAL) Bacterial Culture, Aerobic, Urine (12/03/2016 9:43 AM CDT) Bacterial Culture, Aerobic, Urine EC(POSITIV E) >=32 POWERCHART HXPre EC POWERCHART Comment:>100,000 cfu/mL Esch erichia coli HXFinal EC POWERCHART Comment:>100,000 cfu/mL Esch erichia coli Urine, First Voided 12/03/2016 9:43 AM CDT 12/03/2016 9:43 AM CDT Narrative Organism Antibiotic Method Susceptibility Escherichia coli Ampicillin SUSCEPTIBILITY, ARNIE (MCG/ML) >=32: Resistant Escherichia coli Ampicillin + Sulbactam SUSCEPTI BILITY, ARNIE (MCG/ML) >=32: Resistant Escherichia coli Aztreonam SUSCEPTIBILITY, ARNIE (MCG/ML) <=1: Susceptible Escherichia coli Cefazolin SUSCEPTIBILITY, ARNIE (MCG/ML) <=4: Susceptible Escherichia coli Cefepime SUSCEPTIBILITY, ARNIE (MCG/ML) <=1: Susceptible Escherichia coli Ceftazidime SUSCEPTIBILITY, ARNIE (MCG/ML) <=1: Susceptible Escherichia coli Ceftriaxone SUSCEPTIBILITY, ARNIE (MCG/ML) <=1: Susceptible Escherichia coli ESBL Confirmation Test SUSCEPTI BILITY, ARNIE (MCG/ML) Neg: Negative Escherichia coli Ertapenem SUSCEPTIBILITY, ARNIE (MCG/ML) <=0.5: Susceptible Escherichia coli Gentamicin SUSCEPTIBILITY, ARNIE (MCG/ML) <=1: Susceptible Escherichia coli Levofloxacin SUSCEPTIBILITY, ARNIE (MCG/ML) <=0.12: Susceptible Escherichia coli Meropenem SUSCEPTIBILITY, ARNIE (MCG/ML) <=0.25: Susceptible Escherichia coli Nitrofurantoin SUSCEPTIBILITY, ARNIE (MCG/ML) <=16: Susceptible Escherichia coli Piperacillin + Tazobactam SUSCE PTIBILITY, ARNIE (MCG/ML) <=4: Susceptible Escherichia coli Trimethoprim + Sulfamethoxazole SUSCEPTIBILITY, ARNIE (MCG/ML) <=20: Susceptible Escherichia coli Tobramycin SUSCEPTIBILITY, ARNIE (MCG/ML) <=1: Susceptible Koby Baumann P.A.-C. LAB MICROBIOLOGY - GENERA L ORDERABLES Edited Result - Final POWERCHART * (ABNORMAL) Urinalysis, Midstream, with culture if indicated (12/03/2016 9:12 AM CDT) HXUR WBC. 11-20(A) None Seen HPF POWERCHART HXUR RBC. None Seen None Seen HPF POWERCHART Casts, Hyaline 4-10(A) None Seen LPF POWERCHART Squamous Epithelial Occ-3(A) None Seen HPF POWERCHART HXUR Bacteria, Present(A) None Seen POWERCHART HXUr Color Yellow Yellow POWERCHART Clarity Cloudy(A) Clear POWERCHART Glucose Negative Negative POWERCHART HXBILIRUBIN Negative Negative POWERCHART Ketones, QL(U) Negative Negative POWERCHART Specific Carrier, POCT, U 1.025 1.001 - 1.035 POWERCHART Comment: Reference Range Specific Carrier: 1.000-1.035 pH, POCT, Urine 7.0 POWERCHART Comment: UA pH Reference Range pH: 5.0-8.0 Protein, Ur, Dip Negative Negative POWERCHART Urobilinogen 1.0 0.2 MGDL POWERCHART Comment: Reference Range Urobilinogen: 0.2-1.0 mg/dL HXNITRITE Positive(A) Negative POWERCHART HXBLOOD Negative Negative POWERCHART Leukocyte Esterase Small(A) Negative POWERCHART Urine, First Voided 12/03/2016 9:12 AM CDT Koby Baumann P.A.-C. LAB URINE ORDERABLES Lakisha l Result Performing Organization Address [facility] de Phone Number POWERCHART * Chlamydia / gonorrhoeae Amplified RNA (12/03/2016 9:12 AM CDT) HX GC by Nucleic Acid Amplification POWERCHART HXFinal Negative for Neisseria gonorrhea by RNA amplification . POWERCHART HXFinal Reference: Negative POWERCHART HXFinal If you submitted a female urine sample, please note it is a Laboratory Developed Test. POWERCHART Urine 12/03/2016 9:12 AM CDT Koby Baumann P.A.-C. LAB MICROBIOLOGY - GENERA L ORDERABLES Edited Result - Final Performing Organization Address [facility] Phone Number POWERCHART * Chlamydia trachomatis Amplified RNA (12/03/2016 9:12 AM CDT) HXChlamydia by Nucleic Acid Amplification POWERCHART HXFinal Negative for Chlamydia trachomatis by RNA amplification. POWERCHART HXFinal Reference: Negative POWERCHART HXFinal If you submitted a female urine sample, please note it is a Laboratory Developed Test. POWERCHART Urine 12/03/2016 9:12 AM CDT Koby SpencerC. LAB MICROBIOLOGY - GENERA L ORDERABLES Edited Result - Final Performing Organization Address [facility] de Phone Number POWERCHART * Dipstick, Urine (09/27/2016 9:41 AM CDT) Only the most recent of3 resultswithin the time period is included. HXUr Color Yellow Yellow POWERCHART Clarity Clear Clear POWERCHART Glucose Negative Negative POWERCHART HXBILIRUBIN Negative Negative POWERCHART Ketones, QL(U) Negative Negative POWERCHART Specific Carrier, POCT, U 1.024 1.001 - 1.035 POWERCHART Comment: Reference Range Specific Carrier: 1.000-1.035 pH, POCT, Urine 7.0 POWERCHART Comment: UA pH Reference Range pH: 5.0-8.0 Protein, Ur, Dip Negative Negative POWERCHART Urobilinogen 1.0 0.2 MGDL POWERCHART Comment: Reference Range Urobilinogen: 0.2-1.0 mg/dL HXNITRITE Negative Negative POWERCHART HXBLOOD Negative Negative POWERCHART Leukocyte Esterase Negative Negative POWERCHART Urine, First Voided 09/27/2016 9:41 AM CDT Thiago Huffman M.D. LAB URINE ORDERABLES Final Re sult Performing Organization Address [facility] de Phone Number POWERCHART * PSA (Prostate-Specific Antigen) Screen (10/31/2014 2:58 PM CDT) Only the most recent of2 resultswithin the time period is included. Prostate-Specif ic Ag 0.3 0.0 - 6.5 NGML POWERCHART Blood 10/31/2014 2:58 PM CDT us Navi Cruz M.D. LAB BLOOD ADD-ON Final Resul t Performing Organization Address [facility] de Phone Number POWERCHART * AST (Aspartate Aminotransferase) (03/01/2012 8:11 AM CDT) Only the most recent of2 resultswithin the time period is included. Aspartate Aminotransferase (AST), S 29 8 - 48 UNITL POWERCHART Blood 03/01/2012 8:11 AM CDT us Navi Cruz M.D. LAB BLOOD ADD-ON Final Resul t Performing Organization Address [facility] de Phone Number POWERCHART * Glucose (12/02/2011 7:37 AM CDT) Glucose 97 70 - 139 MGDL POWERCHART Comment: Fasting Range 70-99 mg/dL Non-Fasting Range 70-140 mg/dL Glucose 1 Hr OB ADA Guidelines state a glucose threshhold value = or > 140 md/dL identifies approximately 80% of women with GDM, and the yield is further increased to 90% by using a cut off of > or = 130 mg/dL. ADA Diagnostic Criteria; -Fasting glucose > or = 126 mg/dL after an 8 hr fast OR -2-Hr glucose > or = to 200 mg/dL during a 75 gram oral load OR -Glucose casual (random) glucose > or = 200 mg/dL plus typical symptoms 3-Hour Glucose Tolerance Diagnostic Cut-offs (after an 8-hour fast): Fasting >=95 mg/dL 1 Hour >=180 mg/dL 2 Hour >=155 mg/dL 3 Hour >=140 mg/dL Blood 12/02/2011 7:37 AM CDT Navi Cruz M.D. LAB BLOOD ADD-ON Final Resul t Performing Organization Address [facility] de Phone Number POWERCHART * Urinalysis, Routine (10/21/2011 12:06 PM CDT) Source Clean Void Urine POWERCHART HXUr Color STRAW POWERCHART Glucose Negative Negative POWERCHART HXBILIRUBIN Negative Negative POWERCHART Ketones, QL(U) Negative Negative POWERCHART Specific Carrier, POCT, U >=1.030 >=1.030 POWERCHART pH, POCT, Urine 5.0 8.5 POWERCHART Protein, Ur, Dip Negative Negative POWERCHART Urobilinogen 0.2 1.0 POWERCHART HXNITRITE Negative Negative POWERCHART HXBLOOD Negative Negative POWERCHART Leukocyte Esterase Negative Negative POWERCHART Urine 10/21/2011 12:0 6 PM CDT Navi Cruz M.D. LAB URINE ORDERABLES Final R esult Performing Organization Address [facility] de Phone Number POWERCHART * Urine Microscopic (10/21/2011 12:06 PM CDT) HXUr WBC 0-5 0 - 2 POWERCHART Red Blood Cell Clump, Urine 0-3 0 - 2 POWERCHART HXUr Epithelial Few 0 - 5 POWERCHART HXUr Bacteria Negative POWERCHART Crystals None Seen None Seen POWERCHART HX Ur Casts None Seen None Seen POWERCHART HX MUCOUS THREADS Negative POWERCHART Urine 10/21/2011 12:0 6 PM CDT 10/21/2011 12:06 PM CDT Navi Cruz M.D. LAB URINE ORDERABLES Final R esult Performing Organization Address City/[facility]/ZIP Co de Phone Number POWERCHART * Pathology Surgical Pathology (09/22/2010 12:00 AM [employer]) Only the most recent of2 resultswithin the time period is included. 09/22/[address] [facility] - 09/30/2010 10:46 AM CDT PATIENT IMAGES Choose the Image button to view related documents. us Historical Provider LAB SURG PATH ORDERABLES Fin al Result Performing Organization Address [facility] Co de Phone Number 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 Department Of Transportation Examination Department Of Motor Vehicles 09/21/2017 Department Of Transportation Examination Department Of Motor Vehicles 09/21/2017 Hypertension Essential Primary 11/21/2017 Chronic Obstructive Pulmonary Disease (HCC) 11/21/2017 Hypercholesterolemia 11/21/2017 Bronchitis Acute 01/19/2018 Cough Unspecified Type 01/30/2018 Chronic Obstructive Pulmonary Disease (HCC) 01/30/2018 Cough Unspecified Type 01/30/2018 Chronic Obstructive Pulmonary Disease (HCC) 01/30/2018 Dyspnea On Exertion 03/24/2018 Shortness Of Breath 03/24/2018 Hypertension Essential Primary 04/04/2018 Chronic Obstructive Pulmonary Disease (HCC) 04/04/2018 Pain Right Upper Quadrant 12/15/2018 Night Sweats 12/15/2018 Night Sweats 12/15/2018 Pain Right Upper Quadrant 12/15/2018 Mass Hepatic 12/20/2018 Abdominal Pain 12/15/2018 Hypertension Essential Primary 12/15/2018 Mass Hepatic 12/21/2018 Mass Hepatic 12/21/2018 Mass Hepatic 12/21/2018 Rigors 12/21/2018 Mass Hepatic 12/22/2018 Rigors 12/22/2018 Mass Hepatic 12/23/2018 Mass Hepatic 12/24/2018 Mass Hepatic 12/25/2018 Rigors 12/25/2018 Mass Hepatic 12/25/2018 Nodule Pulmonary Solitary 12/25/2018 Mass Hepatic 12/26/2018 Mass Hepatic 12/26/2018 Mass Hepatic 12/26/2018 Mass Hepatic 12/26/2018 Rigors 12/26/2018 Mass Hepatic 12/27/2018 Rigors 12/27/2018 Mass Hepatic 12/28/2018 Rigors 12/28/2018 Mass Hepatic 12/29/2018 Rigors 12/29/2018 Mass Hepatic 12/30/2018 Mass Hepatic 12/31/2018 Mass Hepatic 01/01/2019 Rigors 01/01/2019 Mass Hepatic 01/02/2019 Rigors 01/02/2019 Mass Hepatic 01/03/2019 Rigors 01/03/2019 Mass Hepatic 01/04/2019 Diarrhea 01/04/2019 Diarrhea 01/04/2019 Mass Hepatic 01/04/2019 Mass Hepatic 01/04/2019 Rigors 01/04/2019 Mass Hepatic 01/05/2019 Rigors 01/05/2019 Strain Of Muscle Fascia And Tendon At Neck Level Sequela 01/05/2019 Mass Hepatic 01/06/2019 Mass Hepatic 01/07/2019 Pain Neck 01/08/2019 Pain Wrist Left 01/08/2019 Mass Hepatic 01/08/2019 Rigors 01/08/2019 Mass Hepatic 01/09/2019 Rigors 01/09/2019 Pain Neck 01/10/2019 Pain Neck 01/10/2019 Administrative Encounter No Exam 01/10/2019 Mass Hepatic 01/10/2019 Rigors 01/10/2019 Mass Hepatic 01/11/2019 Mass Hepatic 01/11/2019 Rigors 01/11/2019 Mass Hepatic 01/12/2019 Rigors 01/12/2019 Mass Hepatic 01/13/2019 Mass Hepatic 01/14/2019 Mass Hepatic 01/15/2019 Mass Hepatic 01/15/2019 Rigors 01/15/2019 Mass Hepatic 01/16/2019 Pain Cervical 01/16/2019 Rigors 01/16/2019 Mass Hepatic 01/16/2019 Pain Cervical 01/16/2019 Long-Term Antibiotic Treatment 01/16/2019 Mass Hepatic 01/16/2019 Rigors 01/16/2019 Mass Hepatic 01/17/2019 Pain Cervical 01/17/2019 Mass Hepatic 01/17/2019 Rigors 01/17/2019 Mass Hepatic 01/18/2019 Mass Hepatic 01/19/2019 Supervisor [employer] Antibiotic Treatment 01/19/2019 Rigors 01/19/2019 Mass Hepatic 01/20/2019 Mass Hepatic 01/21/2019 Mass Hepatic 01/22/2019 Rigors 01/22/2019 Rigors 01/23/2019 Mass Hepatic 01/23/2019 Mass Hepatic 01/24/2019 Rigors 01/24/2019 Rigors 01/25/2019 Mass Hepatic 01/25/2019 Long-Term Antibiotic Treatment 01/26/2019 Rigors 01/26/2019 Mass Hepatic 01/26/2019 Mass Hepatic 01/27/2019 Mass Hepatic 01/28/2019 Supervisor [employer] Antibiotic Treatment 01/29/2019 Rigors 01/29/2019 Mass Hepatic 01/29/2019 Mass Hepatic 01/30/2019 Rigors 01/30/2019 Mass Hepatic 01/31/2019 Rigors 01/31/2019 Supervisor [employer] Antibiotic Treatment 02/01/2019 Rigors 02/01/2019 Mass Hepatic 02/01/2019 Mass Hepatic 02/02/2019 Long-Term Antibiotic Treatment 02/02/2019 Mass Hepatic 02/02/2019 Rigors 02/02/2019 Mass Hepatic 02/03/2019 Mass Hepatic 02/04/2019 Mass Hepatic 02/05/2019 Rigors 02/05/2019 Rigors 02/06/2019 Mass Hepatic 02/06/2019 Mass Hepatic 02/07/2019 Rigors 02/07/2019 Mass Hepatic 02/08/2019 Rigors 02/08/2019 Long-Term Antibiotic Treatment 02/09/2019 Mass Hepatic 02/09/2019 Rigors 02/09/2019 Mass Hepatic 02/10/2019 Mass Hepatic 02/11/2019 Rigors 02/12/2019 Mass Hepatic 02/12/2019 Supervisor [employer]cycle [employer] Antibiotic Treatment 02/13/2019 Mass Hepatic 02/13/2019 Mass Hepatic 02/13/2019 Rigors 02/13/2019 Nodule Pulmonary 04/03/2019 Abscess Hepatic Bacterial (HCC) 04/03/2019 Mass Hepatic 04/04/2019 Mass Hepatic 04/09/2019 Nodule Pulmonary 04/10/2019 Nodule Pulmonary 04/16/2019 Nodule Pulmonary 04/18/2019 Nodule Pulmonary 04/20/2019 Infection Upper Respiratory 04/24/2019 Infection Upper Respiratory 04/24/2019 Nodule Pulmonary 04/26/2019 Nodule Pulmonary 04/26/2019 Nodule Pulmonary 05/08/2019 Nodule Pulmonary 05/08/2019 Nodule Pulmonary Solitary 05/08/2019 Nodule Pulmonary 08/06/2019 Nodule Pulmonary 08/17/2019 Encounter For COVID-19 Vaccine Immunization 09/10/2020 Encounter For COVID-19 Vaccine Immunization 10/03/2020 Pain Leg Left 11/24/2020 Pain Leg Left 11/24/2020 Pain Chest 06/30/2021 Other Chest Pain 06/30/2021 Chronic Obstructive Pulmonary Disease Exacerbation (HCC) 10/08/2021 Hypertension Emergency 10/14/2021 Chronic Obstructive Pulmonary Disease (HCC) 10/14/2021 Cough Unspecified Type 10/14/2021 Shortness Of Breath 10/14/2021 Hypertensive Crisis Unspecified 10/14/2021 Hypertension Essential Primary 10/22/2021 Hypertension Essential Primary 10/30/2021 Chronic Obstructive Pulmonary Disease Exacerbation (HCC) 05/01/2022 Pain Chest 11/27/2022 Abdominal Pain 11/27/2022 Shortness Of Breath 11/27/2022 Pancreatitis Acute (HCC) 11/27/2022 Cholangitis Acute (HCC) 12/10/2022 Cholangitis Acute (HCC) 12/10/2022 Chronic Obstructive Pulmonary Disease (HCC) 12/10/2022 Cholangitis Acute (HCC) 12/17/2022 Procedure And Treatment Not Carried Out Due To Patient Leaving Prior To Being Seen By Health Care Provider 12/17/2022 Cholangitis Acute (HCC) 12/17/2022 Diarrhea 12/17/2022 Hypertension Essential Primary 10/27/2023 Screening Examination Diabetes Mellitus 10/27/2023 Hypercholesterolemia 10/27/2023 Screening Test Laboratory 10/27/2023 Annual Medicare Examination Return 10/27/2023 Chronic Obstructive Pulmonary Disease (HCC) 10/27/2023 Hypercholesterolemia 10/27/2023 Hypertension Essential Primary 10/27/2023 Screening Examination Diabetes Mellitus 10/27/2023 Screening Test Laboratory 10/27/2023 Hypertension Essential Primary 11/03/2023 Hypertension Essential Primary 12/05/2023 Injury Conjunctiva And Corneal Abrasion Without Foreign Body Left Eye Initial 06/04/2024 Injury Conjunctiva And Corneal Abrasion Without Foreign Body Left Eye Initial 06/07/2024 Hypercholesterolemia 08/19/2024 Hypertension Essential Primary 09/05/2024 Hypertension Essential Primary 09/05/2024 Numbness Hand 09/05/2024 Chronic Obstructive Pulmonary Disease (HCC) 09/05/2024 Hypertension Essential Primary 09/05/2024 Hypertension Essential Primary 09/12/2024 Hypertension Essential Primary 09/12/2024 Carpal Tunnel Syndrome Bilateral 10/09/2024 Hypertension Essential Primary 10/09/2024 Numbness Hand 10/09/2024 Carpal Tunnel Syndrome Bilateral 10/30/2024 Carpal Tunnel Syndrome Bilateral 11/06/2024 Abdominal Pain 12/15/2018 Mass Hepatic 12/15/2018 Rigors 12/15/2018 Hypertension Essential Primary 12/15/2018 Chronic Obstructive Pulmonary Disease (HCC) 12/15/2018 Hypercholesterolemia 12/15/2018 Dilated Common Bile Duct 12/15/2018 Elevated Bilirubin 12/15/2018 Nodule Pulmonary Solitary 12/15/2018 Care Teams Pottery Machine Operator Relationship Specialty Start Date End Date Katharine Alcala APRN, C.N.P., D.N.P. [address] [place] [id number] PCP - General 03/18/24
--- NOTE | 2024-11-17 19:55 | ED.WOUNDLAC ---
HPI - Wound/Laceration General Chief Complaint: Laceration/Wound Stated Complaint: needs stitches - Lac L hand Time Seen by Provider: 11/17/24 19:06 History of Present Illness HPI narrative: This 79-year-old male comes in with an injury to his left hand. He was working with a garage door and disconnecting the spring. It was under a significant load and when it spun it caused an injury to his left hand. He has a laceration on the ulnar aspect of his palm in the pad of his proximal portion of the 5th metatarsal. He states that he thinks his tetanus status is up-to-date. He has full range of motion and function of his fingers. Related Data Home Medications ?Medication ?Instructions ?Recorded ?Confirmed albuterol 90 mcg/actuation aerosol mcg inhalation Q4-6H PRN 09/14/24 inhaler amlodipine 5 mg tablet 5 mg PO DAILY 09/14/24 09/14/24 aspirin 81 mg chewable tablet 81 mg PO DAILY 09/14/24 09/14/24 (Roberto Chewable Low Dose Aspirin) famotidine 20 mg tablet (Acid 20 mg PO DAILY 09/14/24 09/14/24 Gerontological Nurse Practitioner (famotidine)) gabapentin 100 mg capsule 100 mg PO TID 09/14/24 09/14/24 lisinopril 5 mg tablet 5 mg PO DAILY 09/14/24 09/14/24 methylprednisolone 4 mg tablets in See Rx Instructions PO .COMPLEX 09/14/24 09/14/24 a dose pack (Medrol (Artemio)) Previous Rx's ?Medication ?Instructions ?Recorded omeprazole 20 mg capsule,delayed 20 mg PO DAILY #30 caps 09/14/24 release sucralfate 1 gram tablet (Carafate) 1 g PO QID PRN #30 tabs 09/14/24 Allergies Allergy/AdvReac Type Severity Reaction Status Date / Time No Known Drug Allergies Allergy Verified 09/14/24 16:33 Review of Systems Status of ROS: Reports: 10 or more systems reviewed and unremarkable except as noted in History and below Narrative: Constitutional: No fevers, no weight gain or loss. Eyes: No discharge. No vision changes. HENT: No congestion, no sore throat, no ear pain. Cardiovascular: No chest pain, no palpitations. Respiratory: No shortness of breath, no wheezes, no cough. Gastrointestinal: No abdominal pain, no vomiting, no diarrhea. Genitourinary: No dysuria, no hematuria. Musculoskeletal: Left hand injury as described above. Skin: No rashes, no pruritis. Neurological: No dizziness, weakness, sensory change, speech change. Endo/Heme/Allergies: No bruising or bleeding. No polydipsia. Pysch: no suicidality, no anxiety, no insomnia. All other systems reviewed and are negative. [facility] Social History Smoking Status: Former smoker How often do you have a drink containing alcohol: never AUDIT-C Alcohol total score: 0 Non-prescribed substance use: denies use Exam Narrative: Exam Narrative: Constitutional: Well-developed, well-nourished, no acute distress. HEENT: Normocephalic, atraumatic. Neck: Normal range of motion. Nontender. Supple. Heart: Regular. No murmurs. Normal rate. Intact distal pulses. Lungs: Clear to auscultation. No chest discomfort. No wheezes, rhonchi, or rales. Abdomen: Normal bowel sounds. Nontender. No rebound tenderness. Genitalia: Deferred. Back: No midline tenderness. Normal range of motion. Extremities: Normal range of motion. Left hand has a 10 cm laceration on the palmar aspect extending laterally overlying the proximal portion of the 5th metatarsal. Tendon and nerve function is intact. Skin: Intact. No rash. Warm. No erythema or pallor. Neurologic: No altered sensation. No weakness. Alert and oriented. Psychiatric: No suicidality. No anxiety or depression. No insomnia. Nursing notes and vitals signs are reviewed. Const: Vital Signs, click to edit/add: Vital Signs - 24 hr 11/17/24 19:05 Temperature 98.4 F Pulse Rate [Right Pulse Oximeter] 78 Respiratory Rate 16 Blood Pressure [Ri ght Upper Arm] 171/66 H Pulse Oximetry 98 Oxygen Delivery Me thod Room Air Course Vital Signs Vital signs: Initial Vital Signs Temperature 98.4 F 11/17/24 19:05 Temperature Source Temporal Artery Scan 11/17/24 19:05 Pulse Rate 78 11/17/24 19:05 Respiratory Rate 16 11/17/24 19:05 Blood Pressure 171/66 H 11/17/24 19:05 Blood Pressure Mean 101 11/17/24 19:05 Blood Pressure Position Sitting 11/17/24 19:05 Pulse Oximetry 98 11/17/24 19:05 Oxygen Delivery Method Room Air 11/17/24 19:05 Vital Signs Temperature 98.4 F 11/17/24 19:05 Pulse Rate 78 11/17/24 19:05 Respiratory Rate 16 11/17/24 19:05 Blood Pressure 171/66 H 11/17/24 19:05 Pulse Oximetry 98 11/17/24 19:05 Oxygen Delivery Method Room Air 11/17/24 19:05 Temperature 98.4 F 11/17/24 19:05 Pulse Rate 78 11/17/24 19:05 Respiratory Rate 16 11/17/24 19:05 Blood Pressure 171/66 H 11/17/24 19:05 Pulse Oximetry 98 11/17/24 19:05 Oxygen Delivery Method Room Air 11/17/24 19:05 MDM - Wound/Laceration MDM Narrative Medical decision making narrative: This patient comes in with a rather large laceration to the palm of his left hand as described above. After anesthesia with 1% lidocaine with epinephrine I cleansed the wound thoroughly and irrigated at using sterile water. Wound was explored to its base. I placed 11 sutures in interrupted fashion using 4.0 Ethilon suture. The wound edges are nicely approximated. Instructions regarding wound care were given including the need to return to clinic in 7-10 days for suture removal. Given the size of this wound I did elect to treat with Keflex to prevent infection. Discharge Plan Discharge Clinical Impression: Laceration Patient Disposition: Home, Self-Care Condition: Improved Additional Instructions: Keep wound clean and dry. Take medication as prescribed. Follow-up with clinic or urgent care in 7-10 days for suture removal. Return if worsening. Prescriptions: No Action aspirin [Roberto Chewable Aspirin] 81 mg tablet,chewable 81 mg PO DAILY gabapentin 100 mg capsule 100 mg PO TID methylprednisolone [Medrol (Artemio)] 4 mg tablets,dose pack See Rx Instructions .ROUTE .COMPLEX Rx Instructions: orally per package directions amlodipine 5 mg tablet 5 mg PO DAILY famotidine [Acid Gerontological Nurse Practitioner (famotidine)] 20 mg tablet 20 mg PO DAILY lisinopril 5 mg tablet 5 mg PO DAILY albuterol 90 mcg/actuation aerosol inhalation Q4-6H PRN sucralfate [Carafate] 1 gram tablet 1 g PO QID PRNQty: 30 0RF omeprazole 20 mg capsule,delayed release(DR/EC) 20 mg PO DAILY Qty: 30 1RF Follow Up/Referrals: Provider,Not a Local [Primary Care Provider] - Stand Alone Forms: [employer] Info Instructions
--- OUTSIDE RECORDS SUMMARY | 2024-11-17 19:58 | XMS_ITS | Encounter Summary ---
Author Organization [facility] Address [address] [place] [address] Care Team Providers Care Nursing Program Coordinator Name Role Phone JaxonTita Vick BUENO, C.N.P., D.N.P. Primary Car e Provider Encounter Details Date Type Department Care Team (Late st Contact Info) Description 11/02/2024 Clinical Communication Department of Orthopedic Surgery in [place], [place] [address] [phone] Leonila Levy P.A.-C., P.A. [address] [phone] Social History Tobacco Use Types Packs/Day Years Used Date Smoking Tobacco: Former Cigarettes Q uit: 1988 Smokeless Tobacco: Never Alcohol Use Standard Drinks/Week Comments No 0 (1 standard drink = 0.6 oz pur e alcohol) [facility] Utilities Answer Date Recorded In the past 12 months has [employer], gas, oil, or water [employer] threatened to shut off services in your [...] often do you attend chur ch or sabianist services? Never 10/22/2021 Do you belong to [...] Answer Date Recorded PHQ-2 Score 0 09/05/2024 [facility] of Occupat ional Health - Occupational [...] your living situation today? I have a [facility] place to live 10/27/2023 Education Answer Date Recorded What is the highest level of school you have completed or the highest degree you have received? 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 - 11/06/2024 8:16 AM CDT Referral placed to [facility] region. * Telephone Encounter - Mimi Chand C.M.A. - 11/02/2024 4:51 PM CDT Contacted patient and informed him of Leonila Levy's advise. Please let patient know that he could have surgery in [facility] or possibly [place] (he would have to see Dr. Salinas) for consult and possible surgery for his carpal tunnel surgery at a [facility]. I can send a referral for him based on where he would like to go. Patient verified understanding and stated that he would like the Referral to go to [place]. Please place Referral for [place] location. Msg forwarded to provider for review and response. documented in this encounter Plan of Treatment Not on file documented as of this encounter Visit Diagnoses Not on filedocumented in this encounter Additional Health Concerns Assessment Noted Time PHQ-9 Depression Total Score: 0 10/27/19 24 10:34 AM CDT documented as of this encounter Care Teams Nursing Program Coordinator Relationship Specialty Start Date End Date Tita Coates APRN, C.N.P., D.N.P. [address] [place] [address] PCP - General 03/18/24 documented as of this encounter
--- OUTSIDE RECORDS SUMMARY | 2024-11-17 19:58 | XMS_ITS | Encounter Summary ---
Author Organization [facility] Address [address] [place] [address] Care Team Providers Care Gas Engine Operator Compressors Name Role Phone Tita Coates APRN, C.N.P., D.N.P. Primary Car e Provider Reason for Visit * Reason Comments Carpal Tunnel Carpal Tunnel * Outpatient (Routine) - Closed Specialty Diagnoses / Procedures Referred By Yaneth dawson Referred To Contact Orthopedic Surgery Diagnoses Carpal Tunnel Syndrome Bilateral Tita Coates APRN, C.N.P., D.N.P. [address] [place] [address] Phone: tel: fax: [facility] Region Referral ID Status Reason Start Date Expiration Date Visits Re quested Visits Authorized [id number] Closed 10/09/2024 04/10/2026 1 1 Encounter Details Date Type Department Care Team (Latest Contact Info) Description 10/30/2024 1:15 PM CDT Comprehensive Visit Department of Orthopedic Surgery in [place], [place] [address] [phone] Leonila Levy PWilber.-Eufemia., P.A. [address] [phone] Carpal Tunnel Syndrome Bilateral Social History Tobacco Use Types Packs/Day Years Used Date Smoking Tobacco: Former Cigarettes Q uit: 1988 Smokeless Tobacco: Never Alcohol Use Standard Drinks/Week Comments No 0 (1 standard drink = 0.6 oz pur e alcohol) [facility] Utilities Answer Date Recorded In the [...] often do you attend chur ch or faith services? 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 [facility] return and warranty policy was given and reviewed with the patient paperwork has been faxed to the [facility] Store. Marvin Lawrence A.T.C. Clinical [place] Department of Orthopedics documented in this encounter [...] his insurance onlyallows him to go to [facility]. I will reach out to colleagues in [place] for potential surgery to occur there. I [...] documented as of this encounter Care Teams Gas Engine Operator Compressors Relationship Specialty Start Date End Date Tita Coates APRN, C.N.P., D.N.P. [address], [place] [address] PCP - General 03/18/24 documented as of this encounter
--- OUTSIDE RECORDS SUMMARY | 2024-11-17 19:58 | XMS_ITS | Encounter Summary ---
Author Organization [facility] Address [address] [place] [address] Care Team Providers Care Laundry Assistant Name Role Phone Tita Coates MYLES, C.N.P., D.N.P. Primary Car e Provider Reason for Visit * Reason Comments Med Refill Encounter Details Date Type Department Care Team (Late st Contact Info) Description 09/23/2024 Refill Department of Family Medicine, [facility], in [place], [place] [address] [phone] Elsy Winn APRN, C.N.P., D.N.P. [address] [phone] Med Refill Social History Tobacco Use Types Packs/Day Years Used Date Smoking Tobacco: Former Cigarettes Q uit: 1988 Smokeless Tobacco: Never Alcohol Use Standard Drinks/Week Comments No 0 (1 standard drink = 0.6 oz pur e alcohol) [facility] Utilities Answer Date Recorded In the past 12 months has [employer], gas, oil, or water company threatened [...] often do you attend chur ch or taoist services? Never 10/22/2021 Do you belong to any clubs o r organizations such as jain groups, unions, fraternal or athletic groups, or [...] Answer Date Recorded PHQ-2 Score 0 09/05/2024 [facility] of Occupat ional Health - [...] your living situation today? I have a [facility] place to live 10/27/2023 Education Answer Date Recorded What is the highest level of school you have completed or the highest degree you have received? 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 [address] [place] [phone] PCP - General 03/18/24 documented as of this encounter
--- OUTSIDE RECORDS SUMMARY | 2024-11-17 19:58 | XMS_ITS | Encounter Summary ---
Author Organization [facility] Address [address] [place] [address] Care Team Providers Care Clinical Quality Analyst Name Role Phone JaxonTita Vick BUENO C.N.PMey, D.N.P. Primary Car e Provider Reason for Referral * Outpatient (Routine) - Authorized Specialty Diagnoses / Procedures Referred By Yaneth adwson Referred To Contact Orthopedic Surgery Diagnoses Carpal Tunnel Syndrome Bilateral Leonila Levy P.A.-C., P.A. [address] [address] Phone: tel: fax: [facility] Region Referral ID Status Reason Start Date Expiration Date V isits Requested Visits Authorized [id number] Authorized 11/06/2024 05/08/2026 1 1 Scheduling Instructions Wants to see Dr. Salinas, with potential to have surgery in [place]. Encounter Details Date Type Department Care Team (Late st Contact Info) Description 11/06/2024 Orders Only Department of Orthopedic Surgery in [place], [place] [address] [phone] Leonila Levy P.A.-C., P.A. [address] [phone] Carpal Tunnel Syndrome Bilateral (Primary Dx) Social History Tobacco Use Types Packs/Day Years Used Date Smoking Tobacco: Former Cigarettes Q uit: 1988 Smokeless Tobacco: Never Alcohol Use Standard Drinks/Week Comments No 0 (1 standard drink = 0.6 oz pur e alcohol) [facility] Utilities Answer Date Recorded In the [...] How often do you attend chur or jehovah's witness services? 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 [address] [place] [address] PCP - General 03/18/24 documented as of this encounter
--- OUTSIDE RECORDS SUMMARY | 2024-11-17 19:58 | XMS_ITS | Encounter Summary ---
Author Organization [facility] Address [address] [place] [address] Care Team Providers Care Radiologist Diagnostic Name Role Phone Tita Coates APRN, C.N.P., D.N.P. Primary Car e Provider Reason for Referral * Medication Prior Authorization - Closed Specialty Diagnoses / Procedures Referred By Contalyssa t Referred To Contact Diagnoses Hypertension Essential Primary Tita Coates APRN, C.N.P., D.N.P. [address] [address] Phone: tel: fax: Referral ID Status Reason Start Date Expiration Date Visits Re quested Visits Authorized [id number] Closed 1 1 Encounter Details Date Type Department Care Team (Late st Contact Info) Description 10/09/2024 Orders Only Department of Internal Medicine in [place], [place] [address] [place] [phone] Tita Coates APRN, C.N.P., D.N.P. [address] [phone] Hypertension Essential Primary Social History Tobacco Use Types Packs/Day Years Used Date Smoking Tobacco: Former Cigarettes Q uit: 1988 Smokeless Tobacco: Never Alcohol Use Standard Drinks/Week Comments No 0 (1 standard drink = 0.6 oz pur e alcohol) [facility] Utilities Answer Date Recorded In the past [...] often do you attend chur ch or synagogue services? 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 [address] [phone] PCP - General 03/18/24 documented as of this encounter
--- OUTSIDE RECORDS SUMMARY | 2024-11-17 19:58 | XMS_ITS | Encounter Summary ---
Author Organization [facility] Address [address] [place] [address] Care Team Providers Care Grainer Machine Name Role Phone Tita Coates APRN, C.N.P., D.N.P. Primary Car e Provider Encounter Details Date Type Department Care Team (Late st Contact Info) Description 10/09/2024 Clinical Communication Department of Internal Medicine in [place], [place] [address] [phone] Tita Coates APRN, C.N.P., D.N.P. [address] [phone] Social History Tobacco Use Types Packs/Day Years Used Date Smoking Tobacco: Former Cigarettes Q uit: 1988 Smokeless Tobacco: Never Alcohol Use Standard Drinks/Week Comments No 0 (1 standard drink = 0.6 oz pur e alcohol) [facility] Utilities Answer Date Recorded In the past 12 months has [employer], gas, oil, or water [employer] threatened to shut off services in your [...] often do you attend chur ch or episcopalian services? Never 10/22/2021 Do you belong to any clubs o r organizations such as mormon groups, unions, fraternal or athletic groups, or [...] Answer Date Recorded PHQ-2 Score 0 09/05/2024 [facility] of Occupat ional Health - Occupational [...] your living situation today? I have a [facility] place to live 10/27/2023 Education Answer Date Recorded What is the highest level of school you have completed or the highest degree you have received? 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 - 10/09/2024 11:43 AM CDT Patient was in for EMG testing today and brought a letter with him that he received from [employer] 09/27/24 stating that they need more information before they can fill his amlodipine 10 mg tab prescription. You can either call them at [phone] or fax the information to [phone]. Thank you. documented in this encounter Plan of Treatment Not on file documented as of this encounter Visit Diagnoses Not on filedocumented in this encounter Additional Health Concerns Assessment Noted Time PHQ-9 Depression Total Score: 0 10/27/19 10:34 AM CDT documented as of this encounter Care Teams Grainer Machine Relationship Specialty Start Date End Date Tita Coates APRN, C.N.P., D.N.P. [address] [place] [phone] PCP - General 03/18/24 documented as of this encounter
--- OUTSIDE RECORDS SUMMARY | 2024-11-17 19:58 | XMS_ITS | Encounter Summary ---
Author Organization [facility] Address [address] [place] [address] Care Team Providers Care Transit Mechanic Name Role Phone Tita Coates APRN, C.N.P., D.N.P. Primary Car e Provider Reason for Referral * Outpatient (Routine) - Closed Specialty Diagnoses / Procedures Referred By Yaneth dawson Referred To Contact Orthopedic Surgery Diagnoses Carpal Tunnel Syndrome Bilateral Tita Coates APRN, C.N.P., D.N.P. [address], [place] [address] Phone: tel: fax: [facility] Referral ID Status Reason Start Date Expiration Date Visits Re quested Visits Authorized [id number] Closed 10/09/2024 04/10/2026 1 1 Encounter Details Date Type Department Care Team (Late st Contact Info) Description 10/09/2024 Orders Only Department of Internal Medicine in [place], [place] [address] [place] [phone] Tita Coates APRN, C.N.P., D.N.P. [address] [phone] Carpal Tunnel Syndrome Bilateral (Primary Dx) Social History Tobacco Use Types Packs/Day Years Used Date Smoking Tobacco: Former Cigarettes Q uit: 1988 Smokeless Tobacco: Never Alcohol Use Standard Drinks/Week Comments No 0 (1 standard drink = 0.6 oz pur e alcohol) [facility] Utilities Answer Date Recorded In the past [...] often do you attend chur ch or anglican services? Never 10/22/2021 Do you belong to [...] Answer Date Recorded PHQ-2 Score 0 09/05/2024 [facility] of Occupat ional [facility] - Occupational Stress Questionnaire Answer [...] your living situation today? I have a [facility] place to live 10/27/2023 Education Answer Date Recorded What is the highest level of school you have completed or the highest degree you have received? 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 [address] [phone] PCP - General 03/18/24 documented as of this encounter
--- OUTSIDE RECORDS SUMMARY | 2024-11-17 19:58 | XMS_ITS | Encounter Summary ---
Author Organization [facility] Address [address] [place] [address] Care Team Providers Care Beauty Sales Consultant Name Role Phone Tita Alcala APRN, C.N.P., D.N.P. Primary Car e Provider Reason for Visit * Reason Comments Emg * Outpatient (Routine) - Closed Specialty Diagnoses / Procedures Referred By Yaneth dawson Referred To Contact Diagnoses Numbness Hand Procedures EMG Tita Alcala APRN, C.N.P., D.N.P. [address], [place] [address] Phone: tel: fax: [facility] Referral ID Status Reason Start Date Expiration Date Visits Re quested Visits Authorized [id number] Closed 09/05/2024 12/06/2025 1 1 Encounter Details Date Type Department Care Team (Late st Contact Info) Description 10/09/2024 11:15 AM CDT Diagnostic Department of Neurology in [place], [place] [address] [place] [phone] Ayana Brooks D.O. [address] [place] [phone] Numbness Hand Social History Tobacco Use Types Packs/Day Years Used Date Smoking Tobacco: Former Cigarettes Q uit: 1988 Smokeless Tobacco: Never Alcohol Use Standard Drinks/Week Comments No 0 (1 standard drink = 0.6 oz pur e alcohol) [facility] Utilities Answer Date Recorded In the past [...] often do you attend chur ch or yazidi services? Never 10/22/2021 Do you belong to any clubs o r organizations such as quaker groups, unions, fraternal or athletic groups, or [...] Answer Date Recorded PHQ-2 Score 0 09/05/2024 [facility] [place] of Occupat ional Health - Occupational Stress [...] your living situation today? I have a [facility] to live 10/27/2023 Education Answer Date Recorded What is the highest level of school you have completed or the highest degree you have received? 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 Wilder Brooks (127 or [phone]) NERVE CONDUCTIONS Record Rep Normal Normal Distal [...] documented as of this encounter Care Teams Beauty Sales Consultant Relationship Specialty Start Date End Date Tita Alcala APRN, C.N.P., D.N.P. [address] [place] [phone] PCP - General 03/18/24 documented as of this encounter
--- OUTSIDE RECORDS SUMMARY | 2024-11-17 19:58 | XMS_ITS | Encounter Summary ---
Author Organization [facility] Address [address] [place] [address] Care Team Providers Care Electronics Department Manager Name Role Phone Tita Coates APRN, C.N.P., D.N.P. Primary Car e Provider Reason for Visit * Reason Onset Date Comments Results 09/05/2024 Encounter Details Date Type Department Care Team (Late st Contact Info) Description 09/05/2024 Results Follow-Up Department of Internal Medicine in [place], [place] [address] [phone] Tita Coates APRN, C.N.P., D.N.P. [address] [phone] Albumin, Random, Urine, EMG Social History Tobacco Use Types Packs/Day Years Used Date Smoking Tobacco: Former Cigarettes Q uit: 1988 Smokeless Tobacco: Never Alcohol Use Standard Drinks/Week Comments No 0 (1 standard drink = 0.6 oz pur e alcohol) [facility] Utilities Answer Date Recorded In the [...] How often do you attend chur or shinto services? Never 10/22/2021 Do you belong to any clubs o r organizations such as lutheran groups, unions, fraternal or athletic groups, or [...] Answer Date Recorded PHQ-2 Score 0 09/05/2024 [facility] of Occupat ional Health - Occupational [...] your living situation today? I have a [facility] place to live 10/27/2023 Education Answer Date Recorded What is the highest level of school you have completed or the highest degree you have received? 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 [address] [place] [phone] PCP - General 03/18/24 documented as of this encounter
--- OUTSIDE RECORDS SUMMARY | 2024-11-17 20:00 | XMS_ITS | Continuity of Care Document ---
Author Organization [facility] Address [address] [place] [address] Care Team Providers Care Trim Installer Name Role Phone AlcalaKatharine Vick BUENO, C.N.P., D.N.P. Primary Car e Provider Source Comments Patient records contain information from all sites at [facility]. For routine questions regarding patient records, call [phone] during business hours, M-F 8:00 AM - 5:00 PM Central Time. Record requests for emergency care only can be directed to [phone] at any time.[facility] Encounters Date Type Department Care Team Description 5 Orders Only Department of Orthopedic Surgery in [address] [address] Leonila Levy P.A.-C., P.A. Carpal Tunnel Syndrome Bilateral (Primary Dx) 5 Clinical Communication Department of Orthopedic Surgery in [place], [place] [address] [place] [phone] Leonila Levy P.A.-C., P.A. 5 1:15 PM CDT Comprehensive Visit Department of Orthopedic Surgery in [address] [address] Leonila Levy P.A.-C., P.A. Carpal Tunnel Syndrome Bilateral 5 Orders Only Department of Internal Medicine in [address] [address] Katharine Alcala APRN C.N.P., D.N.P. Carpal Tunnel Syndrome Bilateral (Primary Dx) 5 Orders Only Department of Internal Medicine in [address] [phone] Katharine Alcala APRN C.N.P., D.N.P. Hypertension Essential Primary 5 Clinical Communication Department of Internal Medicine in [address] [address] Katharine Alcala APRN C.N.P., D.N.P. 5 11:15 AM CDT Diagnostic Department of Neurology in [address] [address] Ayana Brooks D.O. Numbness Hand 5 Refill Department of [facility], [facility], in [address] [address] Elsy Winn APRN C.N.P., D.N.P. Med Refill 5 Clinical Communication Department of Internal Medicine in [address] [address] Katharine Alcala APRN C.N.PMey, D.N.P. Nurse Visit (BP check) 5 8:30 AM OPERATIONS ARCHITECT Nurse Only Department of Family Medicine, [facility], in [address] [address] Katharine Alcala APRN C.N.P., D.N.P. Jovanni Mast, L.P.N. Nurse Visit (BP check) 5 Results Follow-Up Department of Internal Medicine in [address] [address] Katharine Alcala APRN, C.N.P., D.N.P. Albumin, Random, Urine, EMG 5 Orders Only Department of Internal Medicine in [address] [address] Katharine Alcala APRN, C.N.P., D.N.P. Hypertension Essential Primary (Primary Dx) 5 8:23 AM OPERATIONS ARCHITECT - 5 11:59 PM OPERATIONS ARCHITECT Hospital Encounter Department of Laboratory Medicine in [address] [address] Katharine Alcala APRN, C.N.P., D.N.P. Hypertension Essential Primary Discharge Disposition: Home or Self Care 5 8:00 AM OPERATIONS ARCHITECT Office Visit Department of Internal Medicine in [address] [address] Katharine Alcala APRN, C.N.P., D.N.P. Numbness Hand (Primary Dx); Chronic Obstructive Pulmonary Disease (HCC); Hypertension Essential Primary 5 Refill Department of Family Medicine, [facility], in [address] [address] Elsy Winn APRN, C.N.P., D.N.P. Med Refill 5 Refill Department of Internal Medicine in [address] [place] [address] Katharine Alcala APRN C.N.P., D.N.P. Med Refill 4 11:15 AM OPERATIONS ARCHITECT Comprehensive Visit Department of Ophthalmology in [place] [address] Jordan Gaspar M.D. Injury Conjunctiva And Corneal Abrasion Without Foreign Body Left Eye Initial 4 2:30 PM OPERATIONS ARCHITECT Office Visit Department of [facility], [facility], in [address] [address] Israel Mar M.D., M.B.A. Injury Conjunctiva And Corneal Abrasion Without Foreign Body Left Eye Initial (Primary Dx) 4 Clinical Communication Department of [facility], [facility], in [address] [address] Thiago Huffman M.D. Blood Pressure Check 4 8:30 AM CDT Nurse Only Department of [facility], [facility], in [address] [address] Thiago Huffman M.D. Eisterhold, Kellee J, L.P.NMey Blood Pressure Check 4 Clinical Communication Department of [facility], [facility], in [address] [address] Thiago Huffman M.D. 4 8:45 AM CDT Nurse Only Department of [facility], [facility], in [address] [address] Elsy Winn APRN, C.N.P., D.N.P. Darren Simon, L.P.N. Blood Pressure Check 4 11:02 AM CDT - 4 11:59 PM CDT Hospital Encounter Department of Laboratory Medicine in [address] [address] Elsy Winn APRN C.N.PMey, D.N.P. Hypertension Essential Primary; Screening Examination Diabetes Mellitus; Hypercholesterolemia; Screening Test Laboratory Discharge Disposition: Home or Self Care 4 11:00 AM CDT Office Visit Department of Family Medicine, [facility], in [place], [place] [address] [place] [address] Elsy Winn APRN C.N.P., D.N.P. Sissy Robles R.N. Annual Medicare Examination Return (Primary Dx) 4 10:30 AM CDT Office Visit Department of Family Medicine, [facility], in [place], [place] [address] [place] [address] Elsy Winn APRN, C.N.PMey, D.N.P. Hypercholesterolemia (Primary Dx); Chronic Obstructive Pulmonary Disease (HCC); Hypertension Essential Primary; Screening Examination Diabetes Mellitus; Screening Test Laboratory 4 Orders Only Department of Family Medicine, [facility], in [place], [place] [address] [place] [address] Elsy Winn APRN C.N.PMey, D.N.P. 4 Refill Department of Family Medicine, [facility], in [place], [place] [address] [place] [phone] Thiago Huffman M.D. Med Refill 4 Refill Department of Family Medicine, [facility], in [place], [place] [address] [place] [address] Thiago Huffman M.D. Med Refill 3 Refill Department of Family Medicine, [facility], in [place], [place] [address] [place] [address] Thiago Huffman M.D. Med Refill 3 Orders Only Department of Family Medicine, [facility], in [address] [address] Refugio Falk P.A.-C. 3 2:28 PM CDT - 3 11:59 PM CDT Hospital Encounter Department of Laboratory Medicine in [address] [address] Refugio Falk P.A.-C. Cholangitis Acute Discharge Disposition: Home or Self Care 3 2:15 PM CDT Office Visit Department of [facility], in [address] [address] Thiago Huffman M.D. Procedure And Treatment Not Carried Out Due To Patient Leaving Prior To Being Seen By Health Care Provider (Primary Dx) 3 2:00 PM CDT Office Visit Department of Family [facility], in [address] [address] Refugio Falk P.A.-C. Diarrhea (Primary Dx); Cholangitis Acute 3 10:37 AM CDT - 3 11:59 PM CDT Hospital Encounter Department of Laboratory Medicine in [address] [address] Ryan Villatoro M.B.B.SMey, Darlene Cholangitis Acute Discharge Disposition: Home or Self Care 3 10:00 AM CDT Office Visit Department of [facility], in [address] [address] Ryan Villatoro M.B.B.SMey, Darlene Cholangitis Acute (Primary Dx); Chronic Obstructive Pulmonary Disease (HCC) 3 Clinical Communication Department of [facility], in [place], [place] [address] [place] [phone] Tia Stephenson R.N. Post Hospital Follow-up (TCM call completed) 3 Orders Only [facility] Thiago Huffman M.D. 3 4:59 PM CDT - 3 11:59 PM CDT Emergency [facility] [address] [place] [phone] Pancreatitis Acute (HCC) (Primary Dx); Pain Chest; Abdominal Pain; Shortness Of Breath Discharge Disposition: Admitted as an Inpatient 3 Refill Department of Family Medicine, [facility], in [place], [place] [address] [place] [phone] Thiago Huffman M.D. Med Refill 3 Refill Department of Family Medicine, [facility], in [place], [place] [address] [place] [phone] Thiago Huffman M.D. Med Refill 2 2:40 PM CDT Office Visit Express [facility] in [address] [address] Jaime Fowler P.A.-C. Chronic Obstructive Pulmonary Disease Exacerbation (HCC) (Primary Dx) 2 Refill Department of Family Medicine, [facility], in [place], [place] [address] [place] [phone] Thiago Huffman M.D. Med Refill 2 Orders Only [facility] Thiago Schaeffer M.D. 2 3:15 PM CDT Nurse Only Department of Family Medicine, [facility], in [address] [address] Brennan Pepper APRN C.N.P. Liane Zepeda, L.P.N. Hypertension (Home device comparison) 2 9:30 AM CDT Office Visit Department of Family Medicine, [facility], in [place], [place] [address] [place] [phone] Brennan Pepper APRN, C.N.P. Hypertension Essential Primary (Primary Dx) 2 11:57 AM CDT - 2 4:27 PM CDT Emergency [facility] [address] [place] [phone] Hypertension Emergency (Primary Dx); Chronic Obstructive Pulmonary Disease (HCC) Discharge Disposition: Home or Self Care 2 10:30 AM CDT Office Visit Department of Family Medicine, [facility], [place], [place] [address] [place] [phone] Jina Avila APRN, C.N.P. Cough Unspecified Type (Primary Dx); Shortness Of Breath; Hypertensive Crisis Unspecified 2 3:15 PM CDT Office Visit Department of Family Medicine, [facility], in [place], [place] [address] [place] [phone] Rancho Winslow M.D. Chronic Obstructive Pulmonary Disease Exacerbation (HCC) (Primary Dx) 2 Refill Department of Family Medicine, [facility], in [place], [place] [address] [place] [phone] Linda Winslow M.D. Med Refill 2 Refill Department of Family Medicine, [facility], in [place], [place] [address] [place] [phone] Linda Winslow M.D. Med Refill 1 5:14 AM OPERATIONS ARCHITECT - 1 10:00 AM OPERATIONS ARCHITECT Emergency [facility] [address] [place] [phone] Other Chest Pain (Primary Dx); Pain Chest Discharge Disposition: Home or Self Care 1 9:40 AM OPERATIONS ARCHITECT Immunization Department of Family [facility], [address] [phone] Antonia Millard M.D. 1 Orders Only [facility] Antonia Millard M.D. 1 4:23 PM CDT - 1 11:59 PM CDT Hospital Encounter Department of Radiology in [place], [place] [address] [place] [address] Zeinab Morris P.AMey-C. Pain Leg Left Discharge Disposition: Home or Self Care 1 Clinical Communication Department of Family [facility], [facility], [place], [place] [address] [address] Thiago Huffman M.D. COVID Inquiry 1 4:00 PM CDT Office Visit Department of Family Medicine, [facility], in [place], [place] [address] [place] [address] Zeinab Morris P.AMey-CMey Pain Leg Left (Primary Dx) 1 1:00 PM CDT Immunization Department of Family [facility], [address] [address] Casa Roper M.D. Encounter For COVID-19 Vaccine Immunization 1 8:40 AM OPERATIONS ARCHITECT Immunization Department of Family [facility], [address] [address] Antonia Millard M.D. Encounter For COVID-19 Vaccine Immunization (Primary Dx) 1 Clinical Communication Department of Family Medicine, [facility], in [place], [place] [address] [place] [address] Thiago Huffman M.D. COVID Inquiry 1 Refill Department of Family Medicine, [facility], in [place], [place] [address] [address] Thiago Huffman M.D. Med Refill 1 Orders Only [facility] Antonia Millard M.D. 0 Refill [facility], [facility], Sixth Floor [address] [place] [address] Thiago Huffman M.D. Med Refill 0 Refill [facility], Sixth Floor [address] [place] [address] Thiago Huffman M.D. Med Refill 0 Orders Only [facility] [address] [place] [phone] Marah Lamb, MYLES, C.N.P. 0 Refill Department of Family Medicine, [facility], in [place], [place] [address] [address] Thiago Huffman M.D. Med Refill 0 Orders Only [facility] Thiago Schaeffer M.D. 0 Clinical Communication Division of Pulmonary Medicine in [place], [place] [address] [place] [phone] Germain Posada M.D. 0 Documentation Division of Pulmonary Medicine in [place], [place] [address] [place] [address] Hector Blevins M.D. 0 Clinical Communication Division of Pulmonary Medicine in [place], [place] [address] [place] [address] Germain Posada M.D. 0 12:10 PM OPERATIONS ARCHITECT - 0 11:59 PM OPERATIONS ARCHITECT Hospital Encounter Department of Radiology, [employer], [place] [address] [place] [address] Germain Posada M.D. Nodule Pulmonary Discharge Disposition: Home or Self Care 9 6:33 AM CDT - 9 11:59 PM CDT Hospital Encounter Department of Radiology, [place], [place] [address] [place] [address] Thiago Huffman M.D. Nodule Pulmonary Discharge Disposition: Home or Self Care 9 1:30 PM CDT Comprehensive Visit Division of Pulmonary Medicine in [place], [place] [address] [place] [address] Germain Posada M.D. Nodule Pulmonary Solitary (Primary Dx); Nodule Pulmonary 9 8:05 AM CDT - 9 11:59 PM CDT Hospital Encounter Department of Laboratory Medicine in [place], [place] [address] [place] [phone] Thiago Huffman M.D. Nodule Pulmonary Discharge Disposition: Home or Self Care 9 8:00 AM CDT - 9 8:04 AM CDT Hospital Encounter Department of Laboratory Medicine in [place], [place] [address] [place] [address] Thiago Huffman M.D. Nodule Pulmonary Discharge Disposition: Home or Self Care 9 7:32 PM CDT - 9 11:59 PM CDT Hospital Encounter Department of Radiology in [place], [place] [address] [place] [phone] Jaime Fowler P.A.-C. Infection Upper Respiratory Discharge Disposition: Home or Self Care 9 6:00 PM CDT Office Visit Urgent Care in [address] [address] Jaime Fowler P.A.-C. Infection Upper Respiratory (Primary Dx) 9 Clinical Communication Department of Family Medicine, [facility], in [address] [address] Thiago Huffman M.D. 9 7:15 AM CDT Internal E-Consult Division of Pulmonary Medicine in [place], [place] [address] [place] [phone] Sabrina Garnett M.D. Nodule Pulmonary 9 Orders Only Department of [facility], [facility], in [address] [address] Thiago Huffman M.D. Nodule Pulmonary (Primary Dx) 9 2:24 PM CDT - 9 11:59 PM CDT Hospital Encounter Department of Radiology in [address] [address] Thiago Huffman M.D. Nodule Pulmonary Discharge Disposition: Home or Self Care 9 8:50 AM CDT - 9 11:59 PM CDT Hospital Encounter Department of Laboratory Medicine in [place], [place] [address] [place] [phone] Thiago Huffman M.D. Mass Hepatic Discharge Disposition: Home or Self Care 9 Clinical Communication Department of Radiology in [place], [place] [address] [place] [address] Thiago Huffman M.D. 9 Clinical Communication Department of Family Medicine, [facility], in [place], [place] [address] [place] [address] Thiago Huffman M.D. 9 11:45 AM CDT Office Visit Department of Family Medicine, [facility], in [place], [place] [address] [place] [address] Thiago Huffman M.D. Nodule Pulmonary (Primary Dx); Abscess Hepatic Bacterial (HCC) 9 Clinical Communication Section of Infectious Diseases in [place], [place] [address] [place] [address] Britney [facility]ined[facility] R.[facility]. [facility] End 9 2:05 PM CDT Office Visit Section of Infectious Diseases in [place], [place] [address] [place] [address] Liana Ramirez M.B.B.S. Alf Antibiotic Treatment (Primary Dx) 9 11:34 AM CDT - 9 11:59 PM CDT Hospital Encounter Department of Radiology, [facility], in [place], [place] [address] [place] [address] Raman Snider M.D. Mass Hepatic Discharge Disposition: Home or Self Care 9 8:00 AM CDT Infusion Department of Infusion Therapy in [place], [place] [address] [address] Marah Lamb APRN, C.N.P. Mass Hepatic (Primary Dx); Rigors 9 8:00 AM CDT Infusion Department of Infusion Therapy in [place], [place] [address] [address] Marah Lamb APRN, C.N.P. Rigors (Primary Dx); Mass Hepatic 9 9:05 AM CDT - 9 9:29 AM CDT Hospital Encounter [facility], Second Floor [address] [place] [address] Basilia Barahona D.O. Mass Hepatic (Primary Dx) Discharge Disposition: Home or Self Care 9 9:25 AM CDT - 9 9:51 AM CDT Hospital Encounter [facility], Second Floor [address] [place] [address] Basilia Barahona D.O. Mass Hepatic (Primary Dx) Discharge Disposition: Home or Self Care 9 Clinical Communication Section of Infectious Diseases in [place], [place] [address] [place] [address] Cosmo Dempsey R.N. OPAT Normal Labs 9 8:00 AM CDT Infusion Department of Infusion Therapy in [address] [address] Marah Lamb APRN, C.N.P. Alf Antibiotic Treatment (Primary Dx); Mass Hepatic; Rigors 9 8:00 AM CDT Infusion Department of Infusion Therapy in [place], [place] [address] [address] Marah Lamb APRN, C.N.P. Mass Hepatic (Primary Dx); Rigors 9 8:00 AM CDT Infusion Department of Infusion Therapy in [place], [place] [address] [address] Marah Lamb APRN, C.N.P. Mass Hepatic (Primary Dx); Rigors 9 Orders Only Section of Infectious Diseases in [place], [place] [address] [place] [address] Glo Quigley, Kindra.A.-Amisha 9 Clinical Communication Section of Infectious Diseases in [place], [place] [address] [place] [address] Lily Herrmann, Pharm.D., R.Ph., [facility] 9 8:00 AM CDT Infusion Department of Infusion Therapy in [place], [place] [address] [place] [address] Marah Lamb APRN, C.N.P. Rigors (Primary Dx); Mass Hepatic 9 8:30 AM CDT Infusion Department of Infusion Therapy in [place], [place] [address] [place] [address] Marah Lamb APRN, C.N.P. Mass Hepatic (Primary Dx); Rigors 9 9:08 AM CDT - 9 9:34 AM CDT Hospital Encounter [facility], Second Floor [address] [place] [address] Christiano Bales M.D. Mass Hepatic (Primary Dx) Discharge Disposition: Home or Self Care 9 9:09 AM CDT - 9 9:28 AM CDT Hospital Encounter [facility], Second Floor [address] [place] [address] Christiano Bales M.D. Mass Hepatic (Primary Dx) Discharge Disposition: Home or Self Care 9 Orders Only Section of Infectious Diseases in [place], [place] [address] [place] [address] Raman Snider M.D. Mass Hepatic (Primary Dx) 9 Clinical Communication Section of Infectious Diseases in [place], [place] [address] [place] [address] Lily Herrmann, Pharm.D., R.Ph., [facility] 9 8:30 AM CDT Infusion Department of Infusion Therapy in [place], [place] [address] [address] Marah Lamb APRN, C.N.P. Alf Antibiotic Treatment (Primary Dx); Mass Hepatic; Rigors 9 9:30 AM CDT Lab Department of Infusion Therapy in [address] [phone] Kym Car MPAS, P.A.-C., M.S. Vianey Parkinson, R.[place]ano. Touch Up Painter Hand Antibiotic Treatment 9 8:00 AM CDT Infusion Department of Infusion Therapy in [address] [phone] Marah Lamb APRN, C.N.P. Rigjusto (Primary Dx); Mass Hepatic 9 9:00 AM CDT Infusion Department of Infusion Therapy in [address] [phone] Marah Lamb APRN, C.N.P. Mass Hepatic (Primary Dx); Rigors 9 8:00 AM CDT Infusion Department of Infusion Therapy in [address] [phone] Marah Lamb APRN, C.N.P. Mass Hepatic (Primary Dx); Rigors 9 Clinical Communication Section of Infectious Diseases in [place], [place] [address] [place] [address] Anya Angela R.N. OPAT Intervention Note 9 10:30 AM CDT Infusion Department of Infusion Therapy in [address] [phone] Marah Lamb APRN, C.N.P. Rigors (Primary Dx); Mass Hepatic 9 8:56 AM CDT - 9 9:17 AM CDT Hospital Encounter [facility], Second Floor [address] [place] [address] Len Malone M.D. Mass Hepatic (Primary Dx) Discharge Disposition: Home or Self Care 9 9:00 AM CDT - 9 9:26 AM CDT Hospital Encounter [facility], Second Floor [address] [place] [address] Len Malone M.D. Mass Hepatic (Primary Dx) Discharge Disposition: Home or Self Care 9 8:00 AM CDT Infusion Department of Infusion Therapy in [address] [address] Marah Lamb APRN, C.N.P. Touch Up Painter Hand Antibiotic Treatment (Primary Dx); Rigors; [facility] Hepatic 9 8:00 AM CDT Infusion Department of Infusion Therapy in [address] [place] [address] Marah Lamb APRN, C.N.P. Rigjusto (Primary Dx); [facility] Hepatic 9 8:30 AM CDT Infusion Department of Infusion Therapy in [address] [address] Marah Lamb APRN, C.N.P. Mass Hepatic (Primary Dx); Rigors 9 8:00 AM CDT Infusion Department of Infusion Therapy in [address] [place] [address] Marah Lamb APRN, C.N.P. Rigjusto (Primary Dx); [facility] Hepatic 9 8:30 AM CDT Infusion Department of Infusion Therapy in [address] [address] AdonisMarah burnham APRN, C.NJenny Mass Hepatic (Primary Dx); Rigors 9 9:01 AM CDT - 9 9:24 AM CDT Hospital Encounter [facility], Second Floor [address] [place] [address] Fox Luciano M.D. Mass Hepatic (Primary Dx) Discharge Disposition: Home or Self Care 9 9:07 AM CDT - 9 9:33 AM CDT Hospital Encounter [facility], Second Floor [address] [place] [address] Fox Luciano M.D. Mass Hepatic (Primary Dx) Discharge Disposition: Home or Self Care 9 Orders Only Section of Infectious Diseases in [place], [place] [address] [place] [address] Rhoda Gill, P.A.lEsa 9 Clinical Communication Section of Infectious Diseases in [place], [place] [address] [place] [address] Raman Snider M.D. ITC order 9 Clinical Communication Section of Infectious Diseases in [place], [place] [address] [place] [address] Britney Pineda R.N. OPAT Normal Labs 9 8:00 AM CDT Infusion Department of Infusion Therapy in [place], [place] [address] [place] [address] Marah Lamb APRN CMeyNMeyPMey Mass Hepatic (Primary Dx); Touch Up Painter Hand Antibiotic Treatment; Rigors 9 9:03 AM CDT - 9 9:36 AM CDT Hospital Encounter [facility], Second Floor [address] [place] [address] Christiano Bales M.D. Mass Hepatic (Primary Dx) Discharge Disposition: Home or Self Care 9 9:49 AM CDT - 9 11:59 PM CDT Hospital Encounter Department of Radiology in [address] [address] Raman Snider M.D. Mass Hepatic; Pain Cervical Discharge Disposition: Home or Self Care 9 8:00 AM CDT Infusion Department of Infusion Therapy in [address] [address] Marah Lamb APRN, C.N.P. Mass Hepatic (Primary Dx); Rigors 9 3:10 PM CDT Lab Department of Infusion Therapy in [place], [place] [address] [place] [address] Raman Snider M.D. Mass Hepatic (Primary Dx); Pain Cervical; Rigors 9 Clinical Communication Department of Infusion Therapy in [address] [address] Irene Adams, R.NMey 9 Clinical Communication Department of Infusion Therapy in [address] [address] Irene Adams, R.N. 9 1:50 PM CDT Office Visit Section of Infectious Diseases in [place], [place] [address] [place] [address] Raman Snider M.D. Alf Antibiotic Treatment (Primary Dx); Mass Hepatic; Pain Cervical 9 8:00 AM CDT Infusion Department of Infusion Therapy in [address] [address] Marah Lamb APRN, C.N.P. Mass Hepatic (Primary Dx); Rigors 9 12:53 PM CDT - 9 11:59 PM CDT Hospital Encounter Department of Radiology, [facility], in [place], [place] [address] [place] [address] Carlyle Kessler M.D. Mass Hepatic Discharge Disposition: Home or Self Care 9 10:30 AM CDT Infusion Department of Infusion Therapy in [place], [place] [address] [place] [address] Marah Lamb APRN C.N.PMey Mass Hepatic (Primary Dx); Rigors 9 8:47 AM CDT - 9 8:54 AM CDT Hospital Encounter [facility], Second Floor [address] [place] [address] Fox Luciano M.D. Mass Hepatic (Primary Dx) Discharge Disposition: Home or Self Care 9 9:16 AM CDT - 9 10:13 AM CDT Hospital Encounter [facility], Second Floor [address] [place] [address] Fox Luciano M.D. Mass Hepatic (Primary Dx) Discharge Disposition: Home or Self Care 9 8:00 AM CDT Infusion Department of Infusion Therapy in [place], [place] [address] [place] [address] Marah Lamb APRN, C.N.PMey Mass Hepatic (Primary Dx); Rigors 9 10:30 AM CDT - 9 11:59 AM CDT Hospital Encounter Department of Radiology in [place], [place] [address] [place] [address] Sade Vera APRN, C.N.P. Jayshree Blanca M.D. Carroll, Evelyn F, M.D. Mass Hepatic Discharge Disposition: Home or Self Care 9 8:00 AM CDT Infusion Department of Infusion Therapy in [place], [place] [address] [place] [phone] Marah Lamb APRN, C.N.PMey Mass Hepatic (Primary Dx); Rigors 9 Clinical Communication Section of Infectious Diseases in [place], [place] [address] [place] [address] Anya Angela R.N. OPAT Normal Labs 9 9:36 AM CDT - 9 11:59 PM CDT Hospital Encounter Department of Laboratory Medicine in [place], [place] [address] [place] [phone] Brennan ePpper APRN C.N.P. Pain Neck Discharge Disposition: Home or Self Care 9 Orders Only Department of [facility], [facility], in [address] [address] Brennan Pepper APRN, C.N.P. Pain Neck (Primary Dx) 9 9:00 AM CDT Nurse Only Department of [facility], in [address] [address] Gayatri Summers Nurse Visit 9 8:00 AM CDT Infusion Department of Infusion Therapy in [address] [address] Marah Lamb APRN C.N.P. Mass Hepatic (Primary Dx); Rigors 9 8:00 AM CDT Infusion Department of Infusion Therapy in [place], [place] [address] [place] [phone] Marah Lamb APRN C.N.P. Mass Hepatic (Primary Dx); Rigors 9 3:30 PM CDT Office Visit Department of Family Medicine, [facility], in [place], [place] [address] [place] [address] Brennan Pepper APRN C.N.PMey Pain Neck (Primary Dx); Pain Wrist Left 9 8:30 AM CDT Infusion Department of Infusion Therapy in [place], [place] [address] [address] Marah Lamb APRN, C.N.PMey Mass Hepatic (Primary Dx); Rigors 9 9:19 AM CDT - 9 9:40 AM CDT Hospital Encounter [facility], Second Floor [address] [place] [address] Basilia Barahona D.O. Mass Hepatic (Primary Dx) Discharge Disposition: Home or Self Care 9 6:29 PM CDT - 9 5:45 PM CDT Emergency [facility] [address] [place] [address] Strain Of Muscle Fascia And Tendon At Neck Level Sequela (Primary Dx) Discharge Disposition: Home or Self Care 9 9:16 AM CDT - 9 9:31 AM CDT Hospital Encounter [facility], Second Floor [address] [place] [address] Basilia Barahona D.O. Mass Hepatic (Primary Dx) Discharge Disposition: Home or Self Care 9 8:00 AM CDT Infusion Department of Infusion Therapy in [place], [place] [address] [address] Marah Lamb APRN, C.N.P. Mass Hepatic (Primary Dx); Rigors 9 Orders Only Department of Radiology, [facility], in [place], [place] [address] [place] [address] Sade Vera APRN, C.N.PMey Mass Hepatic (Primary Dx) 9 8:47 AM CDT - 9 10:25 AM CDT Hospital Encounter Department of Laboratory Medicine in [address] [address] Thiago Huffman M.D. Diarrhea Discharge Disposition: Home or Self Care 9 Orders Only Department of Family Medicine, [facility], in [place], [place] [address] [place] [phone] Thiago Huffman M.D. Diarrhea (Primary Dx) 9 10:26 AM CDT - 9 2:05 PM CDT Hospital Encounter Department of Radiology in [place], [place] [address] [place] [phone] Leann Smith APRN, C.N.P., M.S.N. Roel Kellogg M.D. Mass Hepatic Discharge Disposition: Home or Self Care 9 8:30 AM CDT Infusion Department of Infusion Therapy in [place], [place] [address] [place] [address] Marah Lamb APRN, C.N.PMey Mass Hepatic (Primary Dx); Rigors 9 Clinical Communication Section of Infectious Diseases in [place], [place] [address] [place] [address] Cosmo Dempsey R.N. OPAT Normal Labs 9 9:00 AM CDT Infusion Department of Infusion Therapy in [place], [place] [address] [place] [phone] Marah Lamb APRN C.N.PMey Mass Hepatic (Primary Dx); Rigors 9 8:00 AM CDT Infusion Department of Infusion Therapy in [place], [place] [address] [place] [phone] Marah Lamb APRN C.N.P. Mass Hepatic (Primary Dx); Rigors 9 8:30 AM CDT Infusion Department of Infusion Therapy in [place], [place] [address] [address] Marah Lamb APRN, C.N.P. Mass Hepatic (Primary Dx); Rigors 9 9:21 AM CDT - 9 9:40 AM CDT Hospital Encounter [facility], Second Floor [address] [place] [address] Christiano Bales M.D. Mass Hepatic (Primary Dx) Discharge Disposition: Home or Self Care 9 9:13 AM CDT - 9 9:29 AM CDT Hospital Encounter [facility], Second Floor [address] [place] [address] Christiano Bales M.D. Mass Hepatic (Primary Dx) Discharge Disposition: Home or Self Care 9 8:00 AM CDT Infusion Department of Infusion Therapy in [place], [place] [address] [address] Marah Lamb APRN, C.N.P. Mass Hepatic (Primary Dx); Rigors 9 8:00 AM CDT Infusion Department of Infusion Therapy in [place], [place] [address] [address] Marah Lamb APRN, C.N.P. Mass Hepatic (Primary Dx); Rigors 9 Clinical Communication Section of Infectious Diseases in [place], [place] [address] [place] [address] Cosmo Dempsey R.N. OPAT Intervention 9 8:00 AM CDT Infusion Department of Infusion Therapy in [place], [place] [address] [address] Marah Lamb APRN, C.NMeyPMey Mass Hepatic (Primary Dx); Rigors 9 Orders Only Department of Radiology, [facility], in [place], [place] [address] [place] [address] Leann Smith APRN, C.N.PMey, M.S.N. Mass Hepatic (Primary Dx) 9 Orders Only Department of Infusion Therapy in [place], [place] [address] [address] Lena Oleary R.N. Mass Hepatic (Primary Dx) 9 11:07 AM CDT - 9 11:59 PM CDT Hospital Encounter Department of Radiology in [place], [place] [address] [place] [address] Marah Lamb APRN, C.N.P. Jayshree Blanca M.D. Frimpong, Richard G, M.D. Mass Hepatic Discharge Disposition: Home or Self Care 9 8:00 AM CDT Infusion Department of Infusion Therapy in [place], [place] [address] [place] [phone] Marah Lamb APRN C.N.PMey Mass Hepatic (Primary Dx); Rigors 9 8:00 AM CDT Infusion Department of Infusion Therapy in [place], [place] [address] [address] Marah Lamb APRN C.N.P. Mass Hepatic (Primary Dx); Rigors 9 10:45 AM CDT Office Visit Department of Family Medicine, [facility], in [place], [place] [address] [place] [phone] Thiago Huffman M.D. Mass Hepatic (Primary Dx); Nodule Pulmonary Solitary 9 9:20 AM CDT - 9 9:42 AM CDT Hospital Encounter [facility], Second Floor [address] [place] [address] Len Malone M.D. Mass Hepatic (Primary Dx) Discharge Disposition: Home or Self Care 9 9:07 AM CDT - 9 9:33 AM CDT Hospital Encounter [facility], Second Floor [address] [place] [address] Len Malone M.D. Mass Hepatic (Primary Dx) Discharge Disposition: Home or Self Care 9 8:00 AM CDT Infusion Department of Infusion Therapy in [address] [address] Marah Lamb APRN, C.N.P. Mass Hepatic (Primary Dx); Rigors 9 Clinical Communication Department of Internal Medicine in [place], [place] [address] [place] [phone] Janeth Rollins R.N. Post Hospital Follow-up (TCM Complete) 9 Clinical Communication RST [address] [address] Marah Lamb APRN, C.N.P. Pre-visit Testing Orders 9 Clinical Communication [facility] [address] [address] Carlyle Kessler M.D. 9 12:00 PM CDT Infusion Department of Infusion Therapy in [place], [place] [address] [place] [address] Marah Lamb APRN, C.N.P. Mass Hepatic (Primary Dx); Rigors 9 Clinical Communication Department of Family Medicine, [facility], in [place], [place] [address] [place] [phone] Thiago Huffman M.D. Medical Information 9 Episode Changes [facility] [address] [place] [phone] Elsa Lang 9 Clinical Communication [facility] [address] [place] [phone] Marah Lamb APRN, C.N.P. 9 5:54 PM CDT - 9 6:04 PM CDT Hospital Encounter [facility], Sixth Floor [address] [place] [phone] Pedro Treadwell M.D. Lizette Garcia M.D., M.S. Cece Mcgowan M.D. Marcia Schaefer M.D., Ph.D. Sushant Christian D.O. Abdominal Pain (Primary Dx); Hypertension Essential Primary Discharge Disposition: Home or Self Care 9 Clinical Communication Department of Family Medicine, [facility], in [place], [place] [address] [address] Thiago Huffman M.D. 9 12:55 PM CDT Ancillary Procedure Department of Gastroenterology 9 1:46 PM CDT Anesthesia Event Division of Gastroenterology in [address] [address] Jon Lundberg APRN, CRNA 9 1:21 PM CDT - 9 11:59 PM CDT Hospital Encounter Department of Radiology, [facility] in [place], [place] [address] [place] [address] Marah Lamb APRN, C.N.P. Discharge Disposition: Home or Self Care 9 2:23 PM CDT - 9 5:53 PM CDT Hospital Encounter [facility] Discharge Disposition: Home or Self Care 9 11:16 AM CDT - 9 2:22 PM CDT Hospital Encounter Department of Radiology in [address] [address] Lucila Jimenez P.A.-C., P.A. Pain Right Upper Quadrant Discharge Disposition: Home or Self Care 9 9:41 AM CDT - 9 11:15 AM CDT Hospital Encounter Department of Radiology in [place], [place] [address] [place] [phone] Lucila Jimenez P.A.-C., P.A. Night Sweats Discharge Disposition: Home or Self Care 9 9:15 AM CDT Office Visit Urgent Care in [address] [address] Lucila Jimenez P.A.-C., P.A. Night Sweats (Primary Dx); Pain Right Upper Quadrant 9 Refill Department of Family Medicine, [facility], in [address] [address] Thiago Huffman M.D. Med Refill 8 4:30 PM CDT Office Visit Department of Family Medicine, [facility], in [place], [place] [address] [place] [phone] Thiago Huffman M.D. Hypertension Essential Primary (Primary Dx); Chronic Obstructive Pulmonary Disease (HCC) 8 6:26 PM CDT - 8 5:45 PM CDT Emergency [facility] [address] [place] [phone] Shortness Of Breath (Primary Dx) Discharge Disposition: Home or Self Care 8 5:45 PM CDT Office Visit Urgent Care in [place], [place] [address] [place] [phone] Jaime Fowler P.A.-C. Dyspnea On Exertion (Primary Dx) 8 11:22 AM CDT - 8 11:59 PM CDT Hospital Encounter Department of Radiology in [address] [address] Thiago Huffman M.D. Cough; Chronic Obstructive Pulmonary Disease (HCC) Discharge Disposition: Home or Self Care 8 11:30 AM CDT Office Visit Department of Family Medicine, [facility], in [address] [address] Thiago Huffman M.D. Cough (Primary Dx); Chronic Obstructive Pulmonary Disease (HCC) 8 3:30 PM CDT Office Visit Urgent Care in [address] [address] Gabrielle Caceres P.A.-C. Bronchitis Acute (Primary Dx) 8 10:15 AM CDT Office Visit Department of Family Medicine, [facility], in [address] [address] Thiago Huffman M.D. Hypertension Essential Primary (Primary Dx); Chronic Obstructive Pulmonary Disease (HCC); Hypercholesterolemia 8 Refill Department of Family Medicine, [facility], in [address] [address] Thiago Huffman M.D. Med Refill 8 8:33 AM OPERATIONS ARCHITECT - 8 11:59 PM OPERATIONS ARCHITECT Hospital Encounter Department of Laboratory Medicine in [address] [address] Michael Schmitz, MYLES, C.N.P. Department Of Transportation Examination Department Of [employer] Discharge Disposition: Home or Self Care 8 Abstract Department of Internal Medicine in [place], [place] [address] [place] [phone] Provider, Historical 8 9:15 AM OPERATIONS ARCHITECT Office Visit Department of Internal Medicine in [place], [place] [address] [place] [phone] Michael Schmitz, MYLES, C.N.P. Department Of Transportation Examination Department Of Motor Vehicles (Primary Dx) 8 Refill Department of Family Medicine, [facility], in [place], [place] [address] [place] [phone] Thiago Huffman M.D. Med Refill 7 10:39 AM CDT - 7 11:59 PM CDT Hospital Encounter [facility] Thiago Huffman M.D. 7 Orders Only Department of Family Medicine, [facility], in [place], [place] [address] [place] [phone] Thiago Huffman M.D. Hypertension NOS; Hypercholesterolemia Familial [...] [facility] Thiago Huffman M.D. 7 2:30 PM OPERATIONS ARCHITECT - 7 11:59 PM OPERATIONS ARCHITECT Hospital Encounter [facility] Sabrina Guzman M.D. 7 1:52 PM OPERATIONS ARCHITECT - 7 11:59 PM OPERATIONS ARCHITECT Hospital Encounter [facility] Cade Roper M.D. 7 10:03 AM OPERATIONS ARCHITECT - 7 11:59 PM OPERATIONS ARCHITECT Hospital Encounter [facility] Thiago Huffman M.D. 7 7:59 AM OPERATIONS ARCHITECT - 7 11:59 PM OPERATIONS ARCHITECT Hospital Encounter [facility] Thiago [...] Encounter [facility] Sowmya Huang, [facility], P.A.-C. 4 4:29 PM CDT - 4 [...] [facility] Navi Cruz M.D. 2 10:57 AM CDT - 2 11:59 PM CDT Hospital Encounter [facility] Navi Cruz M.D. 2 1:39 PM CDT - 2 11:59 PM CDT Hospital Encounter [facility] Navi Cruz M.D. 1 3:36 PM OPERATIONS ARCHITECT - 1 11:59 PM OPERATIONS ARCHITECT Hospital Encounter [facility] Navi Cruz M.D. 1 2:05 PM OPERATIONS ARCHITECT - 1 11:59 PM OPERATIONS ARCHITECT Hospital Encounter [facility] Navi Cruz M.D. 1 8:42 AM OPERATIONS ARCHITECT - 1 11:59 PM OPERATIONS ARCHITECT Hospital Encounter HX NO MAPPING Thanh Card M.D. 1 9:35 AM OPERATIONS ARCHITECT - 1 11:59 PM OPERATIONS ARCHITECT Hospital Encounter [facility] Navi Cruz M.D. 1 9:23 AM OPERATIONS ARCHITECT - 1 11:59 PM OPERATIONS ARCHITECT Hospital Encounter [facility] Navi Cruz M.D. 1 9:23 AM OPERATIONS ARCHITECT - 1 11:59 PM OPERATIONS ARCHITECT Hospital Encounter [facility] Navi Cruz M.D. 1 7:51 AM OPERATIONS ARCHITECT - 1 11:59 PM OPERATIONS ARCHITECT Hospital Encounter [facility] Navi [...] Khoi Oh M.D. 5 Hospital Encounter [facility]X [facility] Sheela Chaudhari M.D. 5 Hospital [...] Years Used Date Smoking Tobacco: Never Assessed [facility] Utilities Answer Date Recorded In the past 12 months has [employer], [employer], or water [employer] threatened to shut off services in your [...] week 10/22/2021 How often do you attend [facility] or [facility] services? Never 10/22/2021 Do you belong to any clubs o r organizations such as restoration groups, unions, fraternal or athletic groups, or [...] Answer Date Recorded PHQ-2 Score 0 09/05/2024 [facility] Occupat ional [facility] - Occupational Stress Questionnaire Answer Date Recorded [...] your living situation today? I have a [facility] place to live 10/27/2023 Education Answer Date Recorded What is the highest level of school you have completed or the highest degree you have received? 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 Sex Male 10:26 AM OPERATIONS ARCHITECT Gender Identity Not on file Sexual Orientation Not on file Last Filed Vital Signs Vital Sign Reading Time Taken Comments Blood Pressure 99/55 09/12/2024 8:48 AM OPERATIONS ARCHITECT Pulse 55 09/12/2024 8:48 AM OPERATIONS ARCHITECT Temperature 36.1 C (97 F) 09/05/2024 7:59 AM OPERATIONS ARCHITECT Respiratory Rate 16 09/05/2024 7:59 AM OPERATIONS ARCHITECT Oxygen Saturation 96% 09/05/2024 7:59 AM OPERATIONS ARCHITECT Inhaled Oxygen Concentration - - Weight 76.8 kg (169 lb 5 oz) 09/05/2024 7:59 AM OPERATIONS ARCHITECT Height 168 cm (5' 6.14) 09/05/2024 7:59 AM OPERATIONS ARCHITECT Body Mass Index 27.21 09/05/2024 7:59 AM OPERATIONS ARCHITECT Plan of Treatment Not on file Procedures Procedure Name Priority Date/Time Associated Diagnosis Comments EMG Routine 10/09/2024 10:50 AM CDT Numbness Hand BASIC METABOLIC PANEL, S/P Routine 09/05/2024 8:32 AM OPERATIONS ARCHITECT Hypertension Essential Primary ALBUMIN, RANDOM, U Routine 09/05/2024 8:30 AM OPERATIONS ARCHITECT Hypertension Essential Primary GLUCOSE, FASTING, S/P Routine [...] ED patients; some inpatients) 06/30/2021 7:11 AM OPERATIONS ARCHITECT Pain Chest DX PELVIS 1-2 VIEWS RAD - Routine (most inpatients and all outpatients) 11/24/2020 4:43 PM CDT Pain Leg Left DX FEMUR LEFT 2 VIEWS RAD - Routine (most inpatients and all outpatients) 11/24/2020 4:43 PM CDT Pain Leg Left CT CHEST WITHOUT IV CONTRAST RAD - Routine (most inpatients and all outpatients) 08/06/2019 12:35 PM OPERATIONS ARCHITECT Nodule Pulmonary PET CT SKULL TO THIGH [...] EGFR, S/P Routine 02/09/2019 8:08 AM CDT Touch Up Painter Hand Antibiotic Treatment CBC WITH DIFFERENTIAL, B Routine 02/09/2019 8:08 AM CDT Touch Up Painter Hand Antibiotic Treatment ALANINE AMINOTRANSFERASE (ALT), S/P Routine 02/09/2019 8:08 AM CDT Alf Antibiotic Treatment ALKALINE PHOSPHATASE, S/P Routine 02/09/2019 8:08 AM CDT Alf Antibiotic Treatment CREATININE WITH EGFR, S/P Routine 02/02/2019 9:04 AM CDT Alf Antibiotic Treatment CBC WITH DIFFERENTIAL, B Routine 02/02/2019 9:04 AM CDT Touch Up Painter Hand Antibiotic Treatment ALANINE AMINOTRANSFERASE (ALT), S/P Routine 02/02/2019 9:04 AM CDT Touch Up Painter Hand Antibiotic Treatment ALKALINE PHOSPHATASE, S/P Routine 02/02/2019 9:04 AM CDT Alf Antibiotic Treatment CREATININE WITH EGFR, S/P Routine 01/26/2019 8:24 AM CDT Alf Antibiotic Treatment CBC WITH DIFFERENTIAL, B Routine 01/26/2019 8:24 AM CDT Alf Antibiotic Treatment ALANINE AMINOTRANSFERASE (ALT), S/P Routine 01/26/2019 8:24 AM CDT Alf Antibiotic Treatment ALKALINE PHOSPHATASE, S/P Routine 01/26/2019 8:24 AM CDT Touch Up Painter Hand Antibiotic Treatment CREATININE WITH EGFR, S/P Routine 01/19/2019 8:12 AM CDT Alf Antibiotic Treatment CBC WITH DIFFERENTIAL, B Routine 01/19/2019 8:12 AM CDT Alf Antibiotic Treatment ALANINE AMINOTRANSFERASE (ALT), S/P Routine 01/19/2019 8:12 AM CDT Alf Antibiotic Treatment ALKALINE PHOSPHATASE, S/P Routine 01/19/2019 8:12 AM CDT Alf Antibiotic Treatment MR CERVICAL SPINE WITHOUT AND [...] a URINALYSIS, DIPSTICK Routine 09/21/2017 8:39 AM OPERATIONS ARCHITECT Department Of Transportation Examination Department Of [employer] DX CHEST AP OR PA AND [...] METABOLIC PANEL, S/P Routine 07/28/2016 8:09 AM OPERATIONS ARCHITECT LIPID PANEL, S Routine 07/28/2016 8:09 AM OPERATIONS ARCHITECT DIPSTICK, U Routine 10/06/2015 10:09 AM CDT [...] CDT SURGICAL PATHOLOGY Routine 09/22/2010 12:00 AM OPERATIONS ARCHITECT SURGICAL PATHOLOGY Routine 09/22/2010 12:00 AM OPERATIONS ARCHITECT DX CHEST AP OR PA AND LATERAL 2 VIEWS Routine 08/02/2009 10:32 AM OPERATIONS ARCHITECT DX CHEST AP OR PA AND LATERAL 2 VIEWS Routine 04/29/2008 2:16 PM CDT RADIOLOGY IMAGE EXAM Routine 04/29/2008 2:05 PM CDT Results * EMG (10/09/2024 10:50 AM CDT) 10/09/2024 11:1 5 AM CDT Narrative EMG - 10/09/2024 12:55 PM CDT Table formatting from the original result was not included. 09-Oct-2024 Electromyography Final Report Study Number: 1 EMG Database Report Writer: Ayana Brooks 127 or [phone] Referred by: KATHARINE ALCALA () Referred for: [...] sensory predominant polyneuropathy. Wilder Brooks (127 or [phone]) NERVE CONDUCTIONS Record Rep Normal Normal Distal [...] * Basic Metabolic Panel (09/05/2024 8:32 AM OPERATIONS ARCHITECT) Only the most recent of3 resultswithin the time period is included. [facility] Potassium, P 4.4 3.6 - 5.2 mmol/L 09/05/2024 9:14 AM OPERATIONS ARCHITECT OWAT Sodium, P 140 135 - 145 mmol/L 09/05/2024 9:14 AM OPERATIONS ARCHITECT OWAT Chloride, P 104 98 - 107 mmol/L 09/05/2024 9:14 AM OPERATIONS ARCHITECT OWAT Bicarbonate, P 25 22 - 29 mmol/L 09/05/2024 9:14 AM OPERATIONS ARCHITECT OWAT Anion Gap, P 11 7 - 15 09/05/2024 9:14 AM OPERATIONS ARCHITECT OWAT BUN (Blood Urea Nitrogen), P 18 8 - 24 mg/dL 09/05/2024 9:14 AM OPERATIONS ARCHITECT OWAT Creatinine 0.76 0.74 - 1.35 mg/dL 09/05/2024 9:14 AM OPERATIONS ARCHITECT OWAT Estimated GFR (eGFR) >90 >=60 mL/min/BSA 09/05/2024 9:14 AM OPERATIONS ARCHITECT OWAT Comment: Estimated GFR calculated using the 2020 CKD_EPI creatinine equation. Calcium, Total, P 9.0 8.8 - 10.2 mg/dL 09/05/2024 9:14 AM OPERATIONS ARCHITECT OWAT Glucose, P 97 70 - 140 mg/dL 09/05/2024 9:14 AM OPERATIONS ARCHITECT OWAT Blood (Blood, Venous) 09/05/2024 8:32 AM OPERATIONS ARCHITECT 09/05/2024 8:49 AM OPERATIONS ARCHITECT us Katharine Alcala APRN, C.N.P., D.N.P. LAB BLOOD AD D-ON Final Result [facility] [address] [place] [address], [facility] [place] [address] [place] [address] * (ABNORMAL) Albumin, Random, Urine (09/05/2024 8:30 AM OPERATIONS ARCHITECT) Microalbumin 56.0 mg/L 09/05/2024 9:26 AM OPERATIONS ARCHITECT OW[facility] Creatinine 105 mg/dL 09/05/2024 9:26 AM OPERATIONS ARCHITECT OW[facility] Albumin/Creatinin e Ratio 53(H) <17 mg/g 09/05/2024 9:26 AM OPERATIONS ARCHITECT OW[facility] Urine (Urine, Midstream) 09/05/2024 8:30 AM OPERATIONS ARCHITECT 09/05/2024 8:40 AM OPERATIONS ARCHITECT us Katharine Alcala APRN, C.N.P., D.N.P. LAB URINE OR DERABLES Final Result Performing Organization Address [facility] Co de Phone Number [facility] [address] [place] [address], [facility] [place] [address] [place] [address] * Glucose, Fasting (10/27/2023 11:38 AM CDT) [...] NON ADD-ON Final Result Performing Organization Address [facility] Co de Phone Number [facility] [address] [place] [address], [facility] [place] [address] [place] [address] * Lipid Panel (10/27/2023 11:37 AM CDT) [...] D.N.P. LAB BLOO D ADD-ON Final Result [facility] [address] [place] [address], [facility] [place] [address] [place] [address] * HCV Ab Scrn w/Reflex to HCV PCR, Serum (10/27/2023 11:37 AM CDT) HCV Ab Screen, S Negative Negative 10/27/19 2:32 PM CDT MKTO Comment: Biotin has been identified by the dragline engineer as a potential interfering substance. Higher concentrations of biotin may be found in multivitamins, hair/nail supplements, and workout supplements. If the result does not match clinical observations, repeat testing after patient refrains from the use of supplements for at least 12 hours. Blood (Blood, Venous) 10/27/2023 11:37 AM CDT 10/27/2023 1:34 PM CDT Narrative [facility] - 10/27/2023 2:32 PM CDT Specimen Information: Specimen ID: [id number] Specimen Type: Blood Specimen Collection Start Date: 10/27/2023 11:37 AM Specimen Received Date: 10/27/2023 1:34 PM Specimen ID: [id number] Specimen Type: Blood Specimen Collection Start Date: 10/27/2023 11:37 AM Specimen Received Date: 10/27/2023 1:59 PM [facility] Nolan Winn APRN C.N .P., D.N.P. LAB MICROBIOLOGY - BLOOD [place] [address], [place] [address] * Comprehensive Metabolic Panel (10/27/2023 11:37 AM [...] D.N.P. LAB BLOO D ADD-ON Final Result [facility] [address] [place] [address], [facility] OWAT [facility] [place] [address] [place] [address] * (ABNORMAL) CBC with Differential, Blood (12/17/2022 [...] Falk P.A.-C. LAB BLOOD ADD-ON Final Result [facility] [address] [facility] [place] [address], [facility] FB60 [facility] [place] [address] [place] [address] * US Abdomen Complete (11/30/2022 11:09 AM [...] using the Xpert Xpress CoV-2 plus assay ([employer] performed on the [employer] DX systems has received Emergency Use Authorization (EUA) by the U.S. Food and Drug Administration. Performance characteristics were verified by [facility] in a manner consistent with CLIA requirements. Fact sheets for this Emergency Use Authorization (EUA) assay can be found at the following links: For Healthcare Providers: https://www.fda.gov/media/891821/download For Patients: https://www.fda.gov/media/248979/download SARS Coronavirus 2, Source Nasopharynx 05/01/2022 3:39 PM CDT OWAT 05/01/2022 3:01 PM CDT 05/01/2022 3:39 PM CDT us Jaime Fowler P.A.-C. LAB MICROBIOLOGY - GE NERAL ORDERABLES Final Result [facility] [address] [place] [address], [place] OW[place] [facility] [place] [address] [place] [address] * CT Head without IV Contrast (10/14/2021 [...] acute sinusitis inthe appropriate clinical setting. us Delroy Restrepo III, M.D. IMG CT PROCEDURES Final Result * CT Chest Angiogram and Pulmonary Arteries with IV Contrast (06/30/2021 7:11 AM OPERATIONS ARCHITECT) Anatomical Region Laterality Modality Chest, Cardiovascular RST LO S, Thoracic ARZ LOS, Thoracic FLA LOS N/A Computed Tomography 06/30/2021 7:21 AM OPERATIONS ARCHITECT Impressions 06/30/2021 7:30 AM OPERATIONS ARCHITECT 1. Negative for acute pulmonary embolism. 2. Pulmonary emphysema. 3. Similar partial collapse the right middle lobe with a more focal nodular area of consolidation. Recommend continued imaging follow-up. 4. Borderline bilateral hilar lymphadenopathy of indeterminate significance. Narrative 06/30/2021 7:30 AM OPERATIONS ARCHITECT EXAM: CT CHEST ANGIOGRAM AND PULMONARY ARTERIES [...] collapse the right middle lobe with similar [id number] mm nodular consolidation or mass on the [...] Borderline bilateral hilar lymphadenopathy of indeterminatesignificance. Cade Mancilla M.D. [facility] [place]ED[place] Final Result * DX Pelvis [...] the lower lumbar spine. Zeinab Morris P.A.-C. [facility] PRO CEDURES Final Result * [...] Chest without IV Contrast (08/06/2019 12:35 PM OPERATIONS ARCHITECT) Only the most recent of2 resultswithin the time period is included. Anatomical Region Laterality Modality Chest, Thoracic RST LOS, Tho racic ARZ LOS, Thoracic FLA LOS N/A Computed Tomography, Compute d Tomography 08/06/2019 4:33 PM OPERATIONS ARCHITECT Impressions 08/06/2019 4:40 PM OPERATIONS ARCHITECT 1. Further right middle lobe collapse without a definite central obstructing lesion identified, may represent right middle lobe syndrome. 2. Other incidental findings are detailed in the body of the report. Narrative 08/06/2019 4:40 PM OPERATIONS ARCHITECT EXAM: CT CHEST WITHOUT IV CONTRAST No [...] RADIOPHARMACEUTICAL/MEDS: Route: intravenous fludeoxyglucose F 18 injection INTERMEDIATE (FDG F-18),10.16 millicurie TECHNIQUE: F-18 FDG PET/CT [...] RADIOPHARMACEUTICAL/MEDS: Route: intravenous fludeoxyglucose F 18 injection INTERMEDIATE (FDG F-18),10.16 millicurie TECHNIQUE: F-18 FDG PET/CT [...] included. Ventricular Rate ECG/Min 48 BPM MUSE W[place] Interval 198 ms MUSE QRSD Interval 162 ms MUSE QT Interval 506 ms MUSE QTC Interval 452 ms MUSE P [place] 75 degrees MUSE R [place] -42 degrees MUSE T Wave [place] 32 degrees MUSE 04/26/2019 8:09 AM CDT [...] the 2009 CKD_EPI creatinine equation. eGFR-Black/Afric an Trinidadian >90 >=60 mL/min/BSA 04/09/2019 10:04 AM CDT Comment: ----ADDITIONAL INFORMATION---- Estimated GFR calculated using the 2009 CKD_EPI creatinine equation. Blood (Blood, Venous) 04/09/2019 9:03 AM CDT 04/09/2019 9:06 AM CDT Thiago Huffman M.D. LAB BLOOD ADD-ON Final Result [facility] [address] [place] [address], [facility] * CT Abdomen Pelvis with IV [...] P.A.-C., M.S. LAB BLOOD ADD-ON Final Result [facility] [address] [place] [address], [facility] * Alkaline Phosphatase (02/09/2019 8:08 AM CDT) Only the most recent of7 resultswithin the time period is included. Alkaline Phosphatase, S 79 40 - 129 U/L 02/09/2019 9:24 AM CDT Blood (Blood, Venous) 02/09/2019 8:08 AM CDT 02/09/2019 8:13 AM CDT us Kym SHRESTHA, P.A.-C., M.S. LAB BLOOD ADD-ON Final Result [facility] [address] [place] [address], [facility] * MR Cervical Spine without and [...] of the right C3-4 facet with periarticular [id number] edema and enhancement. This is very likely [...] 4:20 PM CDT Comment:Specimen Source Site : [facility] - 01/21/2019 5:02 PM CDT Specimen Information: Specimen ID: [id number] Specimen Source: Blood, PICC Specimen Comment: Specimen Source Site: picc Specimen Collection Start Date: 01/16/2019 3:45 PM Specimen Received Date: 01/16/2019 4:20 PM Specimen ID: [id number] Specimen Source: Blood, PICC Specimen Comment: Specimen Source Site: picc Specimen Collection Start Date: 01/16/2019 3:45 PM Specimen Received Date: 01/16/2019 4:20 PM Specimen ID: [id number] Specimen Source: Blood, PICC Specimen Comment: Specimen Source Site: picc Specimen Collection Start Date: 01/16/2019 3:45 PM Specimen Received Date: 01/16/2019 4:20 PM Raman Croft M.D. LAB MICROBIOLOGY - G ENERAL ORDERABLES Final Result [facility] [address] [place] [address], [facility] * IR Abscess Drain Removal (01/11/2019 [...] reagent. Its performance characteristics were determined by [facility] in a manner consistent with CLIA requirements. This test has not been cleared or approved by the U.S. Food and Drug Administration. Ehrlichia Chaffeensis ([facility]) Ab, IgG <1:64 <1:64 titer 01/11/2019 4:39 PM CDT Comment: ----ADDITIONAL INFORMATION---- This test was developed using an analyte specific reagent. Its performance characteristics were determined by [facility] in a manner consistent with CLIA requirements. This test has not been cleared or approved by the U.S. Food and Drug Administration. Babesia microti IgG Ab, S <1:64 <1:64 titer 01/12/2019 10:14 AM CDT Comment: ----ADDITIONAL INFORMATION---- This test was developed using an analyte specific reagent. Its performance characteristics were determined by [facility] in a manner consistent with CLIA requirements. This test has not been cleared or approved by the U.S. Food and Drug Administration. Blood (Blood, Venous) 01/10/2019 9:43 AM CDT 01/11/2019 7:06 AM CDT us Brennan Pepper APRN CMeyNJenny LAB MICROBIOLOGY - B LOOD ORDERABLES Final Result [facility] [address] [place] [address] * IR Abscess Drain Exchange (01/04/2019 1:31 [...] the liver. Here for further evaluation. TECHNIQUE: Home Care Aide film was obtained. The tube was injected and found to be 6 occluded. The skin overlying the tube was prepped and draped usual sterile fashion. The tube was removed over an LR torque wire and a new 10 Albanian tube was placed. There is a multiseptated [...] of theliver. Here for further evaluation. TECHNIQUE: Home Care Aide film was obtained. The tube was injected [...] HISTORY: Intrahepatic collection. Minimal output. TECHNIQUE: Initial cash control specialist image demonstrated a right upper quadrant pigtail [...] HISTORY: Intrahepatic collection. Minimal output. TECHNIQUE: Initial cash control specialist image demonstrated a right upper quadrantpigtail catheter. [...] CDT 1. Ultrasound-guided placement of a 10 Albanian catheter into the right hepatic lobe fluid [...] lobe fluid collection Drainage catheter size: 10 Albanian Volume aspirated: 6 cc sanguinous fluid was [...] lobe fluid collection Drainage catheter size: 10 Albanian Volume aspirated: 6 cc sanguinous fluid was aspirated Complication: None. Blood loss: None. PATIENT INSTRUCTIONS: Patient may be dismissed from the radiologydepartment when dismissal criteria met. POST-PROCEDURE DIAGNOSIS: Right hepatic lobe fluid collection IMPRESSION: 1. Ultrasound-guided placement of a 10 Albanian catheter into the righthepatic lobe fluid collection. [...] HIEU ORDERABLES Final Result Performing Organization Address City/[facility]/ZIP Co de Phone Number MMODAL NA * [...] C.N.P. LAB BLOOD ADD-ON Lakisha l Result [place] [id number] * [place] Fluoro Less Than 1 [...] hospital canales for ongoing care. Findings: The cash control specialist film was normal. The upper GI tract [...] well. Complications: No immediate complications. Sedation: General broke man Participation: I personally performed the entire procedure. [...] PROCE DURES Final Result Performing Organization Address [facility] Co de Phone Number IIMI NA * US Liver Aspiration with Image [...] Report electronically signed by [place] M.D. [phone] I verify that I have examined all [...] OR DERABLES Final Result Performing Organization Address City/[facility] Co de Phone Number [facility] [address] * (ABNORMAL) Bacterial Culture, Aerobic + Susc (12/18/2018 10:30 AM CDT) Bacterial Culture, Aerobic + Susc STREPTOCOCCUS INTERMEDIUS 3+ Semi-Urgent Result. (A) 12/21/2018 3:09 PM CDT Semi-Urgent This is a semi-urgent result(BIANCHI) [facility] Fluid (Liver) 12/18/2018 10: 30 AM CDT [...] ENERAL ORDERABLES Final Result Performing Organization Address City/State/[facility] Co de Phone Number [facility] [address] * Fungal Smear (12/18/2018 10:30 AM CDT) Fungal Smear Negative. 12/18/2018 3:24 PM CDT Fluid (Liver) 12/18/2018 10: 30 AM CDT 12/18/2018 11:20 AM CDT Comment:Specimen Source Site : Fluid us Tia SpencerCMey LAB MICROBIOLOGY - G ENERAL ORDERABLES Final Result Performing Organization Address [facility] Co de Phone Number [facility] [address] * (ABNORMAL) Gram Stain (12/18/2018 10:30 AM CDT) Gram Stain White blood cells,Many.(A) 12/18/2018 12:56 PM CDT Gram Stain GRAM POSITIVE COCCUS RESEMBLING STREPTOCOCCUS Few. (A) 12/18/2018 12:56 PM CDT Fluid (Liver) 12/18/2018 10: 30 AM CDT 12/18/2018 11:20 AM CDT Comment:Specimen Source Site : Fluid us Tia SpencerCMey LAB MICROBIOLOGY - G ENERAL ORDERABLES Final Result Performing Organization Address [facility] Co de Phone Number [facility] [address] * Fungal Culture, Routine (12/18/2018 10:30 AM CDT) Fungal Culture, Routine No growth after 24 days of incubation. 01/11/2019 1:01 PM CDT Fluid (Liver) 12/18/2018 10: 30 AM CDT 12/18/2018 11:20 AM CDT Comment:Specimen Source Site : Fluid Tia Rivas.MikeC. LAB MICROBIOLOGY - G ENERAL ORDERABLES Final Result Performing Organization Address City/[facility]/ZIP Co de Phone Number [facility] [address] * Bacterial Culture, Anaerobic + Susc (12/18/2018 10:30 AM CDT) Bacterial Culture, Anaerobic + Susc No growth after 14 days of incubation. 01/01/2019 9:57 AM CDT Fluid (Liver) 12/18/2018 10: 30 AM CDT 12/18/2018 11:20 AM CDT Comment:Specimen Source Site : Fluid us Tia Landa P.A.-C. LAB MICROBIOLOGY - G ENERAL ORDERABLES Final Result Performing Organization Address [facility] Co de Phone Number [facility] [address] * (ABNORMAL) Hepatic Function Panel (12/17/2018 [...] ADD-ON Fin al Result Performing Organization Address [facility] Co de Phone Number [address] * (ABNORMAL) PT (Prothrombin Time) with [...] ADD-ON Fin al Result Performing Organization Address [facility] de Phone Number [facility] [address] * AFP (Alpha-Fetoprotein), Tumor Marker (12/16/2018 12:52 AM CDT) Pathologist [facility] Alpha-Fetoprotein, Tumor Marker, S 0.9 <6.0 ng/mL 12/16/2018 11:35 AM CDT Comment: ----ADDITIONAL INFORMATION---- The testing method is an immunoenzymatic assay manufactured by [employer] and performed on the [employer] DxI 800. Values obtained with different assay [...] ADD-ON Final Res ult Performing Organization Address [facility] Co de Phone Number [facility] [address] [place] [address] * (ABNORMAL) Dipstick, POCT, Urine (12/15/2018 8:54 PM CDT) Glucose, POCT, U Negative Negative 12/15/2018 8:56 PM CDT POC T [facility] Ketone, POCT, U Negative Negative mL 12/15/2018 8:56 PM CDT POC T [facility] Specific [place], POCT, U 1.010 1.001 - 1.035 12/15/2018 8:56 PM CDT POC T [facility] Blood, POCT, U Negative Negative 12/15/2018 8:56 PM CDT POC T [facility] pH, POCT, Urine 5.5 5.0 - 8.0 12/15/2018 8:56 PM CDT POC [facility] Protein, POCT, U 100(A) Negative 12/15/2018 8:56 PM CDT POC T [facility] Nitrites, POCT, U Negative Negative 12/15/2018 8:56 PM CDT POC [facility] Leukocytes, POCT, U Negative Negative 12/15/2018 8:56 PM CDT POC T [facility] Urine 12/15/2018 8:54 PM CDT 12/15/2018 8:57 PM CDT us Unknown Provider LAB POCT ORDERABLES - DEVICE Fi nal Result Performing Organization Address [facility] Co de Phone Number POC T [facility] [address] [place] [address], [facility] * Microscopic Manual (12/15/2018 8:52 PM CDT) Microscopy Normal 12/15/2018 9:39 PM CDT [facility] RBC <3 <3 /hpf 12/15/2018 9:39 PM CDT [facility] Urine 12/15/2018 8:52 PM CDT 12/15/2018 9:17 PM CDT Lupillo Araiza M.D. LAB URINE ORDERABLES Final Result Performing Organization Address [facility] Co de Phone Number [address] * Urine Culture (12/15/2018 8:52 PM CDT) Urine Culture No growth after 1 day of incubation. 12/17/2018 7:04 AM CDT Urine (Urine, Midstream) 12/15/2018 8:52 PM CDT 12/15/2018 10:03 PM CDT Comment:Specimen Source Site : Urine Lupillo Araiza M.D. LAB MICROBIOLOGY - GENERAL ORDERABLES Final Result Performing Organization Address [facility] de Phone Number [address] * Gram Stain, Urine (12/15/2018 8:52 PM CDT) Gram's Stain, Screen, U Negative 12/15/2018 9:24 PM CDT [facility] Comment: ----ADDITIONAL INFORMATION---- This test has been modified from the dragline engineer's instructions. Its performance characteristics were determined by [facility] in a manner consistent with CLIA requirements. This test has not been cleared or approved by the U.S. Food and Drug Administration. Urine (Urine, Midstream) 12/15/2018 8:52 PM CDT 12/15/2018 9:17 PM CDT Lupillo Araiza M.D. LAB URINE ORDERABLES Final Result Performing Organization Address [facility] Co de Phone Number [address] * (ABNORMAL) Urinalysis with Microscopic: Urine, Midstream (12/15/2018 8:52 PM CDT) Source Void 12/15/2018 9:42 PM CDT [facility] Appearance Normal Normal 12/15/2018 9:42 PM CDT [facility] Osmolality, U 784 150 - 1150 mOsm/kg 12/15/2018 9:30 PM CDT [facility] pH, U 5.3 4.5 - 8.0 12/15/2018 9:30 PM CDT [facility] Comment: ----ADDITIONAL INFORMATION---- This test was developed and its performance characteristics determined by [facility] in a manner consistent with CLIA requirements. This test has not been cleared or approved by the U.S. Food and Drug Administration. Glucose 14 0 - 15 mg/dL 12/15/2018 9:42 PM CDT [facility] Protein, U 81(H) <26 mg/dL 12/15/2018 9:42 PM CDT [facility] Comment: ----ADDITIONAL INFORMATION---- On 01/11/2017 the total protein assay method changed resulting in approximately a 15% increase in protein values. Protein/Osmolality 1.03(H) <0.42 Ratio 12/15 9:42 PM CDT [facility] Comment: ----ADDITIONAL INFORMATION---- On 01/11/2017 the total protein assay method changed resulting in approximately a 15% increase in protein values. Predicted 24 Hr Protein 971 mg/24 h 12/15/2018 9:42 PM CDT [facility] Predicted Range 308-3061 mg/24 h 9 9:42 PM CDT [facility] Hemoglobin, QL Negative Negative 12/15/2018 9:39 PM CDT [facility] Urine (Urine, Midstream) 12/15/2018 8:52 PM CDT 12/15/2018 9:17 PM CDT us Lupillo Araiza M.D. LAB URINE ORDERABLES Final Result [facility] [address] [place] [address], [facility] * US Abdomen Limited Liver (12/15/2018 [...] of2 resultswithin the time period is included. [facility] Lipase, S <10(L) 12 - 61 U/L 12/15/2018 8:51 PM CDT [facility] Blood (Blood, Venous) 12/15/2018 7:53 PM CDT 12/15/2018 8:10 PM CDT us Pedro Treadwell M.D. LAB BLOOD ADD-ON Final Result Performing Organization Address City/[facility]/ZIP Co de Phone Number [facility] [address] * Lactate (12/15/2018 7:53 PM CDT) [facility] Lactate, P 0.9 0.5 - 2.2 mmol/L 12/15/2018 8:10 PM CDT [facility] Blood (Blood, Venous) 12/15/2018 7:53 PM CDT 12/15/2018 7:59 PM CDT us Pedro Treadwell M.D. LAB BLOOD NON ADD-ON Final Re sult Performing Organization Address City/[facility]/ZIP Co de Phone Number [facility] [address] * (ABNORMAL) Urinalysis with Microscopic if Indicated (12/15/2018 11:02 AM CDT) [facility] Source Midstream 12/15/2018 11:14 AM CDT [facility] Clarity Clear Clear 12/15/2018 11:14 AM CDT [facility] Color Elsa 12/15/2018 11:14 AM CDT [facility] Comment: ----REFERENCE VALUE---- Colorless Yellow Elsa Blood Negative Negative 12/15/2018 11:14 AM CDT [facility] Nitrite Negative Negative 12/15/2018 11:14 AM CDT [facility] Leukocyte Esterase Negative Negative 12/15/2018 11:14 AM CDT [facility] Protein 100(A) mg/dL 12/15/2018 11:14 AM CDT [facility] Comment: ----REFERENCE VALUE---- Negative Trace Glucose Negative Negative mg/dL 12/15/2018 11:14 AM CDT [facility] Ketone Negative Negative mg/dL 12/15/2018 11:14 AM CDT [facility] Bilirubin Small(A) Negative 12/15/2018 11:14 AM CDT [facility] pH 5.0 5.0 - 8.0 12/15/2018 11:14 AM CDT [facility] Specific [place] >1.035 1.001 - 1.035 12/15/2018 11:14 AM CDT [facility] Urobilinogen 2.0(A) 0.2 - 1.0 12/15/2018 11:14 AM CDT [facility] Urine (Urine, Clean Catch) 12/15/2018 11:02 AM CDT 12/15/2018 11:06 AM CDT us Lucila Jimenez P.A.-C., P.A. LAB URINE ORDERABLES Final Result [facility] [address] [place] [address], [facility] * Microscopic Automated (12/15/2018 11:02 AM CDT) White Blood Cells None Seen /hpf 12/15/2018 11:14 AM CDT [facility] Comment: ----REFERENCE VALUE---- Males: 0-3 Females: 0-10 Unknown: 0-10 Red Blood Cells Occ-2 0 - 2 /hpf 12/15/2018 11:14 AM CDT [facility] Hyaline Casts 4-10 /lpf 12/15/2018 11:14 AM CDT [facility] Squamous Cells Occ-3 /hpf 12/15/2018 11:14 AM CDT [facility] Urine 12/15/2018 11:0 2 AM CDT 12/15/2018 11:06 AM CDT Lucila Jimenez P.A.-C., P.A. LAB URINE ORDERABLES Final Result Performing Organization Address City/[facility]/ZIP Co de Phone Number [facility] [address] [place] [address] * Amylase, Total (12/15/2018 9:49 AM CDT) Pathologist [facility] Amylase, Total, P 34 26 - 102 U/L 12/15/2018 10:09 AM CDT [facility] Blood (Blood, Venous) 12/15/2018 9:49 AM CDT 12/15/2018 9:51 AM CDT Lucila Jimenez P.A.-C., P.A. LAB BLOOD ADD-ON Lakisha l Result Performing Organization Address City/[facility]/ZIP Co de Phone Number [facility] [address] [place] [address] * Urinalysis no Reflex (09/21/2017 8:39 AM OPERATIONS ARCHITECT) Source Midstream 09/21/2017 9:00 AM OPERATIONS ARCHITECT [facility] Clarity Clear Clear 09/21/2017 9:[address] [facility] Color Yellow 09/21/2017 9:[address] [facility] Comment: ----REFERENCE VALUE---- Colorless Yellow Elsa Blood Negative Negative 09/21/2017 9:[address] [facility] Nitrite Negative Negative 09/21/2017 9:[address] [facility] Leukocyte Esterase Negative Negative 09/21/2017 9:[address] [facility] Protein, U Negative mg/dL 09/21/2017 9:[address] [facility] Comment: ----REFERENCE VALUE---- Negative Trace Glucose Negative Negative mg/dL 09/21/2017 9:[address] [facility] Ketone Negative Negative mg/dL 09/21/2017 9:[address] [facility] Bilirubin Negative Negative 09/21/2017 9:[address] [facility] pH 6.5 5.0 - 8.0 09/21/2017 9:[address] [facility] Specific [place] 1.029 1.001 - 1.035 09/21/2017 9:[address] [facility] Urobilinogen 1.0 0.2 - 1.0 09/21/2017 9:[address] [facility] Urine (Urine, Clean Catch) 09/21/2017 8:39 AM OPERATIONS ARCHITECT 09/21/2017 8:39 AM [facility] us Michael Schmitz APRN, C.N.P. LAB URINE ORDERABLES Final Result [facility] [address] [place] [address], [facility] * (ABNORMAL) Automated Differential (04/26/2017 4:10 [...] ADD-ON Final Res ult Performing Organization Address [facility] de Phone Number POWERCHART NA * S-TSH (Thyroid-Stimulating Hormone - Sensitive) (04/26/2017 4:10 PM CDT) TSH (Thyrotropin) 2.45 0.27 - 4.20 MIUL POWERCHART Comment: Biotin has been identified by the dragline engineer as a potential interfering substance. Higher concentrations of biotin may be found in multivitamins, hair/nail supplements, and workout supplements. If the result does not match clinical observations, repeat testing after patient refrains from the use of supplements for at least 12 hours. Blood 04/26/2017 4:10 PM CDT us José Antonio Sams M.D. LAB BLOOD ADD-ON Final Res ult Performing Organization Address [facility] de Phone Number POWERCHART NA * Sodium (04/26/2017 4:10 PM CDT) Sodium, S 143 135 - 145 MMOLL POWERCHART Blood 04/26/2017 4:10 PM CDT us José Antonio Sams M.D. LAB BLOOD ADD-ON Final Res ult Performing Organization Address [facility] de Phone Number POWERCHART NA * Potassium, [...] 3. Bilateral varicoceles. Tia Liu R.V.T., R.PhongMMeyS. [facility] MADELINE BYNUM Edited Result - Final * [...] POWERCHART Ketones, QL(U) Negative Negative POWERCHART Specific [place], POCT, U 1.025 1.001 - 1.035 POWERCHART Comment: Reference Range Specific [place]: 1.000-1.035 pH, POCT, Urine 7.0 POWERCHART Comment: UA pH Reference Range pH: 5.0-8.0 Protein, Ur, Dip Negative Negative POWERCHART Urobilinogen 1.0 0.2 MGDL POWERCHART Comment: Reference Range Urobilinogen: 0.2-1.0 mg/dL HXNITRITE Positive(A) Negative POWERCHART HXBLOOD Negative Negative POWERCHART Leukocyte Esterase Small(A) Negative POWERCHART Urine, First Voided 12/03/2016 9:12 AM CDT Koby Baumann P.A.-C. LAB URINE ORDERABLES Lakisha l Result Performing Organization Address [facility] de Phone Number POWERCHART * Chlamydia / [...] Edited Result - Final Performing Organization Address [facility] Phone Number POWERCHART * Chlamydia trachomatis Amplified [...] Edited Result - Final Performing Organization Address [facility] de Phone Number POWERCHART * Dipstick, Urine (09/27/2016 9:41 AM CDT) Only the most recent of3 resultswithin the time period is included. HXUr Color Yellow Yellow POWERCHART Clarity Clear Clear POWERCHART Glucose Negative Negative POWERCHART HXBILIRUBIN Negative Negative POWERCHART Ketones, QL(U) Negative Negative POWERCHART Specific [place], POCT, U 1.024 1.001 - 1.035 POWERCHART Comment: Reference Range Specific [place]: 1.000-1.035 pH, POCT, Urine 7.0 POWERCHART Comment: UA pH Reference Range pH: 5.0-8.0 Protein, Ur, Dip Negative Negative POWERCHART Urobilinogen 1.0 0.2 MGDL POWERCHART Comment: Reference Range Urobilinogen: 0.2-1.0 mg/dL HXNITRITE Negative Negative POWERCHART HXBLOOD Negative Negative POWERCHART Leukocyte Esterase Negative Negative POWERCHART Urine, First Voided 09/27/2016 9:41 AM CDT Thiago Huffman M.D. LAB URINE ORDERABLES Final Re sult Performing Organization Address [facility] de Phone Number POWERCHART * PSA (Prostate-Specific Antigen) Screen (10/31/2014 2:58 PM CDT) Only the most recent of2 resultswithin the time period is included. Prostate-Specif ic Ag 0.3 0.0 - 6.5 NGML POWERCHART Blood 10/31/2014 2:58 PM CDT us Navi Cruz M.D. LAB BLOOD ADD-ON Final Resul t Performing Organization Address [facility] de Phone Number POWERCHART * AST (Aspartate Aminotransferase) (03/01/2012 8:11 AM CDT) Only the most recent of2 resultswithin the time period is included. Aspartate Aminotransferase (AST), S 29 8 - 48 UNITL POWERCHART Blood 03/01/2012 8:11 AM CDT us Navi Cruz M.D. LAB BLOOD ADD-ON Final Resul t Performing Organization Address [facility] de Phone Number POWERCHART * Glucose (12/02/2011 [...] ADD-ON Final Resul t Performing Organization Address [facility] de Phone Number POWERCHART * Urinalysis, Routine (10/21/2011 12:06 PM CDT) Source Clean Void Urine POWERCHART HXUr Color STRAW POWERCHART Glucose Negative Negative POWERCHART HXBILIRUBIN Negative Negative POWERCHART Ketones, QL(U) Negative Negative POWERCHART Specific [place], POCT, U >=1.030 >=1.030 POWERCHART pH, POCT, Urine 5.0 8.5 POWERCHART Protein, Ur, Dip Negative Negative POWERCHART Urobilinogen 0.2 1.0 POWERCHART HXNITRITE Negative Negative POWERCHART HXBLOOD Negative Negative POWERCHART Leukocyte Esterase Negative Negative POWERCHART Urine 10/21/2011 12:0 6 PM CDT Navi Cruz M.D. LAB URINE ORDERABLES Final R esult Performing Organization Address [facility] de Phone Number POWERCHART * Urine Microscopic [...] ORDERABLES Final R esult Performing Organization Address City/[facility]/ZIP Co de Phone Number POWERCHART * Pathology Surgical Pathology (09/22/2010 12:00 AM OPERATIONS ARCHITECT) Only the most recent of2 resultswithin the time period is included. 09/22/2010 Narrative [facility] - 09/30/2010 10:46 AM CDT PATIENT IMAGES Choose the Image button to view related documents. us Historical Provider LAB SURG PATH ORDERABLES Fin al Result Performing Organization Address [facility] Co de Phone Number [facility] * XR Chest 2 Views (04/29/2008 [...] 01/16/2019 Mass Hepatic 01/16/2019 Pain Cervical 01/16/2019 Alf Antibiotic Treatment 01/16/2019 Mass Hepatic 01/16/2019 Rigors 01/16/2019 Mass Hepatic 01/17/2019 Pain Cervical 01/17/2019 Mass Hepatic 01/17/2019 Rigors 01/17/2019 Mass Hepatic 01/18/2019 Mass Hepatic 01/19/2019 Touch Up Painter Hand Antibiotic Treatment 01/19/2019 Rigors 01/19/2019 Mass Hepatic 01/20/2019 Mass Hepatic 01/21/2019 Mass Hepatic 01/22/2019 Rigors 01/22/2019 Rigors 01/23/2019 Mass Hepatic 01/23/2019 Mass Hepatic 01/24/2019 Rigors 01/24/2019 Rigors 01/25/2019 Mass Hepatic 01/25/2019 Alf Antibiotic Treatment 01/26/2019 Rigors 01/26/2019 Mass Hepatic 01/26/2019 Mass Hepatic 01/27/2019 Mass Hepatic 01/28/2019 Touch Up Painter Hand Antibiotic Treatment 01/29/2019 Rigors 01/29/2019 Mass Hepatic 01/29/2019 Mass Hepatic 01/30/2019 Rigors 01/30/2019 Mass Hepatic 01/31/2019 Rigors 01/31/2019 Touch Up Painter Hand Antibiotic Treatment 02/01/2019 Rigors 02/01/2019 Mass Hepatic 02/01/2019 Mass Hepatic 02/02/2019 Alf Antibiotic Treatment 02/02/2019 Mass Hepatic 02/02/2019 Rigors 02/02/2019 Mass Hepatic 02/03/2019 Mass Hepatic 02/04/2019 Mass Hepatic 02/05/2019 Rigors 02/05/2019 Rigors 02/06/2019 Mass Hepatic 02/06/2019 Mass Hepatic 02/07/2019 Rigors 02/07/2019 Mass Hepatic 02/08/2019 Rigors 02/08/2019 Alf Antibiotic Treatment 02/09/2019 Mass Hepatic 02/09/2019 Rigors 02/09/2019 Mass Hepatic 02/10/2019 Mass Hepatic 02/11/2019 Rigors 02/12/2019 Mass Hepatic 02/12/2019 Touch Up Painter Hand Antibiotic Treatment 02/13/2019 Mass Hepatic 02/13/2019 Mass [...] 12/15/2018 N[facility] Pulmonary Solitary 12/15/2018 Care Teams Trim Installer Relationship Specialty Start Date End Date Katharine Alcala APRN, C.N.P., D.N.P. [address] [place] [id number] PCP - General 03/18/24
[2024-11-17] MEDS: cephALEXin 500 MG CAPSULE PO (20:46)
== END 2024-11-17 20:46 | disposition home or self-care (01) ==
PROVIDERS: Emergency Provider Emergency Medicine Emergency Medical Services
DX: S61.412A Laceration without foreign body of left hand, initial encounter (principal); W26.9XXA Contact with unspecified sharp object(s), initial encounter
CPT/HCPCS: 12004; 99283; 99284; A9270